=== PATIENT | female | born 1955 | race Caucasian/White ===

== ENCOUNTER 2019-07-24 08:34 | Emergency (ER) | payer SELFPAY ==
[2019-07-24 08:40] VITALS: BP 111/66; PULSE 133; RESP 28; TEMP 36.6; O2SAT 96; BMI 18.3
[2019-07-24 09:11] LABS: Absolute Lymphocyte Count 0.93 X10^3/uL (0.83-4.51); Absolute Neutrophil Count 18.2 X10^3/uL (2.0-7.7); Basophil# 0.05 X10^3/uL; Basophil% 0.2 % (0-1); Hematocrit 53.9 % (37-47); Hemoglobin 17.8 g/dL (12.0-15.0); Lymphocyte # 0.93 X10^3/ul (4.0); Lymphocyte % 4.6 % (19-41); Mean Corpuscular Hgb 29.1 pg (27.0-32.0); Mean Corpuscular Volume 88.1 fL (81-99); Mean Platelet Vol. 9.6 fl (6.2-12.0); Monocyte# 0.96 X10^3/uL; Monocyte% 4.7 % (0-10); NRBC Flagged by Analyzer 0 % (0-5); Neutrophil # 18.18 X10^3/uL (2.7-7.7); Platelet Count 451 K/mm3 (150-450); RBC Distribution Width CV 13.4 % (11.6-14.6); RBC Distribution Width SD 43.1 fl (35.1-43.9); Red Blood Count 6.12 M/mm3 (4.2-5.4); White Blood Count 20.2 K/mm3 (4.4-11.0)
--- NOTE | 2019-07-24 09:18 | ED.VIS.GEN ---
History of Present Illness Chief Complaint: Nausea/Vomiting/Diarrhea Informant: Patient Onset: Weeks Maximum Severity: Mild Narrative: Complains of copious persistent watery diarrhea for almost a week, she is stooling every few minutes water, she began having some vomiting, she is had no blood per vomit or stool she is had no fever, she indicates a few days ago when out of town in [place] she believes she ate ate a salad bar type food restaurant and after that almost immediately became ill with diarrhea, she has no history of GI ailments infection is no past history she is on no medications, indicates she follows a very healthy lifestyle, she lives in the [facility] but is currently staying a local hotel to avoid contact with her ex-, she is able to take sips of water presents for evaluation Past Medical History - Allergies and Home Meds Allergies/Adverse Reactions: Allergies formaldehyde Allergy (Verified 07/24/19 08:39) Shortness of breath procaine [From Novocain] Allergy (Verified 07/24/19 08:39) Angioedema pseudoephedrine [From Sudafed] Allergy (Verified 07/24/19 08:39) Other chocolate flavor Adverse Reaction (Verified 07/24/19 08:39) Diarrhea yaa Adverse Reaction (Verified 07/24/19 08:39) Unknown COLBOLT Allergy (Uncoded 07/24/19 08:39) Unknown ANTIBIOTICS Adverse Reaction (Uncoded 07/24/19 08:39) Nausea Primary Care Physician: Care Physician,No Primary [Primary Care Provider] - Past Medical History: None Review of Systems General: Denies: Chills, Fever, Sweats Eyes: Denies: Visual changes - bilaterally, Diplopia ENT: Denies: Rhinorrhea, Sore throat Cardiovascular: Denies: Chest pain, Palpitations Respiratory: Denies: Dyspnea, Cough, Dyspnea on exertion Gastrointestinal: Reports: Vomiting, Diarrhea. Denies: Abdominal pain, Nausea, Melena, Hematochezia Genitourinary: Denies: Dysuria, Hematuria, Frequency Musculoskeletal: Denies: Back pain, Extremity Pain Skin: Denies: Rash, Wounds Neurological: Denies: Headache, Weakness, Numbness Physical Exam Vital Signs/Narrative: Vital Signs Temp Pulse Resp BP Pulse Ox 07/24/19 08:40 97.8 F 133 H 28 H 111/66 96 General: Well nourished, Well developed, No Acute Distress, - - She is tachycardic and her mucous membranes are slightly dry but otherwise she is awake and alert her abdomen is [place] soft nontender she is moving all 4 extremities see the rest of the exam Head: Normocephalic, Atraumatic Eyes: Perrl, EOMI ENT: Moist mucous membranes, No rhinorrhea Neck: Supple, Nontender Cardiovascular: Regular rate, Regular rhythm, No murmurs Respiratory: No distress, CTA bilaterally, Chest nontender Abdomen: Soft, Nontender, Nondistended, Normal bowel sounds Back: Nontender, Normal Inspection Extremities: Nontender, No edema Skin: Normal color, No rash Neurological: Alert, Oriented x3, Cranial nerves II-XII grossly intact, Normal Strength, Normal Sensation Psychological: Normal affect, Normal Mood Diagnostic/Tx/Re-eval - Medical Decision Making Given all the above IV fluid screening labs stool samples for analysis His white count is elevated as is her lactic acid 2.1, her UA shows signs of UTI urine culture sent, the rest of her studies were generally unremarkable we did recommend CT of the abdomen pelvis given all the above she refused that she is had no diarrhea here she is taking liquids she wants to try light foods we discussed admission with her for all of the above she adamantly refused that since she was feeling better she is taking fluids she has no desire to be in the hospital as that will result in the big hospital bill, given all of the above she will be started on IV Rocephin and oral Cipro she will follow-up with her outpatient providers in [place] or she is given referral to local providers in the [facility] and she will return for change in symptoms we did discuss the concept of UTI sepsis dehydration etc. she voiced clear understanding but wanted to be discharged home she was feeling better we even recommend additional IV fluids but she declined that She had no stool output while here Home stable declined admission Final impression vomiting and diarrhea resolved, UTI, elevated lactic acid level patient declined admission ED Disposition - Plan for ED Patient: Diagnosis: UTI (urinary tract infection) Instructions: VOMITING AND DIARRHEA, Nonspecific (Adult), Understanding Urinary Tract Infections (UTIs) Prescriptions: Ciprofloxacin [Cipro] 500 mg PO BID #14 tab Prescription Printed Referrals: Care Physician,No Primary [Primary Care Provider] - Amita Reyes [NON-STAFF] - Govind Calvillo MD [STAFF PHYSICIAN] -
--- NOTE | 2019-07-24 09:22 | EKG12_ITS ---
Test Reason : N/V Blood Pressure : / mmHG Vent. Rate : 101 BPM Atrial Rate : 101 BPM P-R Int : 112 ms QRS Dur : 070 ms QT Int : 338 ms P-R-T Axes : 061 071 064 degrees QTc Int : 438 ms Sinus tachycardia Nonspecific ST abnormality Abnormal ECG Confirmed by MRAC WEBSTER, THIEN ([id number]), publication editor KENA GUARDADO ([id number]) on 07/26/2019 11:58:18 AM Referred By: RENEE Confirmed By:THIEN TRAN MD
--- NOTE | 2019-07-24 09:25 | NURSING ---
NO OLD EKGS
[2019-07-24] MEDS: 0.9% Normal Saline 1,000 ML 1000 ML IV (09:31)
[2019-07-24 09:39] LABS: ALB/GLOB Ratio 0.9 RATIO (0.9-2.4); AST(SGOT) 37 U/L (15-37); Alanine Aminotransfer ALT/SGPT 43 U/L (13-56); Albumin, Serum 5.2 g/dL (3.2-5.0); Alkaline Phosphatase 124 U/L (45-117); Anion Gap 13 (5-15); BUN 77 mg/dL (7-18); BUN/Creat Ratio 31.2 RATIO (10-20); Calcium,Total 10.5 mg/dL (8.5-10.1); Chloride 108 mmol/L (98-107); Creatinine, Serum 2.47 mg/dL (0.55-1.02); EST Glomerular Filtration Rate 21 mL/min (>60); Est Glom Filt Rate - Afr Amer 25 mL/min (>60); Estimated Creatinine Clearance 18.12 ml/min; Globulin 5.7 g/dL (2.2-4.2); Glucose 165 mg/dL (74-106); Lipase 415 U/L (73-393); Potassium 3.8 mmol/L (3.5-5.1); Protein, Total 10.9 g/dL (6.4-8.2); Sodium Level 145 mmol/L (136-145)
[2019-07-24 10:30] VITALS: BP 131/77; PULSE 97; RESP 20; O2SAT 97
[2019-07-24] MEDS: 0.9% Normal Saline 1,000 ML 999 ML IV (10:30)
[2019-07-24 11:42] LABS: Lactic Acid 2.1 mmol/L (0.4-1.9)
[2019-07-24 11:45] LABS: Color, Urine Yellow (Yellow); Glucose, Dipstick Normal (Normal); Ketone-Dipstick 50 mg/dl (Negative); Leukocyte Esterase-Dipstick 500 /ul (Negative); Nitrite-Dipstick Negative (Negative); Occult Blood-Urine 150 /ul (Negative); Protein-Dipstick 100 mg/dl (Negative); Urine Bilirubin Dipstick Negative (Negative); Urine Clarity Sl. Cloudy (Clear); Urine Urobilinogen Normal (Normal)
[2019-07-24 11:54] LABS: Bacteria 1+ /hpf (None Seen); Hyaline Cast 10-25 SEEN /lpf (0-5); Mucous, Urine RARE /hpf (<or=2+); Red Blood Cells-Urine 0-5 SEEN /hpf (0-5); Squamous Epithelial Cells - UA 0-5 SEEN /hpf (5-10); White Blood Cells 5-10 SEEN /hpf (0-5)
[2019-07-24] MEDS: Ciprofloxacin 250 MG Tablet 500 MG PO (13:32)
[2019-07-24] MEDS: Ceftriaxone 1 GM/50 ML BAG IV (13:33)
[2019-07-24 13:57] VITALS: BP 129/68; PULSE 99; RESP 16; O2SAT 98
[2019-07-24 14:57] LABS: Reflex Lactate? Y
== END 2019-07-24 15:12 | disposition home or self-care (01) ==
PROVIDERS: Emergency Provider Emergency Medicine
DX: N39.0 Urinary tract infection, site not specified (principal); R74.0 Nonspecific elevation of levels of transaminase and lactic acid dehydrogenase [LDH]
CPT/HCPCS: 80053; 81001; 83605; 83690; 85025; 87086; 87088; 93005; 96361; 96365; 96366; 99284; J7030; J7050; A4216

== ENCOUNTER 2019-07-25 13:27 | Inpatient (IN) | payer OTHER, SELFPAY ==
[2019-07-24 08:40] VITALS: BMI 18.3
[2019-07-25] VITALS (8 sets, daily range): BP systolic 112–154; BP diastolic 66–88; PULSE 86–122; RESP 14–23; TEMP 36.6–37.3; O2SAT 97–100; BMI 18.3; BMI 21.2
--- NOTE | 2019-07-25 13:55 | EKG12_ITS ---
Test Reason : DEHYDRATION Blood Pressure : / mmHG Vent. Rate : 080 BPM Atrial Rate : 080 BPM P-R Int : 116 ms QRS Dur : 066 ms QT Int : 378 ms P-R-T Axes : 078 037 032 degrees QTc Int : 435 ms Normal sinus rhythm Nonspecific ST abnormality Abnormal ECG Confirmed by JULES WEBSTER, IGNACIA ([id number]), copy editor KENA GUARDADO ([id number]) on 07/31/2019 11:51:48 AM Referred By: Tai Mock Confirmed By:EDEN VICENTE MD
--- NOTE | 2019-07-25 13:57 | ED.VIS.GEN ---
History of Present Illness Chief Complaint: Nausea/Vomiting Informant: Patient Onset: Today Context: Gradual Onset Timing: Intermittent Narrative: Patient is a 63-year-old female who denies any past medical history presenting with nausea and vomiting. Patient was seen yesterday for vomiting and diarrhea. At that time she was found to have significant leukocytosis, elevated lactate and UTI. Patient states she went to be admitted and was given IV fluids as well as prescription of Cipro. Patient took her evening dose of her Cipro last night. Around midnight last night she started throwing up. She states she was throwing up every 15 minutes. She denies any chest abdominal pain. She states she has had diarrhea in about a week. Try to drink Pedialyte but throws it up as well. She denies any blood in her vomit or stool. She states that she has had formed stools lately. About a week ago she ate a salad bar and thought that is what initially caused her diarrhea. While patient states her vomiting started last night she was having it in her complaint yesterday as well. Patient denies any associated chest pain or difficulty breathing. She states she did not want to be admitted yesterday because she does not have insurance and did not think she could afford to be admitted. She was also feeling better at that time. Past Medical History - Allergies and Home Meds Allergies/Adverse Reactions: Allergies aspirin Allergy (Verified 07/25/19 15:53) facial swelling as a child formaldehyde Allergy (Verified 07/24/19 08:39) Shortness of breath procaine [From Novocain] Allergy (Verified 07/24/19 08:39) Angioedema chocolate flavor Adverse Reaction (Verified 07/24/19 08:39) Diarrhea cinnamon Adverse Reaction (Verified 07/25/19 15:53) Upset Stomach cobalt Adverse Reaction (Verified 07/25/19 15:53) Nausea/Vom/Diarrhea yaa Adverse Reaction (Verified 07/25/19 15:53) Upset Stomach perfume Adverse Reaction (Verified 07/25/19 15:56) difficulty breathing pseudoephedrine [From Sudafed] Adverse Reaction (Verified 07/25/19 15:53) elevated heart rate ANTIBIOTICS Adverse Reaction (Uncoded 07/24/19 08:39) Nausea steroids Adverse Reaction (Uncoded 07/25/19 15:53) nausea/ears ringing Primary Care Physician: Care Physician,No Primary [Primary Care Provider] - Past Medical History: None Surgical History: noncontributory Smoking Status: Never smoker Review of Systems General: Denies: Chills, Fever, Sweats Eyes: Denies: Visual changes - bilaterally, Diplopia ENT: Denies: Rhinorrhea, Sore throat Cardiovascular: Denies: Chest pain, Palpitations Respiratory: Denies: Dyspnea, Cough, Dyspnea on exertion Gastrointestinal: Reports: Nausea, Vomiting, Diarrhea - Resolved. Denies: Abdominal pain, Melena, Hematochezia Genitourinary: Denies: Dysuria, Hematuria, Frequency Musculoskeletal: Denies: Back pain, Extremity Pain Skin: Denies: Rash, Wounds Neurological: Denies: Headache, Weakness, Numbness Physical Exam Vital Signs/Narrative: Vital Signs Temp Pulse Resp BP Pulse Ox 07/25/19 13:28 98 F 122 H 18 133/88 H 98 Inital Vital Signs reviewed: Yes General: Well nourished, Well developed, No Acute Distress Head: Normocephalic, Atraumatic Eyes: Perrl, EOMI ENT: No rhinorrhea, Dry mucous membranes Neck: Supple, Nontender, No JVD Cardiovascular: Regular rhythm, No murmurs, Tachycardia Respiratory: No distress, CTA bilaterally, Chest nontender Abdomen: Soft, Nontender, Nondistended, Normal bowel sounds Back: Nontender, Normal Inspection. Negative for: CVA tenderness Extremities: Nontender, No edema Skin: Normal color, No rash Neurological: Alert, Oriented x3, Cranial nerves II-XII grossly intact, Normal Strength, Normal Sensation Psychological: Normal affect, Normal Mood Diagnostic/Tx/Re-eval Laboratory Data 07/25/19 07/25/19 07/25/19 13:46 13:46 14:09 WBC 14.0 H RBC 5.19 Hgb 15.3 H Hct 47.9 H MCV 92.3 MCH 29.5 MCHC 31.9 L RDW Std Deviation 46.4 H RDW Coeff of Maribell 13.6 Plt Count 363 MPV 9.7 Immature Gran % (Auto) 0.900 Neut % (Auto) 77.9 H Lymph % (Auto) 13.7 L [place]aton % (Auto) 6.4 Eos % (Auto) 0.4 Baso % (Auto) 0.7 Absolute Neuts (auto) 10.9 H Absolute Lymphs (auto) 1.92 Nucleated RBC % 0 Sodium 155 H Potassium 3.8 Chloride 119 H Carbon Dioxide 26.0 Anion Gap 10 BUN 42 H Creatinine 1.37 H Estim Creat Clear Calc 32.68 Est GFR (MDRD) Af Amer 50 L Est GFR (MDRD) Non-Af 41 L BUN/Creatinine Ratio 30.7 H Glucose 104 Lactic Acid 1.9 Calcium 9.3 Total Bilirubin 0.80 AST 56 H ALT 54 Alkaline Phosphatase 97 Total Creatine Kinase 723 H Total Protein 8.7 H Albumin 4.2 Globulin 4.5 H Albumin/Globulin Ratio 0.9 Urine Color Urine Clarity Urine pH Ur Specific [place] Urine Protein Urine Glucose (UA) Urine Ketones Urine Occult Blood Urine Nitrite Urine Bilirubin Urine Urobilinogen Ur Leukocyte Esterase Urine RBC Urine WBC Ur Squamous Epith Cells Urine Bacteria Hyaline Casts Urine Mucus 07/25/19 15:10 WBC RBC Hgb Hct MCV MCH MCHC RDW Std Deviation RDW Coeff of Maribell Plt Count MPV Immature Gran % (Auto) Neut % (Auto) Lymph % (Auto) [place] % (Auto) Eos % (Auto) Baso % (Auto) Absolute Neuts (auto) Absolute Lymphs (auto) Nucleated RBC % Sodium Potassium Chloride Carbon Dioxide Anion Gap BUN Creatinine Estim Creat Clear Calc Est GFR (MDRD) Af Amer Est GFR (MDRD) Non-Af BUN/Creatinine Ratio Glucose Lactic Acid Calcium Total Bilirubin AST ALT Alkaline Phosphatase Total Creatine Kinase Total Protein Albumin Globulin Albumin/Globulin Ratio Urine Color Yellow Urine Clarity Sl. Cloudy Urine pH 6.0 Ur Specific [place] 1.020 Urine Protein 30 H Urine Glucose (UA) Normal Urine Ketones 150 H Urine Occult Blood 150 H Urine Nitrite Negative Urine Bilirubin Negative Urine Urobilinogen Normal Ur Leukocyte Esterase 25 H Urine RBC 5-10 SEEN Urine WBC 0-5 SEEN Ur Squamous Epith Cells 5-10 SEEN Urine Bacteria 0 SEEN Hyaline Casts 0-5 SEEN Urine Mucus 0 SEEN - Rhythm Strip Rhythm Strip: Sinus Rhythm Rate: 80 Ectopy: None - EKG Initial EKG Interpretation: Sinus Rhythm, - - Normal sinus rhythm at a rate of 80 Normal intervals Normal axis T wave flattening in lead III - Medical Decision Making Patient is evaluated for continued nausea and vomiting. She is been trying to take Pedialyte but does not help. She was started on ciprofloxacin yesterday for urinary tract infection. Yesterday patient had a significant leukocytosis, lactic acidosis of 2.0 and an elevated creatinine. She is given IV fluids. She was offered admission at that time but declined. Since she has been home she is continued to vomit. Her creatinine, leukocytosis and lactic acidosis are slightly improved however now patient sodium was 155. It was 145 yesterday. Likely this is also seen with her dehydration. She is given fluids in the emergency room and started on maintenance fluids. I do think she requires admission for further monitoring of her hyponatremia and elevated creatinine. Patient is agreeable with that at this time. She is stable in the emergency room and has a normal neurologic exam. Urine culture is pending from yesterday. I will transition her over to IV Rocephin she did not take her antibiotic today because of her GI symptoms. Her abdomen is soft and nontender I do not think imaging of the abdomen is indicated at this time. She has blood cultures that were drawn today as well that are pending. ED Disposition - Plan for ED Patient: Disposition: Acute Care Hospital [facility] Diagnosis: Hypernatremia, Leukocytosis, Urinary tract infection, Acute kidney injury Referrals: Care Physician,No Primary [Primary Care Provider] -
[2019-07-25] MEDS: 0.9% Normal Saline 1,000 ML 999 ML IV ×2 (14:10→15:20)
--- NOTE | 2019-07-25 14:10 | NURSING ---
NO OLD EKGS
[2019-07-25 14:21] LABS: Absolute Lymphocyte Count 1.92 X10^3/uL (0.83-4.51); Absolute Neutrophil Count 10.9 X10^3/uL (2.0-7.7); Basophil% 0.7 % (0-1); Eosinophil# 0.06 X10^3/uL; Eosinophils% 0.4 % (0-5); Hematocrit 47.9 % (37-47); Hemoglobin 15.3 g/dL (12.0-15.0); Lymphocyte # 1.92 X10^3/ul (4.0); Lymphocyte % 13.7 % (19-41); Mean Corp Hgb Conc 31.9 g/dL (32-36); Mean Corpuscular Hgb 29.5 pg (27.0-32.0); Mean Corpuscular Volume 92.3 fL (81-99); Mean Platelet Vol. 9.7 fl (6.2-12.0); Monocyte% 6.4 % (0-10); NRBC Flagged by Analyzer 0 % (0-5); Neutrophil # 10.92 X10^3/uL (2.7-7.7); Neutrophil % 77.9 % (47-70); Platelet Count 363 K/mm3 (150-450); RBC Distribution Width CV 13.6 % (11.6-14.6); RBC Distribution Width SD 46.4 fl (35.1-43.9); Red Blood Count 5.19 M/mm3 (4.2-5.4)
[2019-07-25] MEDS: Ondansetron 4 MG/2 ML Vial IV (14:36)
[2019-07-25 14:41] LABS: ALB/GLOB Ratio 0.9 RATIO (0.9-2.4); AST(SGOT) 56 U/L (15-37); Alanine Aminotransfer ALT/SGPT 54 U/L (13-56); Albumin, Serum 4.2 g/dL (3.2-5.0); Alkaline Phosphatase 97 U/L (45-117); Anion Gap 10 (5-15); BUN 42 mg/dL (7-18); BUN/Creat Ratio 30.7 RATIO (10-20); CPK Total, Creatine Kinase 723 U/L (26-192); Calcium,Total 9.3 mg/dL (8.5-10.1); Chloride 119 mmol/L (98-107); Creatinine, Serum 1.37 mg/dL (0.55-1.02); EST Glomerular Filtration Rate 41 mL/min (>60); Est Glom Filt Rate - Afr Amer 50 mL/min (>60); Estimated Creatinine Clearance 32.68 ml/min; Globulin 4.5 g/dL (2.2-4.2); Glucose 104 mg/dL (74-106); Potassium 3.8 mmol/L (3.5-5.1); Protein, Total 8.7 g/dL (6.4-8.2); Sodium Level 155 mmol/L (136-145)
[2019-07-25 14:48] LABS: Lactic Acid 1.9 mmol/L (0.4-1.9)
--- NOTE | 2019-07-25 14:49 | ED.RN ---
consulted on antibiotics being given prior to blood cultures. was requested they still be drawn. loretta gamino, [phone]
[2019-07-25 15:19] LABS: Bacteria 0 SEEN /hpf (None Seen); Mucous, Urine 0 SEEN /hpf (<or=2+)
[2019-07-25 15:21] LABS: Color, Urine Yellow (Yellow); Glucose, Dipstick Normal (Normal); Leukocyte Esterase-Dipstick 25 /ul (Negative); Nitrite-Dipstick Negative (Negative); Occult Blood-Urine 150 /ul (Negative); Protein-Dipstick 30 mg/dl (Negative); Urine Bilirubin Dipstick Negative (Negative); Urine Clarity Sl. Cloudy (Clear); Urine Urobilinogen Normal (Normal)
[2019-07-25 15:24] LABS: Ketone-Dipstick 150 mg/dl (Negative)
[2019-07-25 15:27] LABS: White Blood Cells 0-5 SEEN /hpf (0-5)
[2019-07-25 15:28] LABS: Hyaline Cast 0-5 SEEN /lpf (0-5); Red Blood Cells-Urine 5-10 SEEN /hpf (0-5); Squamous Epithelial Cells - UA 5-10 SEEN /hpf (5-10)
--- NOTE | 2019-07-25 16:07 | NURSING ---
PCU YUDITH HYPERNATREMIA
[2019-07-25] MEDS: Ceftriaxone 1 GM/50 ML BAG IV (16:14)
[2019-07-25] MEDS: 0.9% Normal Saline 1,000 ML 150 ML IV ×2 (16:15→22:06)
--- NOTE | 2019-07-25 16:24 | HP.PCM_ITS ---
<Hieu Pimentel - Last Filed: 07/25/19 16:24> Problem List (1) Hypernatremia Status: Acute (2) Acute kidney injury Status: Acute (3) Gastroenteritis Status: Acute History of Present Illness Date of Admission: 07/25/19 Chief Complaint: nausea The patient is a 63 year old F with no significant pmhx who presents to the ER with c/o intractable nausea. The patient presented to the ER for this yesterday and was sent home with cipro for possible UTI. The patient has been sick for approximately 10 days. She states this began after going to a spoiled salad bar in [place], [place]. About 12 hours after, her and everyone that she went with developed nausea vomiting and diarrhea. This went on for about 10 days. She was not able to keep anything down. 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 Today she brings back up anything she tries to keep down. She has not had diarrhea today. No fever/chills. No abd pain. She does not drink. She takes no medications regularly. [] Past Medical History Allergies aspirin Allergy (Verified 07/25/19 15:53) facial swelling as a child formaldehyde Allergy (Verified 07/24/19 08:39) Shortness of breath procaine [From Novocain] Allergy (Verified 07/24/19 08:39) Angioedema chocolate flavor Adverse Reaction (Verified 07/24/19 08:39) Diarrhea cinnamon Adverse Reaction (Verified 07/25/19 15:53) Upset Stomach cobalt Adverse Reaction (Verified 07/25/19 15:53) Nausea/Vom/Diarrhea yaa Adverse Reaction (Verified 07/25/19 15:53) Upset Stomach perfume Adverse Reaction (Verified 07/25/19 15:56) difficulty breathing pseudoephedrine [From Sudafed] Adverse Reaction (Verified 07/25/19 15:53) elevated heart rate ANTIBIOTICS Adverse Reaction (Uncoded 07/24/19 08:39) Nausea steroids Adverse Reaction (Uncoded 07/25/19 15:53) nausea/ears ringing Home Medications: Ambulatory Orders Medication Instructions Recorded Ciprofloxacin [Cipro] 500 mg PO BID 07/25/19 Surgical History: noncontributory Psychiatric History: No pertinent psych hx [employer]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 Denies: Chills, Fever, Weight Change HEENT: Denies: Head Aches, Sinus Congestion, Sinus Drainage Cardiovascular: Denies: Chest Pain, Heaviness, Light Headedness, Palpitations Respiratory: Denies: Cough, Shortness of Breath, Shortness of breath at rest, Sputum production Gastrointestinal: Reports: Diarrhea, Nausea, Vomiting. Denies: Abdominal Pain Genitourinary: Denies: Dysuria Musculoskeletal: Denies: Joint Pain, Joint Tenderness Skin: Denies: Rash, Wounds Neurological: Denies: Numbness, Tingling, Focal weakness Psychiatric: Denies: Anxiety, Depression, Homicidal Ideations, Suicidal Ideations Hematologic/ Lymphatic: Denies: Easy Bruising, Easy Bleeding VTE Information - Inpt Only VTE Present on Admission: No VTE Mechan Device Prophylaxis: None VTE Pharm Prophylaxis ordered?: Yes Patient Problems: Active and Suspected Problems Hypernatremia (Acute) Leukocytosis (Acute) Urinary tract infection (Acute) Acute kidney injury (Acute) Gastroenteritis (Acute) - Physical Exam Vitals/I&O's: Vital Signs Temp Pulse Resp BP Pulse Ox 98.9 F 106 H 23 H 154/88 H 98 07/25/19 16:00 07/25/19 16:15 07/25/19 16:15 07/25/19 16:15 07/25/19 16:15 Oxygen Delivery Method Room Air Weight: 110 lb Body Mass Index (BMI) 18.3 Intake and Output for Last 24 Hours 07/23/19 07/24/19 07/25/19 23:59 23:59 23:59 Intake Total 1898.1 / 189.1 Balance 1898.1898.1 General: Alert, Oriented x3, Cooperative HEENT: Atraumatic, PERRLA, EOMI, Normocephalic Neck: Supple, No JVD, Negative Carotid Bruits Lungs: Clear to auscultation, Normal air movement Cardiovascular: Regular rate, No murmurs Abdomen: Bowel Sounds Present, Soft, Non Tender Extremities: No edema, Capillary Refill Less than 3 Seconds Skin: No rashes, No breakdown Musculoskeletal: No Tenderness to Palpation of Joints or Extremities Neurological: Cranial nerves II-XII grossly intact Psych/Mental Status: Appropriate, Anxious, Alert and oriented to time, place, person, mood and affect Laboratory Results 07/25/19 13:46: Sodium 155 H, Potassium 3.8, Chloride 119 H, Carbon Dioxide 26.0, Anion Gap 10, BUN 42 H, Creatinine 1.37 H, Estim Creat Clear Calc 32.68, Est GFR (MDRD) Af Amer 50 L, Est GFR (MDRD) Non-Af 41 L, BUN/Creatinine Ratio 30.7 H, Glucose 104, Calcium 9.3, Total Bilirubin 0.80, AST 56 H, ALT 54, Alkaline Phosphatase 97, Total Creatine Kinase 723 H, Total Protein 8.7 H, Albumin 4.2, Globulin 4.5 H, Albumin/Globulin Ratio 0.9 07/25/19 13:46: Lactic Acid 1.9 07/25/19 13:46: Lipase Pending 07/25/19 14:09: WBC 14.0 H, RBC 5.19, Hgb 15.3 H, Hct 47.9 H, MCV 92.3, MCH 29.5, MCHC 31.9 L, RDW Std Deviation 46.4 H, RDW Coeff of Maribell 13.6, Plt Count 363, MPV 9.7, Immature Gran % (Auto) 0.900, Neut % (Auto) 77.9 H, Lymph % (Auto) 13.7 L, [place] % (Auto) 6.4, Eos % (Auto) 0.4, Baso % (Auto) 0.7, Absolute Neuts (auto) 10.9 H, Absolute Lymphs (auto) 1.92, Nucleated RBC % 0 07/25/19 15:10: Urine Color Yellow, Urine Clarity Sl. Cloudy, Urine pH 6.0, Ur Specific [place] 1.020, Urine Protein 30 H, Urine Glucose (UA) Normal, Urine Ketones 150 H, Urine Occult Blood 150 H, Urine Nitrite Negative, Urine Bilirubin Negative, Urine Urobilinogen Normal, Ur Leukocyte Esterase 25 H, Urine RBC 5-10 SEEN, Urine WBC 0-5 SEEN, Ur Squamous Epith Cells 5-10 SEEN, Urine Bacteria 0 SEEN, Hyaline Casts 0-5 SEEN, Urine Mucus 0 SEEN Current Medications Sodium Chloride () 1,000 mls @ 150 mls/hr IV .Q6H40M [facility] Last Admin: 07/25/19 16:15 Dose: 150 mls/hr Documented by: Ceftriaxone Sodium (Rocephin) 1 gm in 50 mls @ 100 mls/hr IV X1 ONE Stop: 07/25/19 16:30 Last Admin: 07/25/19 16:14 Dose: 100 mls/hr Documented by: Assessment/Plan All Active Problems Hypernatremia (Acute) Leukocytosis (Acute) Urinary tract infection (Acute) Acute kidney injury (Acute) Gastroenteritis (Acute) 1. Hypernatremia 2/2 dehydration - N/V/D over the past 10 days with little PO intake. Tachycardic, but improved with IV fluids in ER. Continue NS. Switch to 0.45% NS if not improved. Re check serum sodium tonight. Clear liquid diet and advance as tolerated. 2. JAGDISH - 2/2 dehydration - IV fluids. Not on nephrotoxic agents at home. CK elevated, AST elevated. 3. UTI ruled out - no urinary symptoms at all over the past ten days. DC cipro. 4. Acute gastroenteritis suspect viral - check enteric panel. everyone she was with at the restaurant was sick with similar complaints. Supportive care. Elevated WBCs, no fever. LA negative. Lipase negative. DVT ppx: heparin DC planning: pt is independent at home and otherwise healthy This patient was seen by Hieu Pimentel PA-C under the supervision of Dr. Mock. <Tai Mock - Last Filed: 07/25/19 17:15> History of Present Illness The patient is a 63 year old F with no significant past medical history came to ER with intractable nausea and vomiting. As per patient, she had food poisoning about 10 days ago after eating salad and had nausea and vomiting and watery diarrhea but diarrhea stopped 2 days ago. Her GI symptoms nausea, vomiting and diarrhea started about 12 hours after eating salad. Yesterday she came to ER and was started on Cipro for positive pyuria, WBC 5-10 cells with LE 500 leukocytosis 20,000. She denies lower related symptoms including burning micturition, increased frequency or urgency. Her vomiting and nausea became more frequent and severe after Cipro. I think, leukocytosis and high H&H 17.8/53.9 is mainly secondary to hemoconcentration and inflammatory reaction but not due to UTI. She also got 1 dose of ceftriaxone in the ER. Past Medical History Allergies aspirin Allergy (Verified 07/25/19 15:53) facial swelling as a child formaldehyde Allergy (Verified 07/24/19 08:39) Shortness of breath procaine [From Novocain] Allergy (Verified 07/24/19 08:39) Angioedema chocolate flavor Adverse Reaction (Verified 07/24/19 08:39) Diarrhea cinnamon Adverse Reaction (Verified 07/25/19 15:53) Upset Stomach cobalt Adverse Reaction (Verified 07/25/19 15:53) Nausea/Vom/Diarrhea yaa Adverse Reaction (Verified 07/25/19 15:53) Upset Stomach perfume Adverse Reaction (Verified 07/25/19 15:56) difficulty breathing pseudoephedrine [From Sudafed] Adverse Reaction (Verified 07/25/19 15:53) elevated heart rate ANTIBIOTICS Adverse Reaction (Uncoded 07/24/19 08:39) Nausea steroids Adverse Reaction (Uncoded 07/25/19 15:53) nausea/ears ringing Review of Systems Gastrointestinal: Reports: Nausea, Vomiting Psychiatric: Reports: Anxiety VTE Information - Inpt Only VTE Present on Admission: No VTE Mechan Device Prophylaxis: None VTE Pharm Prophylaxis ordered?: Yes - Physical Exam Vitals/I&O's: Vital Signs Temp Pulse Resp BP Pulse Ox 98.9 F 106 H 23 H 154/88 H 98 07/25/19 16:00 07/25/19 16:15 07/25/19 16:15 07/25/19 16:15 07/25/19 16:15 Oxygen Delivery Method Room Air Weight: 110 lb Body Mass Index (BMI) 18.3 Intake and Output for Last 24 Hours 07/23/19 07/24/19 07/25/19 23:59 23:59 23:59 Intake Total 2049.0 / 2049.0 Balance 2049. / General: Alert, Oriented x3, Cooperative HEENT: Atraumatic, PERRLA, EOMI, Normocephalic Oral: No Gingival or Mucosal Lesions/ Ulcerations, Dry Mucosa Neck: Supple, No JVD, Negative Carotid Bruits Lungs: Clear to auscultation, Normal air movement, No rhonchi, No wheeze, No rales Cardiovascular: Regular rate, Regular Rhythm, Normal S1, Normal S2, No murmurs Abdomen: Bowel Sounds Present, Soft, Non Tender, Non-Distended Extremities: No edema, Capillary Refill Less than 3 Seconds Skin: No rashes, No breakdown Musculoskeletal: No Tenderness to Palpation of Joints or Extremities, Arthritic Changes Neurological: Cranial nerves II-XII grossly intact, Deep Tendon Reflexes 2+/4 and Symmetrical, Neuro grossly intact Psych/Mental Status: Normal Affect, Appropriate Laboratory Results 07/25/19 13:46: Sodium 155 H, Potassium 3.8, Chloride 119 H, Carbon Dioxide 26.0, Anion Gap 10, BUN 42 H, Creatinine 1.37 H, Estim Creat Clear Calc 32.68, Est GFR (MDRD) Af Amer 50 L, Est GFR (MDRD) Non-Af 41 L, BUN/Creatinine Ratio 30 .7 H, Glucose 104, Calcium 9.3, Total Bilirubin 0.80, AST 56 H, ALT 54, Alkaline Phosphatase 97, Total Creatine Kinase 723 H, Total Protein 8.7 H, Albumin 4.2, Globulin 4.5 H, Albumin/Globulin Ratio 0.9 07/25/19 13:46: Lactic Acid 1.9 07/25/19 13:46: Lipase 397 H 07/25/19 14:09: WBC 14.0 H, RBC 5.19, Hgb 15.3 H, Hct 47.9 H, MCV 92.3, MCH 29.5, MCHC 31.9 L, RDW Std Deviation 46.4 H, RDW Coeff of Maribell 13.6, Plt Count 363, MPV 9.7, Immature Gran % (Auto) 0.900, Neut % (Auto) 77.9 H, Lymph % (Auto) 13.7 L, [place] % (Auto) 6.4, Eos % (Auto) 0.4, Baso % (Auto) 0.7, Absolute Neuts (auto) 10.9 H, Absolute Lymphs (auto) 1.92, Nucleated RBC % 0 07/25/19 15:10: Urine Color Yellow, Urine Clarity Sl. Cloudy, Urine pH 6.0, Ur Specific [place] 1.020, Urine Protein 30 H, Urine Glucose (UA) Normal, Urine Ketones 150 H, Urine Occult Blood 150 H, Urine Nitrite Negative, Urine Bilirubin Negative, Urine Urobilinogen Normal, Ur Leukocyte Esterase 25 H, Urine RBC 5-10 SEEN, Urine WBC 0-5 SEEN, Ur Squamous Epith Cells 5-10 SEEN, Urine Bacteria 0 SEEN, Hyaline Casts 0-5 SEEN, Urine Mucus 0 SEEN Current Medications Sodium Chloride () 1,000 mls @ 150 mls/hr IV .Q6H40M [facility] Last Admin: 07/25/19 16:15 Dose: 150 mls/hr Documented by: Sodium Chloride () 10 - 40 ml IV UD PRN PRN Reason: SALINE FLUSH Assessment/Plan This patient was seen in conjunction with Hieu JACKSON. I have independently interviewed and examined the patient and reviewed pertinent history, examination findings, laboratory and plan of management. I have reviewed the note and agree with the documented findings with the few additional points. In brief, patient is admitted for nausea, vomiting and severe dehydration probably secondary to food poisoning. Diarrhea has stopped. Nausea and vomiting got worse after Cipro. Patient also was found hyponatremia, sodium 155 which was 145 yesterday. BUN/creatinine has improved, from 77/2 0.47-40 2/1.37 suggestive of acute kidney injury, prerenal in etiology. Lactic acid 1.9. Leukocytosis and hemoconcentration has improved. H&H 15.3/47.9 diabetes secondary to hemoconcentration. The patient had blood cultures x2 and urine culture sent on 07/25. We will follow the cultures. Patient does not need antibiotics as she does not have any focal symptoms of infection. Enteric bacteriology panel ordered. Acute kidney injury, prerenal etiology I have discussed my assessment with Hieu JACKSON and orders have been reviewed. Code Visit OBSV E&M: 06173 Initial observation care L3
[2019-07-25 16:28] LABS: Lipase 397 U/L (73-393)
--- NOTE | 2019-07-25 16:29 | ED.RN ---
pt received 1500 ml bolus per md order not a 2000ml bolus reflected on the mar.
[2019-07-25] MEDS: NYSTATIN 500,000 UNIT/5 ML UDC 500000 UNIT PO (22:05)
[2019-07-25] MEDS: Ensure Clear 120 ML Liquid PO (22:05)
[2019-07-25 22:09] LABS: Sodium Level 155 mmol/L (136-145)
[2019-07-26 02:13] VITALS: BP 117/63; PULSE 89; RESP 16; TEMP 36.8; O2SAT 96
[2019-07-26] MEDS: 0.9% Normal Saline 1,000 ML 150 ML IV (04:18)
[2019-07-26] MEDS: NYSTATIN 500,000 UNIT/5 ML UDC 500000 UNIT PO ×2 (05:31→14:40)
[2019-07-26 05:55] LABS: Absolute Lymphocyte Count 1.74 X10^3/uL (0.83-4.51); Absolute Neutrophil Count 6.7 X10^3/uL (2.0-7.7); Basophil# 0.06 X10^3/uL; Basophil% 0.6 % (0-1); Eosinophil# 0.19 X10^3/uL; Hematocrit 36.1 % (37-47); Hemoglobin 11.3 g/dL (12.0-15.0); Lymphocyte # 1.74 X10^3/ul (4.0); Lymphocyte % 18.1 % (19-41); Mean Corp Hgb Conc 31.3 g/dL (32-36); Mean Corpuscular Volume 92.6 fL (81-99); Mean Platelet Vol. 9.8 fl (6.2-12.0); Monocyte# 0.85 X10^3/uL; Monocyte% 8.8 % (0-10); NRBC Flagged by Analyzer 0 % (0-5); Neutrophil # 6.71 X10^3/uL (2.7-7.7); Neutrophil % 69.9 % (47-70); Platelet Count 242 K/mm3 (150-450); RBC Distribution Width SD 47.2 fl (35.1-43.9); White Blood Count 9.6 K/mm3 (4.4-11.0)
[2019-07-26 06:49] LABS: AST(SGOT) 46 U/L (15-37); Alanine Aminotransfer ALT/SGPT 44 U/L (13-56); Albumin, Serum 3.2 g/dL (3.2-5.0); Alkaline Phosphatase 69 U/L (45-117); Anion Gap 8 (5-15); BUN 25 mg/dL (7-18); BUN/Creat Ratio 27.1 RATIO (10-20); CPK Total, Creatine Kinase 467 U/L (26-192); Chloride 125 mmol/L (98-107); Creatinine, Serum 0.92 mg/dL (0.55-1.02); EST Glomerular Filtration Rate 65 mL/min (>60); Est Glom Filt Rate - Afr Amer 79 mL/min (>60); Estimated Creatinine Clearance 55.59 ml/min; Globulin 3.1 g/dL (2.2-4.2); Glucose 85 mg/dL (74-106); Potassium 3.7 mmol/L (3.5-5.1); Protein, Total 6.3 g/dL (6.4-8.2); Sodium Level 154 mmol/L (136-145)
--- NOTE | 2019-07-26 07:51 | PN_ITS ---
Patient Problems: Active and Suspected Problems Hypernatremia (Acute) Leukocytosis (Acute) Urinary tract infection (Acute) Acute kidney injury (Acute) Gastroenteritis (Acute) Reason for Visit: Follow-up hypernatremia Subjective: Patient is a 63-year-old lady recently treated for acute cystitis as outpatient who presented to the emergency department with nausea vomiting. Patient was found to have hyponatremia with sodium levels of 156 admitted to regular nursing floor for further management Objective: GENERAL: cooperative HEENT: Atraumatic; EYES; Anicteric, Normal Conjunctiva NECK; supple, normal thyroid, RESPIRATORY: Diminished to auscultation CARDIOVASCULAR: Regular S1 S2, GI: soft, normoactive bowel sounds, : No Renal angle tenderness; EXTREMITIES: No edema, no clubbing, MUSCULOSKELETAL: no muscle waisting NEURO: Awake; no lateralizing signs. SKIN: No Rash PSYCH; Flat affect Vitals/I&O's: Vital Signs Temp Pulse Resp BP Pulse Ox 98.2 F 89 16 117/63 96 07/26/19 02:13 07/26/19 02:13 07/26/19 02:13 07/26/19 02:13 07/26/19 02:13 Oxygen Delivery Method Room Air Weight: 58.786 kg Body Mass Index (BMI) 21.2 Intake and Output for Last 24 Hours 07/24/19 07/25/19 07/26/19 23:59 23:59 23:59 Intake Total 2927.5 / 2927.5 1030 / 1030 Output Total 725 / 725 Balance 2927.5 / 2927.5 305 / 305 Laboratory Results 07/25/19 13:46: Sodium 155 H, Potassium 3.8, Chloride 119 H, Carbon Dioxide 26.0, Anion Gap 10, BUN 42 H, Creatinine 1.37 H, Estim Creat Clear Calc 32.68, Est GFR (MDRD) Af Amer 50 L, Est GFR (MDRD) Non-Af 41 L, BUN/Creatinine Ratio 30.7 H, Glucose 104, Calcium 9.3, Total Bilirubin 0.80, AST 56 H, ALT 54, Alkaline Phosphatase 97, Total Creatine Kinase 723 H, Total Protein 8.7 H, Albumin 4.2, Globulin 4.5 H, Albumin/Globulin Ratio 0.9 07/25/19 13:46: Lactic Acid 1.9 07/25/19 13:46: Lipase 397 H 07/25/19 14:09: WBC 14.0 H, RBC 5.19, Hgb 15.3 H, Hct 47.9 H, MCV 92.3, MCH 29.5, MCHC 31.9 L, RDW Std Deviation 46.4 H, RDW Coeff of Maribell 13.6, Plt Count 363, MPV 9.7, Immature Gran % (Auto) 0.900, Neut % (Auto) 77.9 H, Lymph % (Auto) 13.7 L, [place] % (Auto) 6.4, Eos % (Auto) 0.4, Baso % (Auto) 0.7, Absolute Neuts (auto) 10.9 H, Absolute Lymphs (auto) 1.92, Nucleated RBC % 0 07/25/19 15:10: Urine Color Yellow, Urine Clarity Sl. Cloudy, Urine pH 6.0, Ur Specific [place] 1.020, Urine Protein 30 H, Urine Glucose (UA) Normal, Urine Ketones 150 H, Urine Occult Blood 150 H, Urine Nitrite Negative, Urine Bilirubin Negative, Urine Urobilinogen Normal, Ur Leukocyte Esterase 25 H, Urine RBC 5-10 SEEN, Urine WBC 0-5 SEEN, Ur Squamous Epith Cells 5-10 SEEN, Urine Bacteria 0 SEEN, Hyaline Casts 0-5 SEEN, Urine Mucus 0 SEEN 07/25/19 21:52: Sodium 155 H 07/26/19 05:30: WBC 9.6, RBC 3.90 L, Hgb 11.3 L, Hct 36.1 L, MCV 92.6, MCH 29.0, MCHC 31.3 L, RDW Std Deviation 47.2 H, RDW Coeff of Maribell 14.0, Plt Count 242, MPV 9.8, Immature Gran % (Auto) 0.600, Neut % (Auto) 69.9, Lymph % (Auto) 18.1 L, [place] % (Auto) 8.8, Eos % (Auto) 2.0, Baso % (Auto) 0.6, Absolute Neuts (auto) 6.7, Absolute Lymphs (auto) 1.74, Nucleated RBC % 0 07/26/19 05:30: Sodium 154 H, Potassium 3.7, Chloride 125 H, Carbon Dioxide 21.0, Anion Gap 8, BUN 25 H, Creatinine 0.92, Estim Creat Clear Calc 55.59, Est GFR (MDRD) Af Amer 79, Est GFR (MDRD) Non-Af 65, BUN/Creatinine Ratio 27.1 H, Glucose 85, Calcium 8.0 L, Total Bilirubin 0.60, AST 46 H, ALT 44, Alkaline Phosphatase 69, Total Creatine Kinase 467 H, Total Protein 6.3 L, Albumin 3.2, Globulin 3.1, Albumin/Globulin Ratio 1.0 Current Medications Acetaminophen (Tylenol) 650 mg PO Q6H PRN PRN PRN Reason: Pain 1-10 or Fever Heparin Sodium (Porcine) (Heparin Na) 5,000 unit SC Q12 [facility] Last Admin: 07/25/19 22:07 Dose: Not Given Documented by: Sodium Chloride () 1,000 mls @ 150 mls/hr IV .Q6H40M [facility] Last Admin: 07/26/19 04:18 Dose: 150 mls/hr Documented by: Nutritional Formula (Lactose Free) (Ensure Clear) 120 ml PO 4X/DAY [facility] Last Admin: 07/25/19 22:05 Dose: 120 ml Documented by: Nystatin (Nystatin) 500,000 unit PO TID [facility] Last Admin: 07/26/19 05:31 Dose: 500,000 unit Documented by: Ondansetron HCl (Zofran) 4 mg IV Q6H PRN PRN PRN Reason: NAUSEA Promethazine HCl (Phenergan) 6.25 mg IV Q6H PRN PRN PRN Reason: NAUSEA/VOMITING Medical Necessity - Tobacco Use Smoking Status: Never smoker Tobacco Use: Non-smoker Assessment/Plan All Active Problems Hypernatremia (Acute) Leukocytosis (Acute) Urinary tract infection (Acute) Acute kidney injury (Acute) Gastroenteritis (Acute) Patient is a 63-year-old lady recently treated for acute cystitis as outpatient who presented to the emergency department with nausea vomiting. Patient was found to have hyponatremia with sodium levels of 156 admitted to regular nursing floor for further management 1. Acute hypernatremia ?Suspected to be secondary to dehydration patient was started on saline however there was no significant change in patient sodium levels. Normal saline discontinued started on 0.45 saline with every 4 monitoring of electrolytes 2. Insufficiency Secondary to dehydration managed with IV fluids with subsequent monitoring of electrolyte 3. Acute cystitis ~recently completed treatment as outpatient 4. Acute gastroenteritis suspected to be viral in etiology ~Managed symptomatically 5. Elevated CPK levels ?Patient being managed with fluids with subsequent monitoring 6. DVT prophylaxis ?SC heparin Code Visit Inpatient E&M: 49034 Subs Hosp L2
[2019-07-26] MEDS: Ensure Clear 120 ML Liquid PO ×2 (08:36→14:40)
[2019-07-26] MEDS: 0.45% Normal Saline 1,000 ML 125 ML IV ×2 (08:36→14:42)
[2019-07-26 08:45] VITALS: BP 104/66; PULSE 74; RESP 16; TEMP 36.7; O2SAT 98
--- NOTE | 2019-07-26 10:00 | CASEMGMT ---
RN CM Assessment Presentation: Intractable nausea secondary to food poisoning. Na 155 Intro role of CM and purpose of RN CM assessment to patient in room. Pt is awake, alert and able to partcipate in assessment. Demographics, PCP and Pharmacy verified. 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 Pt very vague as to which physician she has seen in [place] and when she will get her documents replaced. PCP: none. pt did not wish to have PCP list. States she has name of 2 doctors she can see, and she has local urgent care she goes to.Declined assistance Specialists: none Preferred Pharmacy: [facility] Insurance: Self pay Prescription Benefit: no LNOK: friend listed. Mother is next of kin, however pt states she has alzheimers. Living Arrangements: lives with her mother presently. Transportation: drives, but states no license at this time. DME: none HHC: none Patient DC goals: home DC PLAN: anticipate home. Pt states she will f/u with one of the physicians given to her in ER. Adi MCBRIDEN RN ACM
--- NOTE | 2019-07-26 10:01 | CASEMGMT ---
Social Work Note Pt is listed as self-pay. SW reviewed PFS, pt paid deposit for self-pay deposit program. SW met with pt and introduced self and role at [facility]. Pt is alert and orientated x3. Pt confirms that she currently doesn't have insurance and that she paid the deposit this morning. Pt states that she had to quit her job to take care of her mother who has dementia and is turning 65 in October. SW educated pt on Medicaid and that she could qualify for it if she completes application. Pt was receptive to taking application, states she is not sure if she will complete the application or not. SW provided pt with additional financial resources including [employer], [employer] [place], [facility]mita Reyes, and prescription assistance resources. Pt thanked this worker, denied additional needs or concerns at this time. Marci Head RAILROAD COOK, GLASS INSTALLER
--- NOTE | 2019-07-26 10:50 | CASEMGMT ---
Social Work Note RN CM spoke with this pt regarding concerns that pt doesn't have any ID and is taking care of her mother who has Alzheimer's Dementia. SW met with pt again to discuss concerns. 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 SW offered to provide pt with resources to get documents back but pt denied stating she knows how to get the documents but hasn't had the time to do so. Pt states that it is hard to leave her mom alone. SW asked pt who is watching her mother now. Pt states her [employer] friend Itzel who is listed on contact demographics sheet who has been a long friend of her mother is currently staying with her while pt is in hospital. Pt states that she has hired aides to come into the home weekly to clean her mother's home as well. SW asked pt about her ex- because per the ED documents she is living in a hotel in [place] at this time to get away from her ex-. Pt confirms that she was living in a hotel room until the end of April when she decided to move into her mother's home to cafe for her. Pt states that her ex- is annoying and will randomly show up at her house in [place]. Pt denied any safety concerns, states her ex- is not a threat to her. SW encouraged pt that if she ever feels threaten by her ex- or anyone to all the Police. Pt states she knows to do so. SW also asked pt about apparently going to [place] a few weeks ago (per ED documentation). Pt confirms that she was in [place] a few weeks ago as an old school friend of her's retired and went there to see her. Pt again confirms that Itzel, pt's friend, was able to watch pt's mother when she was in [place]. Pt states that she ate at a salad bar in [place] and then became sick. Pt states that she and her friends all got sick from eating the salad bar. Pt states that she plans on meeting with her family attorney recruiter once she leaves the hospital to discuss either selling her home in [place] or keeping it and also about financial and possibility getting pt's mom into an Assisted Living or ECF. SW back in to speak with pt and asked for her mother's address as that is the current place the pt is at and the address that pt will be returning to at discharge. Pt states that her mother only has a PO Box ([address] SW asked the address that her mom's house was before she got PO Box. Pt states that the address was [address], [place]. Pt states that her mother's name is Svetlana Bautista. SW placed a call to [place] with APS and left message regarding referral. Marci Head KIER TENDER, GLASS BELT SANDER
[2019-07-26 11:04] LABS: Anion Gap 9 (5-15); BUN 20 mg/dL (7-18); BUN/Creat Ratio 18.5 RATIO (10-20); Calcium,Total 8.1 mg/dL (8.5-10.1); Chloride 117 mmol/L (98-107); Creatinine, Serum 1.08 mg/dL (0.55-1.02); EST Glomerular Filtration Rate 54 mL/min (>60); Est Glom Filt Rate - Afr Amer 66 mL/min (>60); Estimated Creatinine Clearance 47.35 ml/min; Glucose 114 mg/dL (74-106); Potassium 3.8 mmol/L (3.5-5.1); Sodium Level 149 mmol/L (136-145)
[2019-07-26 14:45] VITALS: BP 107/74; PULSE 82; RESP 16; TEMP 36.6; O2SAT 99
[2019-07-26 15:00] LABS: Anion Gap 9 (5-15); BUN 18 mg/dL (7-18); BUN/Creat Ratio 19.7 RATIO (10-20); Chloride 116 mmol/L (98-107); Creatinine, Serum 0.92 mg/dL (0.55-1.02); EST Glomerular Filtration Rate 66 mL/min (>60); Est Glom Filt Rate - Afr Amer 79 mL/min (>60); Estimated Creatinine Clearance 55.59 ml/min; Glucose 94 mg/dL (74-106); Potassium 3.4 mmol/L (3.5-5.1); Sodium Level 149 mmol/L (136-145)
--- NOTE | 2019-07-27 10:55 | PCM.DC.SUM ---
Discharge Date and Diagnosis Date of Admission: 07/25/19 Date of Discharge: 07/27/19 - Primary Discharge Diagnosis Hypernatremia Hospital Course and Treatment Summary of Care Provided: Patient is a 63-year-old lady recently treated for acute cystitis as outpatient who presented to the emergency department with nausea vomiting. Patient was found to have hyponatremia with sodium levels of 156 admitted to regular nursing floor for further management 1. Acute hypernatremia ?Suspected to be secondary to dehydration patient was started on saline however there was no significant change in patient sodium levels. Normal saline discontinued started on 0.45 saline with every 4 monitoring of electrolytes PATIENT ELECTED TO SIGN OUT AGAINST MEDICAL EVIDENCE 2. Acute Renal Insufficiency Secondary to dehydration managed with IV fluids with subsequent monitoring of electrolyte 3. Acute cystitis ~recently completed treatment as outpatient 4. Acute gastroenteritis suspected to be viral in etiology ~Managed symptomatically 5. Elevated CPK levels ?Patient being managed with fluids with subsequent monitoring 6. DVT prophylaxis ?SC heparin - Physical Exam Vitals/I&O's: Vital Signs Temp Pulse Resp BP Pulse Ox 97.9 F 82 16 107/74 99 07/26/19 14:45 07/26/19 14:45 07/26/19 14:45 07/26/19 14:45 07/26/19 14:45 Oxygen Delivery Method Room Air Weight: 58.786 kg Body Mass Index (BMI) 21.2 Intake and Output for Last 24 Hours 07/25/19 07/26/19 07/27/19 23:59 23:59 23:59 Intake Total 2927.5 / 2927.5 2943.75 / 2943.75 Output Total 1025 / 1025 Balance 2927.5 / 2927.5 1918.75 / 1918.75 General: Alert HEENT: Atraumatic Neurological: Neuro grossly intact Psych/Mental Status: Normal Affect Laboratory Results 07/26/19 10:00: Sodium 149 H, Potassium 3.8, Chloride 117 H, Carbon Dioxide 23.0, Anion Gap 9, BUN 20 H, Creatinine 1.08 H, Estim Creat Clear Calc 47.35, Est GFR (MDRD) Af Amer 66, Est GFR (MDRD) Non-Af 54 L, BUN/Creatinine Ratio 18.5, Glucose 114 H, Calcium 8.1 L 07/26/19 14:15: Sodium 149 H, Potassium 3.4 L, Chloride 116 H, Carbon Dioxide 24.0, Anion Gap 9, BUN 18, Creatinine 0.92, Estim Creat Clear Calc 55.59, Est GFR (MDRD) Af Amer 79, Est GFR (MDRD) Non-Af 66, BUN/Creatinine Ratio 19.7, Glucose 94, Calcium 8.0 L Home Medications: Medications to take at Discharge Ciprofloxacin [Cipro] 500 mg PO BID 07/25/19 Primary Care Physician: Care Physician,No Primary [Primary Care Provider] - Disposition: Against Medical Advice Minutes spent on discharge:: 35 Patient Condition:: Stable Medical Necessity - Tobacco Use Smoking Status: Never smoker Tobacco Use: Non-smoker Meaningful Use Info Meaningful Use Diagnoses (Choose all that apply): None applicable Code Visit Inpatient E&M: 65160 Disch Hosp
--- NOTE | 2019-07-31 08:56 | CASEMGMT ---
Social Work Note SW spoke with Ankush at [facility]. Ankush states pt's mother is actually living in [facility] and she made APS report to [facility] APS. Marci Head MARKETING GRAPHICS SPECIALIST, COMPLEX HUMAN RESOURCES MANAGER
== END 2019-07-26 18:48 | disposition left against medical advice (07) | DRG 641 ==
LOC: ED 16:01 → MS3 18:02
PROVIDERS: Physician Assistant; Admitting Provider Internal Medicine; Emergency Provider Emergency Medicine; Referring Provider Internal Medicine; Visit Provider Internal Medicine
DX: E87.0 Hyperosmolality and hypernatremia (principal); N17.9 Acute kidney failure, unspecified; E86.0 Dehydration; R74.8 Abnormal levels of other serum enzymes; A08.4 Viral intestinal infection, unspecified
CPT/HCPCS: 36415; 80048; 80053; 81001; 82550; 83605; 83690; 84295; 85025; 87040; 93005; 97802; 99285; J7030; J7040; J2405

== ENCOUNTER 2019-08-11 08:30 | Emergency (ER) | payer OTHER, SELFPAY ==
[2019-07-25 17:35] VITALS: BMI 21.2
[2019-08-11 08:31] VITALS: BP 126/87; PULSE 128; RESP 16; TEMP 36.6; O2SAT 99; BMI 19.1
[2019-08-11 08:34] VITALS: BP 125/86; PULSE 117; RESP 20; TEMP 36.6; O2SAT 98
--- NOTE | 2019-08-11 08:41 | ED.DCSUM_ITS ---
History of Present Illness Chief Complaint: Cough Informant: Patient Onset: Days Current Severity: Mild Maximum Severity: Mild Narrative: Patient presents with cough and concern for thrush and bronchitis. Patient was admitted to the hospital in mid July for hypernatremia. She signed herself out AGAINST MEDICAL ADVICE. Patient states since that time she is had rare cough but is bringing up white sputum that she thinks is thrush. Yesterday she developed a more persistent cough and is bringing up green-colored sputum. She denies fever. She does report she took the entire course of Cipro that she had been given for UTI. She has no urinary symptoms. She denies any abdominal pain or vomiting. Past Medical History - Allergies and Home Meds Allergies/Adverse Reactions: Allergies aspirin Allergy (Verified 08/11/19 08:34) facial swelling as a child formaldehyde Allergy (Verified 08/11/19 08:34) Shortness of breath procaine [From Novocain] Allergy (Verified 08/11/19 08:34) Angioedema chocolate flavor Adverse Reaction (Verified 08/11/19 08:34) Diarrhea cinnamon Adverse Reaction (Verified 08/11/19 08:34) Upset Stomach cobalt Adverse Reaction (Verified 08/11/19 08:34) Nausea/Vom/Diarrhea yaa Adverse Reaction (Verified 08/11/19 08:34) Upset Stomach perfume Adverse Reaction (Verified 08/11/19 08:34) difficulty breathing pseudoephedrine [From Sudafed] Adverse Reaction (Verified 08/11/19 08:34) elevated heart rate ANTIBIOTICS Adverse Reaction (Uncoded 08/11/19 08:34) Nausea steroids Adverse Reaction (Uncoded 08/11/19 08:34) nausea/ears ringing Primary Care Physician: Care Physician,No Primary [Primary Care Provider] - Prior records reviewed: Yes Surgical History: noncontributory Smoking Status: Never smoker - Family History Maternal Family History: Reports: No pertinent history - no CAD, DM, CA Paternal Family History: Reports: No pertinent history - no CAD, DM, CA Review of Systems General: Denies: Chills, Fever Eyes: Denies: Visual changes - bilaterally ENT: Denies: Bilateral ear pain, Sore throat Cardiovascular: Denies: Chest pain Respiratory: Reports: Cough, Sputum. Denies: Dyspnea Gastrointestinal: Denies: Abdominal pain, Nausea, Vomiting, Diarrhea Genitourinary: Denies: Dysuria Musculoskeletal: Denies: Extremity Pain Skin: Denies: Rash Neurological: Denies: Headache Allergy: Denies: Uticaria Physical Exam Vital Signs/Narrative: Vital Signs Temp Pulse Resp BP Pulse Ox 08/11/19 08:31 98 F 128 H 16 126/87 H 99 Inital Vital Signs reviewed: Yes General: Well nourished, Well developed Head: Normocephalic ENT: Dry mucous membranes, - - Mild thrush noted to tongue. Neck: Negative for: Supple Cardiovascular: Tachycardia Respiratory: No distress, CTA bilaterally Abdomen: Soft, Nontender, Hypoactive bowel sounds Extremities: Nontender Skin: Normal color, No rash Neurological: Alert, Oriented x3 Psychological: Normal affect Diagnostic/Tx/Re-eval Chest X-Ray - ED: 2 View, - - Patient has chronic hyperinflation. No acute infiltrate. Impressions Chest X-Ray 08/11/19 09:22 IMPRESSION: New focal patchy airspace opacities or effusions COPD/emphysema Electronically Signed: Govind Thomas DO at 9:50 EST Tel , Service support , 08/11/19 09:22 Chest PA and Lateral [RAD] Stat Laboratory Results 08/11/19 08/11/19 09:10 09:10 WBC 14.8 H RBC 5.64 H Hgb 16.2 H Hct 50.5 H MCV 89.5 MCH 28.7 MCHC 32.1 RDW Std Deviation 43.7 RDW Coeff of Maribell 13.5 Plt Count 418 MPV 9.4 Immature Gran % (Auto) 1.200 H Neut % (Auto) 79.7 H Lymph % (Auto) 10.9 L [place] % (Auto) 7.2 Eos % (Auto) 0.3 Baso % (Auto) 0.7 Absolute Neuts (auto) 11.8 H Absolute Lymphs (auto) 1.61 Nucleated RBC % 0 Sodium 138 Potassium 3.8 Chloride 93 L Carbon Dioxide 31.0 Anion Gap 14 BUN 16 Creatinine 1.19 H Estim Creat Clear Calc 39.33 Est GFR (MDRD) Af Amer 59 L Est GFR (MDRD) Non-Af 48 L BUN/Creatinine Ratio 13.4 Glucose 162 H Calcium 9.7 - Medical Decision Making His labs reveal mild dehydration. Her sodium level is improved. She is given a liter of IV fluids here. On repeat evaluation I advised her that I would write her for some nystatin swish and swallow. She now tells me that she is not keeping anything down and has nowhere to go. She states her mother has A lzheimer's and told her this morning she does not know who she is and told her not to come back. I will have social work speak with the patient. Patient met with social work. She states that she has money to stay at a local hotel for the next several days. She is alert and oriented and denies any suicidal homicidal thoughts. Patient be given a prescription for nystatin. APS is already been contacted about the patient and her mother. ED Disposition - Plan for ED Patient: Disposition: Home or Assisted Living Diagnosis: Thrush, Bronchitis Instructions: BRONCHITIS, No Antibiotic (Adult), Oral Thrush Prescriptions: Nystatin 500,000U/5ML [Mycostatin] 2 ml PO 4X/DAY #100 ml Referrals: Ankush Seaman [[facility]] - 1-2 Weeks
[2019-08-11] MEDS: 0.9% Normal Saline 1,000 ML 1000 ML IV (09:13)
[2019-08-11 09:21] LABS: Absolute Lymphocyte Count 1.61 X10^3/uL (0.83-4.51); Absolute Neutrophil Count 11.8 X10^3/uL (2.0-7.7); Basophil# 0.11 X10^3/uL; Basophil% 0.7 % (0-1); Eosinophil# 0.05 X10^3/uL; Eosinophils% 0.3 % (0-5); Hematocrit 50.5 % (37-47); Hemoglobin 16.2 g/dL (12.0-15.0); Lymphocyte # 1.61 X10^3/ul (4.0); Lymphocyte % 10.9 % (19-41); Mean Corp Hgb Conc 32.1 g/dL (32-36); Mean Corpuscular Hgb 28.7 pg (27.0-32.0); Mean Corpuscular Volume 89.5 fL (81-99); Mean Platelet Vol. 9.4 fl (6.2-12.0); Monocyte# 1.07 X10^3/uL; Monocyte% 7.2 % (0-10); NRBC Flagged by Analyzer 0 % (0-5); Neutrophil # 11.75 X10^3/uL (2.7-7.7); Neutrophil % 79.7 % (47-70); Platelet Count 418 K/mm3 (150-450); RBC Distribution Width CV 13.5 % (11.6-14.6); RBC Distribution Width SD 43.7 fl (35.1-43.9); Red Blood Count 5.64 M/mm3 (4.2-5.4); White Blood Count 14.8 K/mm3 (4.4-11.0)
--- NOTE | 2019-08-11 09:22 | RAD_ITS ---
STUDY: X-RAY CHEST REASON FOR EXAM: Female, 63 years old. COUGH AND WEAK. TECHNIQUE: PA and lateral views of the chest. COMPARISON: None. FINDINGS: Cardiac silhouette unremarkable. Pulmonary vascularity unremarkable. Aorta unremarkable. No focal patchy airspace opacities. No pleural effusions. COPD/emphysema. Upper abdomen unremarkable. Osseous structures intact with minimal degenerative features. No pneumothorax. RAD/Chest PA and Lateral IMPRESSION: New focal patchy airspace opacities or effusions COPD/emphysema Electronically Signed: Govind Thomas DO at 9:50 EST Tel , Service support ,
[2019-08-11 09:34] VITALS: BP 132/70; PULSE 97; RESP 16; TEMP 36.7; O2SAT 97
[2019-08-11 09:42] LABS: Anion Gap 14 (5-15); BUN 16 mg/dL (7-18); BUN/Creat Ratio 13.4 RATIO (10-20); Calcium,Total 9.7 mg/dL (8.5-10.1); Chloride 93 mmol/L (98-107); Creatinine, Serum 1.19 mg/dL (0.55-1.02); EST Glomerular Filtration Rate 48 mL/min (>60); Est Glom Filt Rate - Afr Amer 59 mL/min (>60); Estimated Creatinine Clearance 39.33 ml/min; Glucose 162 mg/dL (74-106); Potassium 3.8 mmol/L (3.5-5.1); Sodium Level 138 mmol/L (136-145)
[2019-08-11 10:00] VITALS: BP 118/70; PULSE 105; RESP 16; TEMP 36.6; O2SAT 98
--- NOTE | 2019-08-11 10:50 | CM.ED ---
SOCIAL WORK INFORMANT: DR. LIU REASON FOR REFERRAL: RESOURCES/D/C PLANNING REVIEWED NOTES FROM LAST ADMISSION ON 07/26/19. MET WITH PATIENT IN ROOM. INTRODUCED ROLE AND REASON FOR REFERRAL. PATIENT ALERT AND ORIENTED. DISCUSSED SELF-PAY STATUS AND PATIENT'S LAST ADMISSION. PATIENT MAINOR STILL HAS ALL RESOURCES PROVIDED FROM THAT VISIT BY TAX EXPERT. PATIENT HAD A TAXI BRING HER TO THE HOSPITAL SHE HAS NOT BEEN FEELING WELL. PATIENT REPORTS IS UNABLE TO KEEP LIQUIDS DOWN D/T THRUSH. PATIENT DENIES ANY HISTORY OF MENTAL HEALTH OR SUBSTANCE ABUSE. PATIENT WAS STAYING WITH MOTHER WHO HAS DEMENTIA AND MOTHER TOLD HER NOT TO COME BACK. (FROM NOTES ON 07/26/19 REFERRAL WAS MADE TO [facility] D/T CONCERNS.) PATIENT DENIES ANY CONCERNS AT THIS TIME FOR HER MOTHER HER NEIGHBOR, LINDA CHECKS IN ON HER DAILY. PATIENT REQUESTING THIS WORKER ASSIST HER IN CONTACTING HER BANK TO CHECK BALANCE SHE PLANS TO GO TO THE [facility] TO STAY FOR A FEW NIGHTS UNTIL I GET MY STRENGTH BACK. CALL FACILITATED. PATIENT HAS THE RESOURCES TO PAY FOR TAXI AND A FEW NIGHTS AT THE [facility]. PATIENT IS ON WAIT LIST WITH JOHANNA IN [facility]. PATIENT DENIES ANY FURTHER NEEDS FROM THIS WORKER. DISCUSSED WITH DR. LIU. PLAN FOR D/C HOME. PATIENT DENIES ANY NEEDS. Urban PAUL, MEDICAL SUPERVISOR, LIVING ADVISOR.
[2019-08-11 11:17] VITALS: BP 132/70; PULSE 103; RESP 16; O2SAT 97
== END 2019-08-11 11:17 | disposition home or self-care (01) ==
PROVIDERS: Emergency Provider Emergency Medicine
DX: B37.9 Candidiasis, unspecified (principal); J40 Bronchitis, not specified as acute or chronic
CPT/HCPCS: 71046; 80048; 85025; 96360; 99284; J7030; A4216

== ENCOUNTER 2019-10-04 07:25 | Inpatient (IN) | payer OTHER, SELFPAY ==
[2019-10-04] VITALS (10 sets, daily range): BP systolic 93–136; BP diastolic 65–98; PULSE 69–101; RESP 16–23; TEMP 36.2–36.7; O2SAT 94–100; BMI 18.3; BMI 18.9; BMI 19.0
--- NOTE | 2019-10-04 07:44 | RAD_ITS ---
EXAM DESCRIPTION: Portable chest CLINICAL HISTORY: 63 years Female, WEAKNESS WEAKNESS COMPARISON: None FINDINGS: The thorax is intact. The heart and mediastinum appear to be within normal limits. The lungs appear to be well areated without evidence of pneumonic consolidation or pleural effusion. RAD/Chest 1 View (Portable) IMPRESSION: Normal portable chest Electronically Signed: Dusty Odonnell, at 8:04 EST Tel , Service support ,
--- NOTE | 2019-10-04 07:46 | EKG12_ITS ---
Test Reason : WEAKNESS Blood Pressure : / mmHG Vent. Rate : 107 BPM Atrial Rate : 107 BPM P-R Int : 112 ms QRS Dur : 068 ms QT Int : 350 ms P-R-T Axes : 083 075 069 degrees QTc Int : 467 ms Sinus tachycardia Right atrial enlargement Pulmonary disease pattern Nonspecific ST abnormality Abnormal ECG Confirmed by JULES WEBSTER, IGNACIA ([id number]), deputy editor in chief KENA GUARDADO ([id number]) on 10/09/2019 8:41:30 AM Referred By: ROSSI Confirmed By:EDEN VICENTE MD
[2019-10-04] MEDS: 0.9% Normal Saline 1,000 ML 1000 ML IV (07:59)
[2019-10-04] MEDS: Ondansetron 4 MG/2 ML Vial IV (08:00)
--- NOTE | 2019-10-04 08:03 | ED.DCSUM_ITS ---
History of Present Illness Chief Complaint: Weakness Informant: Patient Onset: Weeks Context: Gradual Onset Timing: Continuous Narrative: Patient is a 63-year-old female with history of hypernatremia secondary to dehydration about 2 months ago presenting with generalized weakness. Patient states she has had a decreased appetite, dry heaves and nausea for the past 2 weeks. She is not had associated diarrhea. Does not have abdominal pain. States she has only been able to eat for the past 2 weeks. Patient states she has been able to eat some chicken noodle soup but then about an hour later her stomach starts to turn sour. She has been drinking propel, green tea and apple juice. Patient notes she did have diarrhea at the beginning of this illness but that resolved. She states prior to that she did have the flu but that got better. Patient denies any other complaint such as chest pain, shortness of breath or difficulty breathing. She denies any urinary symptoms. Past Medical History - Allergies and Home Meds Allergies/Adverse Reactions: Allergies aspirin Allergy (Verified 10/04/19 07:25) facial swelling as a child formaldehyde Allergy (Verified 10/04/19 07:25) Shortness of breath procaine [From Novocain] Allergy (Verified 10/04/19 07:25) Angioedema chocolate flavor Adverse Reaction (Verified 10/04/19 07:25) Diarrhea cinnamon Adverse Reaction (Verified 10/04/19 07:25) Upset Stomach cobalt Adverse Reaction (Verified 10/04/19 07:25) Nausea/Vom/Diarrhea yaa Adverse Reaction (Verified 10/04/19 07:25) Upset Stomach perfume Adverse Reaction (Verified 10/04/19 07:25) difficulty breathing pseudoephedrine [From Sudafed] Adverse Reaction (Verified 10/04/19 07:25) elevated heart rate ANTIBIOTICS Adverse Reaction (Uncoded 10/04/19 07:25) Nausea steroids Adverse Reaction (Uncoded 10/04/19 07:25) nausea/ears ringing Primary Care Physician: Care Physician,No Primary [Primary Care Provider] - Past Medical History: None Surgical History: noncontributory Smoking Status: Never smoker Alcohol: None Drugs: None - Family History Maternal Family History: Reports: No pertinent history - no CAD, DM, CA Paternal Family History: Reports: No pertinent history - no CAD, DM, CA Review of Systems General: Reports: Malaise. Denies: Chills, Fever, Sweats Eyes: Denies: Visual changes - bilaterally, Diplopia ENT: Denies: Rhinorrhea, Sore throat Cardiovascular: Denies: Chest pain, Palpitations Respiratory: Denies: Dyspnea, Cough, Dyspnea on exertion Gastrointestinal: Reports: Nausea, Vomiting. Denies: Abdominal pain, Diarrhea, Melena, Hematochezia Genitourinary: Denies: Dysuria, Hematuria, Frequency Musculoskeletal: Denies: Back pain, Extremity Pain Skin: Denies: Rash, Wounds Neurological: Denies: Headache, Weakness, Numbness Physical Exam Vital Signs/Narrative: Vital Signs Temp Pulse Resp BP Pulse Ox 10/04/19 07:32 100 10/04/19 07:26 97.2 F L 69 18 100/67 Inital Vital Signs reviewed: Yes General: Well nourished, Well developed, No Acute Distress Head: Normocephalic, Atraumatic Eyes: Perrl, EOMI ENT: No rhinorrhea, Dry mucous membranes Neck: Supple, Nontender Cardiovascular: Regular rhythm, No murmurs, Tachycardia Respiratory: No distress, CTA bilaterally, Chest nontender Abdomen: Soft, Nontender, Nondistended, Normal bowel sounds Back: Nontender, Normal Inspection Extremities: Nontender, No edema Skin: Normal color, No rash Neurological: Alert, Oriented x3, Cranial nerves II-XII grossly intact, Normal Strength, Normal Sensation Psychological: Normal affect, Normal Mood Diagnostic/Tx/Re-eval Chest X-Ray - ED: 2 View, Read by ED Physician, Read by Radiologist, No Acute Disease Clinical Impression(s) from Imaging Studies Chest X-Ray 10/04/19 07:44 IMPRESSION: Normal portable chest Electronically Signed: Dusty Odonnell, at 8:04 EST Tel , Service support , Laboratory Data 10/04/19 10/04/19 10/04/19 09:15 09:15 09:15 WBC 14.6 H RBC 5.54 H Hgb 16.1 H Hct 51.7 H MCV 93.3 MCH 29.1 MCHC 31.1 L RDW Std Deviation 52.9 H RDW Coeff of Maribell 15.1 H Plt Count 278 MPV 11.1 Immature Gran % (Auto) 1.100 H Neut % (Auto) 80.9 H Lymph % (Auto) 9.8 L [place] % (Auto) 7.6 Eos % (Auto) 0.0 Baso % (Auto) 0.6 Absolute Neuts (auto) 11.8 H Absolute Lymphs (auto) 1.42 Nucleated RBC % 0 Sodium 154 H Potassium 3.8 Chloride 117 H Carbon Dioxide 27.0 Anion Gap 10 BUN 92 H Creatinine 1.97 H Estim Creat Clear Calc 22.72 Est GFR (MDRD) Af Amer 33 L Est GFR (MDRD) Non-Af 27 L BUN/Creatinine Ratio 46.7 H Glucose 130 H Lactic Acid 2.9 H* Calcium 8.8 Total Bilirubin 0.70 AST 18 ALT 40 Alkaline Phosphatase 88 Troponin I < 0.015 Total Protein 8.1 Albumin 3.6 Globulin 4.5 H Albumin/Globulin Ratio 0.8 L Lipase 372 Urine Color Urine Clarity Urine pH Ur Specific [place] Urine Protein Urine Glucose (UA) Urine Ketones Urine Occult Blood Urine Nitrite Urine Bilirubin Urine Urobilinogen Ur Leukocyte Esterase Urine RBC Urine WBC Ur Squamous Epith Cells Urine Bacteria Hyaline Casts Fine Granular Casts Urine Mucus 10/04/19 09:50 WBC RBC Hgb Hct MCV MCH MCHC RDW Std Deviation RDW Coeff of Maribell Plt Count MPV Immature Gran % (Auto) Neut % (Auto) Lymph % (Auto) [place] % (Auto) Eos % (Auto) Baso % (Auto) Absolute Neuts (auto) Absolute Lymphs (auto) Nucleated RBC % Sodium Potassium Chloride Carbon Dioxide Anion Gap BUN Creatinine Estim Creat Clear Calc Est GFR (MDRD) Af Amer Est GFR (MDRD) Non-Af BUN/Creatinine Ratio Glucose Lactic Acid Calcium Total Bilirubin AST ALT Alkaline Phosphatase Troponin I Total Protein Albumin Globulin Albumin/Globulin Ratio Lipase Urine Color Yellow Urine Clarity Sl. Cloudy Urine pH 5.0 Ur Specific [place] 1.025 Urine Protein 30 H Urine Glucose (UA) Normal Urine Ketones 15 H Urine Occult Blood 25 H Urine Nitrite Negative Urine Bilirubin Negative Urine Urobilinogen 1 H Ur Leukocyte Esterase 100 H Urine RBC 0 SEEN Urine WBC 0-5 SEEN Ur Squamous Epith Cells 0-5 SEEN Urine Bacteria 2+ Hyaline Casts 10-25 SEEN Fine Granular Casts 0-5 SEEN Urine Mucus 1+ - Rhythm Strip Rhythm Strip: Sinus Tach Rate: 107 Ectopy: None - EKG Initial EKG Interpretation: Sinus Tachycardia, - - Is tachycardia at a rate of 107 Normal intervals Normal axis Nonspecific ST abnormalities Compared to EKG KG on 07/25/2019 patient is now tachycardic - Medical Decision Making Patient is evaluated for what she thought was gastroenteritis. She is now only been able to eat for the last 2 weeks. Patient has a significantly elevated creatinine, almost double her baseline. In addition she is hyponatremic again. Her lactate is elevated. Does not have an obvious source of infection. I suspect this is all from dehydration. Patient is given a liter of fluids in the emergency room with normal saline as well as Zofran. She started on maintenance fluid at 100 cc an hour. Patient will be admitted for further electrolyte monitoring. Patient's abdomen is soft and nontender. I have a low suspicion for small bowel obstruction at this time. I did discuss with admitting hospitalist, who will order CT of the abdomen pelvis but this can be performed on the floor. He will consult surgery on the floor as well for further recommendations. Patient is agreeable this plan. She is stable for [facility] at time of disposition. ED Disposition - Plan for ED Patient: Disposition: Acute Care Hospital [facility] Diagnosis: Acute kidney injury, Leukocytosis, Hypernatremia Referrals: Care Physician,No Primary [Primary Care Provider] -
[2019-10-04 09:23] LABS: Absolute Lymphocyte Count 1.42 X10^3/uL (0.83-4.51); Absolute Neutrophil Count 11.8 X10^3/uL (2.0-7.7); Basophil# 0.09 X10^3/uL; Basophil% 0.6 % (0-1); Hematocrit 51.7 % (37-47); Hemoglobin 16.1 g/dL (12.0-15.0); Lymphocyte # 1.42 X10^3/ul (4.0); Lymphocyte % 9.8 % (19-41); Mean Corp Hgb Conc 31.1 g/dL (32-36); Mean Corpuscular Hgb 29.1 pg (27.0-32.0); Mean Corpuscular Volume 93.3 fL (81-99); Mean Platelet Vol. 11.1 fl (6.2-12.0); Monocyte# 1.11 X10^3/uL; Monocyte% 7.6 % (0-10); NRBC Flagged by Analyzer 0 % (0-5); Neutrophil # 11.78 X10^3/uL (2.7-7.7); Neutrophil % 80.9 % (47-70); Platelet Count 278 K/mm3 (150-450); RBC Distribution Width CV 15.1 % (11.6-14.6); RBC Distribution Width SD 52.9 fl (35.1-43.9); Red Blood Count 5.54 M/mm3 (4.2-5.4); White Blood Count 14.6 K/mm3 (4.4-11.0)
[2019-10-04 09:40] LABS: ALB/GLOB Ratio 0.8 RATIO (0.9-2.4); AST(SGOT) 18 U/L (15-37); Alanine Aminotransfer ALT/SGPT 40 U/L (13-56); Albumin, Serum 3.6 g/dL (3.2-5.0); Alkaline Phosphatase 88 U/L (45-117); Anion Gap 10 (5-15); BUN 92 mg/dL (7-18); BUN/Creat Ratio 46.7 RATIO (10-20); Calcium,Total 8.8 mg/dL (8.5-10.1); Chloride 117 mmol/L (98-107); Creatinine, Serum 1.97 mg/dL (0.55-1.02); EST Glomerular Filtration Rate 27 mL/min (>60); Est Glom Filt Rate - Afr Amer 33 mL/min (>60); Estimated Creatinine Clearance 22.72 ml/min; Globulin 4.5 g/dL (2.2-4.2); Glucose 130 mg/dL (74-106); Lipase 372 U/L (73-393); Potassium 3.8 mmol/L (3.5-5.1); Protein, Total 8.1 g/dL (6.4-8.2); Sodium Level 154 mmol/L (136-145)
[2019-10-04 09:58] LABS: Red Blood Cells-Urine 0 SEEN /hpf (0-5)
[2019-10-04 09:59] LABS: Color, Urine Yellow (Yellow); Glucose, Dipstick Normal (Normal); Ketone-Dipstick 15 mg/dl (Negative); Leukocyte Esterase-Dipstick 100 /ul (Negative); Nitrite-Dipstick Negative (Negative); Occult Blood-Urine 25 /ul (Negative); Protein-Dipstick 30 mg/dl (Negative); Specific Gravity, Urine 1.025 (1.002-1.030); Urine Bilirubin Dipstick Negative (Negative); Urine Clarity Sl. Cloudy (Clear); Urine Urobilinogen 1 mg/dl (Normal)
[2019-10-04 10:07] LABS: Bacteria 2+ /hpf (None Seen); Fine Granular Cast- Urine 0-5 SEEN /lpf (0-5); Hyaline Cast 10-25 SEEN /lpf (0-5); Mucous, Urine 1+ /hpf (<or=2+); Squamous Epithelial Cells - UA 0-5 SEEN /hpf (5-10); White Blood Cells 0-5 SEEN /hpf (0-5)
[2019-10-04 10:19] LABS: Lactic Acid 2.9 mmol/L (0.4-1.9)
--- NOTE | 2019-10-04 10:42 | HP.PCM_ITS ---
History of Present Illness Date of Admission: 10/04/19 Chief Complaint: Nausea and vomiting about 1 week ago. Patient is very dehydrated The patient is a 63 year old F with history of recent admission in July 2019 for acute hyponatremia came to ER with, nausea, vomiting and not able to keep anything down. Patient further said she had vomited once about 1 week ago. She cannot eat or drink because of bad quality of water intake in [place]. Patient denies abdominal pain. Denies lower tract symptoms including burning micturition, increased frequency or urgency. Last time, she signed AMA after 2 days of admission. As per the ER physician, she had intractable nausea and vomiting for 2 weeks whi ch she states wrong. She does not have vomiting after 1 hour of meal or oral intake as stated by ER physician. ER basic labs shows leukocytosis 14 point 6K, H&H 16.1/51, platelet count 278. Electrolytes shows hyponatremia 154, hyperchloremia, BUN/creatinine 92/1.97. Lactic acid 2.9 but she does not have symptoms are clinical features of infection or sepsis; mostly from severe dehydration. LFT shows albumin 3.6, globulin 4.5, A/G ratio 0.8. Lipase normal. Past Medical History Allergies aspirin Allergy (Verified 10/04/19 07:25) facial swelling as a child formaldehyde Allergy (Verified 10/04/19 07:25) Shortness of breath procaine [From Novocain] Allergy (Verified 10/04/19 07:25) Angioedema chocolate flavor Adverse Reaction (Verified 10/04/19 07:25) Diarrhea cinnamon Adverse Reaction (Verified 10/04/19 07:25) Upset Stomach cobalt Adverse Reaction (Verified 10/04/19 07:25) Nausea/Vom/Diarrhea yaa Adverse Reaction (Verified 10/04/19 07:25) Upset Stomach perfume Adverse Reaction (Verified 10/04/19 07:25) difficulty breathing pseudoephedrine [From Sudafed] Adverse Reaction (Verified 10/04/19 07:25) elevated heart rate ANTIBIOTICS Adverse Reaction (Uncoded 10/04/19 07:25) Nausea steroids Adverse Reaction (Uncoded 10/04/19 07:25) nausea/ears ringing Home Medications: Ambulatory Orders Medication Instructions Recorded NK 10/04/19 Surgical History: noncontributory 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 Denies: Abdominal Pain, Hematemesis, Hematochezia, Melena Genitourinary: Denies: Dysuria, Frequency, Hematuria, Incontinence, Nocturia, Retention, Urgency Musculoskeletal: Denies: Joint Pain, Joint Tenderness Skin: Denies: Rash, Wounds Neurological: Denies: Numbness, Tingling, Focal weakness Psychiatric: Denies: Anxiety, Depression, Homicidal Ideations, Suicidal Ideations Hematologic/ Lymphatic: Denies: Easy Bruising, Easy Bleeding VTE Information - Inpt Only VTE Present on Admission: No VTE Mechan Device Prophylaxis: None VTE Pharm Prophylaxis ordered?: Yes Reason prophylaxis not ordered:: Refusal of Tx by Patient - Patient refused for Lovenox, or mechanical device SCD/FREDDY hose Patient Problems: Active and Suspected Problems Leukocytosis (Acute) Acute kidney injury (Acute) Hypernatremia (Acute) - Physical Exam Vitals/I&O's: Vital Signs Temp Pulse Resp BP Pulse Ox 97.2 F L 87 23 H 136/98 H 97 10/04/19 07:26 10/04/19 09:45 10/04/19 09:45 10/04/19 09:45 10/04/19 09:45 Weight: 110 lb Body Mass Index (BMI) 18.3 Intake and Output for Last 24 Hours 10/02/19 10/03/19 10/04/19 23:59 23:59 23:59 Intake Total 1000 / 1000 Balance 1000 / 1000 General: Alert, Oriented x3, Cooperative HEENT: Atraumatic, PERRLA, EOMI, Normocephalic Oral: No Gingival or Mucosal Lesions/ Ulcerations, Dry Mucosa, - - Missing teeth Neck: Supple, No JVD, Negative Carotid Bruits Lungs: Clear to auscultation, Normal air movement, No rhonchi, No wheeze, No rales Cardiovascular: Regular rate, Regular Rhythm, Normal S1, Normal S2, No murmurs Abdomen: Bowel Sounds Present, Soft, Non Tender, Non-Distended Extremities: No edema, Capillary Refill Less than 3 Seconds Skin: No rashes, No breakdown Musculoskeletal: No Tenderness to Palpation of Joints or Extremities, Arthritic Changes Neurological: Cranial nerves II-XII grossly intact, Deep Tendon Reflexes 2+/4 and Symmetrical, Neuro grossly intact, Motor Exam 5/5 strength throughout Psych/Mental Status: Normal Affect, Appropriate Laboratory Results 10/04/19 09:15: WBC 14.6 H, RBC 5.54 H, Hgb 16.1 H, Hct 51.7 H, MCV 93.3, MCH 29.1, MCHC 31.1 L, RDW Std Deviation 52.9 H, RDW Coeff of Maribell 15.1 H, Plt Count 278, MPV 11.1, Immature Gran % (Auto) 1.100 H, Neut % (Auto) 80.9 H, Lymph % (Auto) 9.8 L, [place] % (Auto) 7.6, Eos % (Auto) 0.0, Baso % (Auto) 0.6, Absolute Neuts (auto) 11.8 H, Absolute Lymphs (auto) 1.42, Nucleated RBC % 0 10/04/19 09:15: Sodium 154 H, Potassium 3.8, Chloride 117 H, Carbon Dioxide 27.0, Anion Gap 10, BUN 92 H, Creatinine 1.97 H, Estim Creat Clear Calc 22.72, Est GFR (MDRD) Af Amer 33 L, Est GFR (MDRD) Non-Af 27 L, BUN/Creatinine Ratio 46.7 H, Glucose 130 H, Calcium 8.8, Total Bilirubin 0.70, AST 18, ALT 40, Alkaline Phosphatase 88, Troponin I < 0.015, Total Protein 8.1, Albumin 3.6, Globulin 4.5 H, Albumin/Globulin Ratio 0.8 L, Lipase 372 10/04/19 09:15: Lactic Acid 2.9 H* 10/04/19 09:50: Urine Color Yellow, Urine Clarity Sl. Cloudy, Urine pH 5.0, Ur Specific [place] 1.025, Urine Protein 30 H, Urine Glucose (UA) Normal, Urine Ketones 15 H, Urine Occult Blood 25 H, Urine Nitrite Negative, Urine Bilirubin Negative, Urine Urobilinogen 1 H, Ur Leukocyte Esterase 100 H, Urine RBC 0 SEEN, Urine WBC 0-5 SEEN, Ur Squamous Epith Cells 0-5 SEEN, Urine Bacteria 2+, Hyaline Casts 10-25 SEEN, Fine Granular Casts 0-5 SEEN, Urine Mucus 1+ Current Medications Sodium Chloride () 1,000 mls @ 100 mls/hr IV .Q10H [facility] Assessment/Plan All Active Problems Hypernatremia (Resolved) Leukocytosis (Acute) Urinary tract infection (Resolved) Acute kidney injury (Acute) Gastroenteritis (Acute) Hypernatremia (Acute) The patient is a 63 year old F with history of recent admission in July 2019 for acute hyponatremia came to ER with, nausea, vomiting and not able to keep anything down. ER basic labs shows leukocytosis 14 point 6K, H&H 16.1/51, platelet count 278. Electrolytes shows hyponatremia 154, hyperchloremia, BUN/creatinine 92/1.97. Lactic acid 2.9 but she does not have symptoms are clinical features of infection or sepsis; mostly from severe dehydration. LFT shows albumin 3.6, globulin 4.5, A/G ratio 0.8. Lipase normal. 1. Acute hypernatremia secondary to severe dehydration most probably from poor oral intake: Patient is being admitted on [facility] floor. She had 2 L of normal saline bolus in ER. Continue baseline normal saline IV fluid normal saline at 100 mils per hour. Repeat BMP in the evening and morning 2. Acute kidney injury mainly prerenal from dehydration and lactic acid is secondary to poor perfusion/dehydration: IV fluid normal saline. Monitor intake and output. Follow-up BMP 3. Vomiting and nausea probably from psychogenic/bad water quality: Patient does not want abdominal x-ray or CT scan because of the cost as she does not have insurance. Manage conservatively. Patient seen by surgeon Dr. Ariel Montana and does not seem surgical cause or GI obstruction for nausea or vomiting. Chest x-ray does not show gas in her diaphragm but colonic gas. 4. Bacteria in UA probably asymptomatic bacteriuria: Patient does not have lower urinary tract symptoms therefore no UTI. DVT prophylaxis: Moderate risk, Lovenox 40 mils subcu daily was ordered but patient refused for pharmacological or mechanical prophylaxis. Laboratory Results 10/04/19 09:15: WBC 14.6 H, RBC 5.54 H, Hgb 16.1 H, Hct 51.7 H, MCV 93.3, MCH 29.1, MCHC 31.1 L, RDW Std Deviation 52.9 H, RDW Coeff of Maribell 15.1 H, Plt Count 278, MPV 11.1, Immature Gran % (Auto) 1.100 H, Neut % (Auto) 80.9 H, Lymph % (Auto) 9.8 L, [place] % (Auto) 7.6, Eos % (Auto) 0.0, Baso % (Auto) 0.6, Absolute Neuts (auto) 11.8 H, Absolute Lymphs (auto) 1.42, Nucleated RBC % 0 10/04/19 09:15: Sodium 154 H, Potassium 3.8, Chloride 117 H, Carbon Dioxide 27.0, Anion Gap 10, BUN 92 H, Creatinine 1.97 H, Estim Creat Clear Calc 22.72, Est GFR (MDRD) Af Amer 33 L, Est GFR (MDRD) Non-Af 27 L, BUN/Creatinine Ratio 46.7 H, Glucose 130 H, Calcium 8.8, Total Bilirubin 0.70, AST 18, ALT 40, Alkaline Phosphatase 88, Troponin I < 0.015, Total Protein 8.1, Albumin 3.6, Globulin 4.5 H, Albumin/Globulin Ratio 0.8 L, Lipase 372 10/04/19 09:15: Lactic Acid 2.9 H* 10/04/19 09:15: Magnesium Pending 10/04/19 09:50: Urine Color Yellow, Urine Clarity Sl. Cloudy, Urine pH 5.0, Ur Specific [place] 1.025, Urine Protein 30 H, Urine Glucose (UA) Normal, Urine Ketones 15 H, Urine Occult Blood 25 H, Urine Nitrite Negative, Urine Bilirubin Negative, Urine Urobilinogen 1 H, Ur Leukocyte Esterase 100 H, Urine RBC 0 SEEN, Urine WBC 0-5 SEEN, Ur Squamous Epith Cells 0-5 SEEN, Urine Bacteria 2+, Hyaline Casts 10-25 SEEN, Fine Granular Casts 0-5 SEEN, Urine Mucus 1+ 10/04/19 13:49: Lactic Acid Cancelled Clinical Impression(s) from Imaging Studies Chest X-Ray 10/04/19 07:44 IMPRESSION: Normal portable chest Code Visit Inpatient E&M: 01846 Init Hosp L3
--- NOTE | 2019-10-04 10:42 | NURSING ---
DR ZURITA FOR DR RICHEY
--- NOTE | 2019-10-04 12:06 | NURSING ---
MED SURG YUDITH DEHYDRATION, JAGDISH, HYPERNATREMIA
[2019-10-04] MEDS: 0.9% Normal Saline 1,000 ML 999 ML IV (12:12)
[2019-10-04 13:19] LABS: Reflex Lactate? Y
[2019-10-04] MEDS: 0.9% Normal Saline 1,000 ML 100 ML IV ×2 (13:26→22:55)
--- NOTE | 2019-10-04 14:15 | CON.PCM_ITS ---
Problem List (1) Nausea Status: Acute (2) Vomiting bile Status: Acute Reason for Consult Date of Consultation: 10/04/19 Reason for Consultation: Nausea and vomiting History of Present Illness: The patient is a 63 year old F who presented with generalized weakness, dehydration and lack of appetite. Patient notes her symptoms have progressively become worse over the last 2 weeks. She notes being a vegetarian and not consuming much protein. She notes she had chicken broth which she notes has a lot of MSG within it and she noted after than she had some nausea. Patient also notes having intermittent dry heaves. She notes by consuming water the nausea goes away. She notes the last time she had dry heaves was 3 days ago. She notes the nausea occurs once a day. Patient lives in a hotel. She notes the hotel is run down and houses homeless and drug addicts. She notes she became homeless after her divorce a few years ago. She notes up until 4 months ago [address] Patient notes the hotel she is living at now has mold, black ice and notes a copper taste in the water. Patient notes she is able to occasionally stay at the [facility] where her symptoms improve and she feels over all better. Due to her financial situation she is not able to stay there always. She denies change in bowel habits. She has normal solid bowel movements. She denies melena, bright red blood per rectum. She denies abdominal pain. She denies reflux and heartburn symptoms. Patient notes in June she had a trip to [place] with some girlfriends. they ate at a salad bar and had food poisoning following the outing. She noted being dehydrated in July and was hospitalized here. She was also noted to have a UTI. She left [facility] due to not being able to afford all of the tests that were wanting to be run. She notes she went to the library in August where she noted people were sick and she developed the flu. She had completely recovered and then developed her current symptoms. She notes she had a an upper and colonoscopy at [facility] approximately 3 years ago. She notes she had hemorrhoids otherwise no polyps. Her upper scope was normal per patient. Past Medical History Allergies aspirin Allergy (Verified 10/04/19 07:25) facial swelling as a child formaldehyde Allergy (Verified 10/04/19 07:25) Shortness of breath procaine [From Novocain] Allergy (Verified 10/04/19 07:25) Angioedema chocolate flavor Adverse Reaction (Verified 10/04/19 07:25) Diarrhea cinnamon Adverse Reaction (Verified 10/04/19 07:25) Upset Stomach cobalt Adverse Reaction (Verified 10/04/19 07:25) Nausea/Vom/Diarrhea yaa Adverse Reaction (Verified 10/04/19 07:25) Upset Stomach perfume Adverse Reaction (Verified 10/04/19 07:25) difficulty breathing pseudoephedrine [From Sudafed] Adverse Reaction (Verified 10/04/19 07:25) elevated heart rate ANTIBIOTICS Adverse Reaction (Uncoded 10/04/19 07:25) Nausea steroids Adverse Reaction (Uncoded 10/04/19 07:25) nausea/ears ringing Home Medications: Ambulatory Orders Medication Instructions Recorded NK 10/04/19 Surgical History: noncontributory 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 Denies: Fever, Weight Change HEENT: Denies: Head Aches, Sinus Congestion, Sinus Drainage Cardiovascular: Denies: Chest Pain, Palpitations Respiratory: Denies: Cough, Shortness of breath at rest, Sputum production Gastrointestinal: Reports: Nausea, Vomiting - Dry heaves Genitourinary: Denies: Dysuria Musculoskeletal: Denies: Joint Pain, Joint Tenderness Skin: Denies: Rash, Wounds Neurological: Denies: Numbness, Tingling, Focal weakness Psychiatric: Denies: Anxiety, Depression, Homicidal Ideations, Suicidal Ideations Hematologic/ Lymphatic: Denies: Easy Bruising, Easy Bleeding Patient Problems: Active and Suspected Problems Leukocytosis (Acute) Acute kidney injury (Acute) Hypernatremia (Acute) Nausea (Acute) Vomiting bile (Acute) - Physical Exam Vitals/I&O's: Vital Signs Temp Pulse Resp BP Pulse Ox 98.0 F 99 18 127/84 H 98 10/04/19 13:47 10/04/19 13:53 10/04/19 13:47 10/04/19 13:47 10/04/19 13:47 Oxygen Delivery Method Room Air Weight: 110 lb Body Mass Index (BMI) 18.3 Intake and Output for Last 24 Hours 10/02/19 10/03/19 10/04/19 23:59 23:59 23:59 Intake Total 1000 / 1000 Balance 1000 / 1000 General: Alert, Oriented x3, Cooperative, - - Malnourished HEENT: Atraumatic, PERRLA, EOMI, Normocephalic Neck: Supple, No JVD, Negative Carotid Bruits Lungs: Clear to auscultation, Normal air movement Cardiovascular: Regular rate, No murmurs Abdomen: Bowel Sounds Present, Soft, Non Tender, Non-Distended Extremities: No edema, Capillary Refill Less than 3 Seconds Skin: No rashes, No breakdown Musculoskeletal: No Tenderness to Palpation of Joints or Extremities Neurological: Neuro grossly intact Psych/Mental Status: Normal Affect, Appropriate Laboratory Results 10/04/19 09:15: WBC 14.6 H, RBC 5.54 H, Hgb 16.1 H, Hct 51.7 H, MCV 93.3, MCH 29.1, MCHC 31.1 L, RDW Std Deviation 52.9 H, RDW Coeff of Maribell 15.1 H, Plt Count 278, MPV 11.1, Immature Gran % (Auto) 1.100 H, Neut % (Auto) 80.9 H, Lymph % (Auto) 9.8 L, [place] % (Auto) 7.6, Eos % (Auto) 0.0, Baso % (Auto) 0.6, Absolute Neuts (auto) 11.8 H, Absolute Lymphs (auto) 1.42, Nucleated RBC % 0 10/04/19 09:15: Sodium 154 H, Potassium 3.8, Chloride 117 H, Carbon Dioxide 27.0, Anion Gap 10, BUN 92 H, Creatinine 1.97 H, Estim Creat Clear Calc 22.72, Est GFR (MDRD) Af Amer 33 L, Est GFR (MDRD) Non-Af 27 L, BUN/Creatinine Ratio 46.7 H, Glucose 130 H, Calcium 8.8, Total Bilirubin 0.70, AST 18, ALT 40, Alkaline Phosphatase 88, Troponin I < 0.015, Total Protein 8.1, Albumin 3.6, Globulin 4.5 H, Albumin/Globulin Ratio 0.8 L, Lipase 372 10/04/19 09:15: Lactic Acid 2.9 H* 10/04/19 09:15: Magnesium Pending 10/04/19 09:50: Urine Color Yellow, Urine Clarity Sl. Cloudy, Urine pH 5.0, Ur Specific [place] 1.025, Urine Protein 30 H, Urine Glucose (UA) Normal, Urine Ketones 15 H, Urine Occult Blood 25 H, Urine Nitrite Negative, Urine Bilirubin Negative, Urine Urobilinogen 1 H, Ur Leukocyte Esterase 100 H, Urine RBC 0 SEEN, Urine WBC 0-5 SEEN, Ur Squamous Epith Cells 0-5 SEEN, Urine Bacteria 2+, Hyaline Casts 10-25 SEEN, Fine Granular Casts 0-5 SEEN, Urine Mucus 1+ 10/04/19 13:49: Lactic Acid Cancelled Current Medications Albuterol Sulfate (Ventolin Aerosols) 2.5 mg INHALATION Q2H PRN PRN PRN Reason: Shortness of Breath/Wheezing Dextrose (D50w Syringe) 0 gm IV X1 PRN; Protocol PRN Reason: Hypoglycemia Enoxaparin Sodium (Lovenox) 40 mg SC DAILY [place] Glucagon () 1 mg IM .X1 PRN PRN Reason: Hypoglycemia Guaifenesin (Robitussin) 20 ml PO Q4H PRN PRN PRN Reason: COUGH Sodium Chloride () 1,000 mls @ 100 mls/hr IV .Q10H [place] Last Admin: 10/04/19 13:26 Dose: 100 mls/hr Documented by: Pantoprazole Sodium 40 mg/ (Sodium Chloride) 110 mls @ 330 mls/hr IV X1 ONE Stop: 10/04/19 14:29 Metoclopramide HCl (Reglan) 5 mg PO TIDAC [facility] Morphine Sulfate () 2 mg IV Q3H PRN PRN PRN Reason: Pain Score 4-10/10 Ondansetron HCl (Zofran) 4 mg IV Q8H PRN PRN PRN Reason: NAUSEA/VOMITING Pantoprazole Sodium (Protonix) 40 mg PO DAILY [facility] Sodium Chloride () 10 - 40 ml IV UD PRN PRN Reason: SALINE FLUSH Assessment/Plan All Active Problems Hypernatremia (Resolved) Leukocytosis (Acute) Urinary tract infection (Resolved) Acute kidney injury (Acute) Gastroenteritis (Acute) Hypernatremia (Acute) Nausea (Acute) Vomiting bile (Acute) I have been consulted in conjunction with Dr. Montana. Impression: 2 week history of nausea and intermittent dry heaves, weakness and . Likely etiology gastritis versus financial/living situation. Less likely gastric outlet obstructions or bowel obstruction. Plan: Discussed patient with Dr. Montana. At this time, patient is refusing CT scan of ab/pel with oral contrast due to financial reasons. Patient is also declining an upper scope and KUB due to cost. Recommend placing patient on a PPI to assist with gastritis. No surgical intervention is being planned at this time. Patient has had the opportunity to ask and have questions answered. Patient verbally understand sand agrees with the plan. Thank you for allowing us to participate in this patient's care. Code Visit Office Visits / Consults: [id number] IP Consult L3
[2019-10-04 15:11] LABS: CPK Total, Creatine Kinase 40 U/L (26-192)
[2019-10-04 15:17] LABS: Lactic Acid 2.5 mmol/L (0.4-1.9)
[2019-10-04 15:23] LABS: Magnesium 3.8 mg/dL (1.6-2.6)
--- NOTE | 2019-10-04 15:51 | CHAPLAIN ---
Type of Pastoral Visit _x__ Initial Visit ___ Follow-up Visit ___ On-call Visit ___ General Patient Visit ___ Spiritual Assessment ___ Family Conference ___ Bereavement ___ Rapid Response ___ Code Blue ___ Other (describe below) Pastoral Care Referral From _x__ Patient ___ Family ___ Nurse ___ Physician ___ Contractor Buyer ___ Revising Clerk ___ Other (describe below) Sacrament/Intervention _x__ Active listening ___ Anointing ___ Confucianism ___ Bereavement ___ Communion ___ Lety exploration ___ _x__ Life review _x__ Prayer ___ Reconciliation ___ Sacrament of Sick _x__ Supportive presence ___ Wedding ___ Other (describe below) Pastoral Comments
[2019-10-04] MEDS: Metoclopramide 5 MG TABLET PO (16:12)
--- NOTE | 2019-10-04 17:18 | CASEMGMT ---
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 Patient was admitted today. Chart reviewed. Noted that patient is self pay status, and that patient was also seen by social work in during last inpatient stay at [facility], with social situation appearing to be similar as from last admission. Plan: Social work will follow up as time allows on 10.05.2019 to assess for resources needs and emotional support as indicated. -DEVORA Olivares, ARTILLERY OFFICER
[2019-10-04 23:06] LABS: Bedside Glucose 95 mg/dL (70-110)
[2019-10-05] VITALS (7 sets, daily range): BP systolic 101–134; BP diastolic 53–77; PULSE 70–98; RESP 16–18; TEMP 36.6–37.1; O2SAT 96–100
[2019-10-05] MEDS: Metoclopramide 5 MG TABLET PO ×3 (05:46→15:50)
[2019-10-05 05:49] LABS: Absolute Lymphocyte Count 2.29 X10^3/uL (0.83-4.51); Absolute Neutrophil Count 8.8 X10^3/uL (2.0-7.7); Basophil# 0.09 X10^3/uL; Basophil% 0.7 % (0-1); Eosinophil# 0.05 X10^3/uL; Eosinophils% 0.4 % (0-5); Hematocrit 40.9 % (37-47); Hemoglobin 12.6 g/dL (12.0-15.0); Lymphocyte # 2.29 X10^3/ul (4.0); Lymphocyte % 17.8 % (19-41); Mean Corp Hgb Conc 30.8 g/dL (32-36); Mean Corpuscular Hgb 29.6 pg (27.0-32.0); Mean Platelet Vol. 10.8 fl (6.2-12.0); Monocyte# 1.11 X10^3/uL; Monocyte% 8.6 % (0-10); NRBC Flagged by Analyzer 0 % (0-5); Neutrophil # 8.77 X10^3/uL (2.7-7.7); Neutrophil % 68.1 % (47-70); Platelet Count 202 K/mm3 (150-450); RBC Distribution Width CV 15.9 % (11.6-14.6); RBC Distribution Width SD 56.4 fl (35.1-43.9); Red Blood Count 4.26 M/mm3 (4.2-5.4); White Blood Count 12.9 K/mm3 (4.4-11.0)
[2019-10-05 06:11] LABS: Bedside Glucose 85 mg/dL (70-110)
[2019-10-05 06:26] LABS: AST(SGOT) 19 U/L (15-37); Alanine Aminotransfer ALT/SGPT 30 U/L (13-56); Alkaline Phosphatase 66 U/L (45-117); Anion Gap 8 (5-15); BUN 57 mg/dL (7-18); BUN/Creat Ratio 41.9 RATIO (10-20); Bilirubin, Direct 0.24 mg/dL (0.00-0.30); Calcium,Total 8.1 mg/dL (8.5-10.1); Chloride 128 mmol/L (98-107); Creatinine, Serum 1.36 mg/dL (0.55-1.02); EST Glomerular Filtration Rate 42 mL/min (>60); Est Glom Filt Rate - Afr Amer 50 mL/min (>60); Estimated Creatinine Clearance 32.86 ml/min; Globulin 3.5 g/dL (2.2-4.2); Glucose 86 mg/dL (74-106); Potassium 3.9 mmol/L (3.5-5.1); Protein, Total 6.5 g/dL (6.4-8.2); Sodium Level 159 mmol/L (136-145)
[2019-10-05] MEDS: Pantoprazole Sodium 40 MG Tablet PO (09:34)
--- NOTE | 2019-10-05 10:43 | CASEMGMT ---
APRIL met with patient, introduced self and role at [facility]. Patient explained to SW she plans on going to [facility] at discharge. She has to go to [employer] to get her belongings first. She will call a cab and she has the finances to pay for a cab. She said she has all the resources that were given to her previously. She knows what she needs to do, it is just a matter of her getting better and doing it. She said she gets Alimony from her ex-. She said she turns 64 in a couple of weeks. She is working with Mike on housing she just needs to get them some of the information they need. She was a little tearful during conversation. SW spoke with her about counseling once she gets Medicare. She said she will add it to her list, but her first priority would be housing. She then asked SW to give her, her belongings so she can call the bank to make sure she has the appropriate funds in the bank to stay at [facility]. She thanked APRIL for checking in with her. Plan: d/c to [facility]. Patient will pay for a cab to get her there. Sejal CHRISTY MSW
[2019-10-05 12:21] LABS: Bedside Glucose 103 mg/dL (70-110)
--- NOTE | 2019-10-05 13:00 | PN_ITS ---
Patient Problems: Active and Suspected Problems Leukocytosis (Acute) Acute kidney injury (Acute) Hypernatremia (Acute) Nausea (Acute) Vomiting bile (Acute) Reason for Visit: Hypernatremia, hyperchloremia and severe dehydration secondary to poor oral intake. Vitals/I&O's: Vital Signs Temp Pulse Resp BP Pulse Ox 98.2 F 91 18 117/61 98 10/05/19 08:08 10/05/19 10:00 10/05/19 08:08 10/05/19 08:08 10/05/19 08:08 Oxygen Delivery Method Room Air Weight: 109 lb 12.8 oz Body Mass Index (BMI) 18.9 Intake and Output for Last 24 Hours 10/03/19 10/04/19 10/05/19 23:59 23:59 23:59 Intake Total 3208.33 / 3208.33 963.33 / 963.33 Output Total 600 / 600 600 / 600 Balance 2608.33 / 2608.33 363.33 / 363.33 General: Alert, Oriented x3, Cooperative HEENT: Atraumatic, PERRLA, EOMI, Normocephalic Neck: Supple, No JVD, Negative Carotid Bruits Lungs: Clear to auscultation, Normal air movement, No rhonchi, No wheeze, No rales Cardiovascular: Regular rate, Regular Rhythm, Normal S1, Normal S2, No murmurs Abdomen: Bowel Sounds Present, Soft, Non Tender, Non-Distended Extremities: No edema, Capillary Refill Less than 3 Seconds Skin: No rashes, No breakdown Musculoskeletal: No Tenderness to Palpation of Joints or Extremities, Arthritic Changes Neurological: Cranial nerves II-XII grossly intact Psych/Mental Status: Normal Affect, Appropriate Laboratory Results 10/04/19 09:15: Magnesium 3.8 H 10/04/19 13:49: Lactic Acid Cancelled 10/04/19 14:00: Total Creatine Kinase 40 10/04/19 14:25: Lactic Acid 2.5 H* 10/04/19 22:59: POC Glucose 95 10/05/19 05:40: WBC 12.9 H, RBC 4.26, Hgb 12.6, Hct 40.9, MCV 96.0, MCH 29.6, MCHC 30.8 L, RDW Std Deviation 56.4 H, RDW Coeff of Maribell 15.9 H, Plt Count 202, MPV 10.8, Immature Gran % (Auto) 4.400 H, Neut % (Auto) 68.1, Lymph % (Auto) 17.8 L, [place] % (Auto) 8.6, Eos % (Auto) 0.4, Baso % (Auto) 0.7, Absolute Neuts (auto) 8.8 H, Absolute Lymphs (auto) 2.29, Nucleated RBC % 0 10/05/19 05:40: Sodium 159 H, Potassium 3.9, Chloride 128 H*, Carbon Dioxide 23.0, Anion Gap 8, BUN 57 H, Creatinine 1.36 H, Estim Creat Clear Calc 32.86, Est GFR (MDRD) Af Amer 50 L, Est GFR (MDRD) Non-Af 42 L, BUN/Creatinine Ratio 41.9 H, Glucose 86, Calcium 8.1 L, Total Bilirubin 0.70, Direct Bilirubin 0.24, AST 19, ALT 30, Alkaline Phosphatase 66, Total Protein 6.5, Albumin 3.0 L, Globulin 3.5 10/05/19 05:59: POC Glucose 85 10/05/19 12:16: POC Glucose 103 Current Medications Albuterol Sulfate (Ventolin Aerosols) 2.5 mg INHALATION Q2H PRN PRN PRN Reason: Shortness of Breath/Wheezing Enoxaparin Sodium (Lovenox) 30 mg SC DAILY@0600 [facility] Last Admin: 10/05/19 05:46 Dose: Not Given Documented by: Glucagon () 1 mg IM .X1 PRN PRN Reason: Hypoglycemia Guaifenesin (Robitussin) 20 ml PO Q4H PRN PRN PRN Reason: COUGH Dextrose (Dextrose 10%-Water) 250 mls @ 999 mls/hr IV .Q16M PRN; Protocol PRN Reason: HYPOGLYCEMIA Dextrose () 1,000 mls @ 100 mls/hr IV .Q10H [facility] Last Admin: 10/05/19 06:51 Dose: 75 mls/hr Documented by: Metoclopramide HCl (Reglan) 5 mg PO TIDAC [facility] Last Admin: 10/05/19 12:13 Dose: 5 mg Documented by: Morphine Sulfate () 2 mg IV Q3H PRN PRN PRN Reason: Pain Score 4-10/10 Ondansetron HCl (Zofran) 4 mg IV Q8H PRN PRN PRN Reason: NAUSEA/VOMITING Pantoprazole Sodium (Protonix) 40 mg PO DAILY [place] Last Admin: 10/05/19 09:34 Dose: 40 mg Documented by: Sodium Chloride () 10 - 40 ml IV UD PRN PRN Reason: SALINE FLUSH STROKE Vital Signs/Narrative: Vital Signs Pulse 10/05/19 10:00 91 Medical Necessity - Tobacco Use Smoking Status: Never smoker Assessment/Plan All Active Problems Hypernatremia (Resolved) Leukocytosis (Acute) Urinary tract infection (Resolved) Acute kidney injury (Acute) Gastroenteritis (Acute) Hypernatremia (Acute) Nausea (Acute) Vomiting bile (Acute) The patient is a 63 year old F with history of recent admission in July 2019 for acute hyponatremia came to ER with, nausea, vomiting and not able to keep anything down. ER basic labs shows leukocytosis 14 point 6K, H&H 16.1/51, platelet count 278. Electrolytes shows hyponatremia 154, hyperchloremia, BUN/creatinine 92/1.97. Lactic acid 2.9 but she does not have symptoms are clinical features of infection or sepsis; mostly from severe dehydration. LFT shows albumin 3.6, globulin 4.5, A/G ratio 0.8. Lipase normal. 1. Acute hypernatremia secondary to severe dehydration most probably from poor oral intake: Patient is being admitted on MedSurg floor. She had 2 L of normal saline bolus in ER. Continue baseline normal saline IV fluid normal saline at 100 mils per hour. 10/05 2019: Patient was well hydrated. Sodium went up to 159. Normal saline was discontinued last night and started on D5W. Repeat sodium in afternoon shows 152. Cutdown D5W at 75 mL/h. Patient advised to drink free water and regular diet. [employer] consult for calorie calculation. 2. Acute kidney injury mainly prerenal from dehydration and lactic acid is secondary to poor perfusion/dehydration: IV fluid normal saline. Monitor intake and output. 10/05: Kidney function improved, BUN/creatinine 57/1.36. Patient is difficult IV stick for labs and requested not frequent draws therefore next lab for tomorrow a.m. 3. Vomiting and nausea probably from psychogenic/bad water quality: Patient does not want abdominal x-ray or CT scan because of the cost as she does not have insurance. Manage conservatively. Patient seen by surgeon Dr. Ariel Montana and does not seem surgical cause or GI obstruction for nausea or vomiting. Chest x-ray does not show gas in her diaphragm but colonic gas. 4. Bacteria in UA probably asymptomatic bacteriuria: Patient does not have lower urinary tract symptoms therefore no UTI. DVT prophylaxis: Moderate risk, Lovenox 40 mils subcu daily was ordered but patient refused for pharmacological or mechanical prophylaxis. Laboratory Results 10/04/19 22:59: POC Glucose 95 10/05/19 05:40: WBC 12.9 H, RBC 4.26, Hgb 12.6, Hct 40.9, MCV 96.0, MCH 29.6, MCHC 30.8 L, RDW Std Deviation 56.4 H, RDW Coeff of Maribell 15.9 H, Plt Count 202, MPV 10.8, Immature Gran % (Auto) 4.400 H, Neut % (Auto) 68.1, Lymph % (Auto) 17.8 L, [place] % (Auto) 8.6, Eos % (Auto) 0.4, Baso % (Auto) 0.7, Absolute Neuts (auto) 8.8 H, Absolute Lymphs (auto) 2.29, Nucleated RBC % 0 10/05/19 05:40: Sodium 159 H, Potassium 3.9, Chloride 128 H*, Carbon Dioxide 23.0, Anion Gap 8, BUN 57 H, Creatinine 1.36 H, Estim Creat Clear Calc 32.86, Est GFR (MDRD) Af Amer 50 L, Est GFR (MDRD) Non-Af 42 L, BUN/Creatinine Ratio 41.9 H, Glucose 86, Calcium 8.1 L, Total Bilirubin 0.70, Direct Bilirubin 0.24, AST 19, ALT 30, Alkaline Phosphatase 66, Total Protein 6.5, Albumin 3.0 L, Globulin 3.5 10/05/19 05:59: POC Glucose 85 10/05/19 12:16: POC Glucose 103 10/05/19 14:35: Sodium 152 H Clinical Impression(s) from Imaging Studies Chest X-Ray 10/04/19 07:44 IMPRESSION: Normal portable chest Code Visit Inpatient E&M: 81225 Subs Hosp L2
--- NOTE | 2019-10-05 14:47 | CHAPLAIN ---
Type of Pastoral Visit ___ Initial Visit _x__ Follow-up Visit ___ On-call Visit ___ General Patient Visit ___ Spiritual Assessment ___ Family Conference ___ Bereavement ___ Rapid Response ___ Code Blue ___ Other (describe below) Pastoral Care Referral From _x__ Patient ___ Family ___ Nurse ___ Physician ___ [place] ___ Claims Counsel ___ Other (describe below) Sacrament/Intervention _x__ Active listening ___ Anointing ___ Quaker ___ Bereavement ___ Communion ___ Lety exploration ___ ___ Life review _x__ Prayer ___ Reconciliation ___ Sacrament of Sick _x__ Supportive presence ___ Wedding ___ Other (describe below) Pastoral Comments
[2019-10-05 15:03] LABS: Sodium Level 152 mmol/L (136-145)
[2019-10-06 02:37] VITALS: BP 99/57; PULSE 88; RESP 16; TEMP 37.1; O2SAT 98
[2019-10-06 02:43] VITALS: BP 106/63
[2019-10-06] MEDS: Metoclopramide 5 MG TABLET PO (05:48)
[2019-10-06 06:25] LABS: Anion Gap 4 (5-15); BUN 28 mg/dL (7-18); BUN/Creat Ratio 24.3 RATIO (10-20); Calcium,Total 8.4 mg/dL (8.5-10.1); Chloride 116 mmol/L (98-107); Creatinine, Serum 1.15 mg/dL (0.55-1.02); EST Glomerular Filtration Rate 50 mL/min (>60); Est Glom Filt Rate - Afr Amer 61 mL/min (>60); Estimated Creatinine Clearance 39.92 ml/min; Glucose 113 mg/dL (74-106); Potassium 3.4 mmol/L (3.5-5.1); Sodium Level 149 mmol/L (136-145)
--- NOTE | 2019-10-06 07:41 | NURSING ---
LINDA, PERSON TO NOTIFY, WAS NOTIFIED THAT PT ROOM HAS CHANGED
[2019-10-06 08:13] VITALS: BP 106/67; PULSE 79; RESP 16; TEMP 36.8; O2SAT 96
--- NOTE | 2019-10-06 08:32 | DCINST_ITS ---
- Discharge Diagnoses Current Active Problems: Current Active and Chronic Problems Leukocytosis (Acute) Acute kidney injury (Acute) Hypernatremia (Acute) Nausea (Acute) Vomiting bile (Acute) You will use the following diet at home:: Regular Your food should be the consistency of: Regular Discharge Activity: May Not Drive Weight Bearing Status: Weight bearing as tolerated Call your doctor if you observe: Fever of 101 or Higher, Coldness, Increased Pain, Numbness or Tingling, Inability to have a bowel movement, Using more than one pad per hour, Shortness of breath, Dizziness, Fainting spells, Swelling in the ankles, Chest pain, Prolonged hiccoughing, Increased palpitations (irregular heartbeat) Additional Instructions: If patient cannot afford Protonix, can take [id number] Pepcid 20 mg twice daily. Allergies/Adverse Reactions: Allergies aspirin Allergy (Verified 10/04/19 07:25) facial swelling as a child formaldehyde Allergy (Verified 10/04/19 07:25) Shortness of breath procaine [From Novocain] Allergy (Verified 10/04/19 07:25) Angioedema chocolate flavor Adverse Reaction (Verified 10/04/19 07:25) Diarrhea cinnamon Adverse Reaction (Verified 10/04/19 07:25) Upset Stomach cobalt Adverse Reaction (Verified 10/04/19 07:25) Nausea/Vom/Diarrhea yaa Adverse Reaction (Verified 10/04/19 07:25) Upset Stomach perfume Adverse Reaction (Verified 10/04/19 07:25) difficulty breathing pseudoephedrine [From Sudafed] Adverse Reaction (Verified 10/04/19 07:25) elevated heart rate ANTIBIOTICS Adverse Reaction (Uncoded 10/04/19 07:25) Nausea steroids Adverse Reaction (Uncoded 10/04/19 07:25) nausea/ears ringing Medications to take at Discharge Pantoprazole Sodium [Protonix] 40 mg PO DAILY #30 tab 10/06/19 The following prescriptions were given: Pantoprazole Sodium [Protonix] 40 mg PO DAILY #30 tab Transmission Status: Received by [facility] Primary Care Physician: Care Physician,No Primary [Primary Care Provider] - Please follow up with your Primary Care Physician in: in 2 weeks Test Results: Test results from this visit will be discussed in further detail at your follow- up appointment, if applicable.
--- NOTE | 2019-10-06 08:33 | DS.PCM_ITS ---
Discharge Date and Diagnosis Date of Admission: 10/04/19 Date of Discharge: 10/06/19 - Primary Discharge Diagnosis Active and Suspected Problems Leukocytosis (Acute) Acute kidney injury (Acute) Hypernatremia (Acute) Nausea (Acute) Vomiting bile (Acute) Hospital Course and Treatment Summary of Care Provided: The patient is a 63 year old F with history of recent admission in July 2019 for acute hyponatremia came to ER with, nausea, vomiting and not able to keep anything down. ER basic labs shows leukocytosis 14 point 6K, H&H 16.1/51, platelet count 278. Electrolytes shows hyponatremia 154, hyperchloremia, BUN/creatinine 92/1.97. Lactic acid 2.9 but she does not have symptoms are clinical features of infection or sepsis; mostly from severe dehydration. LFT shows albumin 3.6, globulin 4.5, A/G ratio 0.8. Lipase normal. 1. Acute hypernatremia secondary to severe dehydration most probably from poor oral intake: Patient is being admitted on MedSur floor. She had 2 L of normal saline bolus in ER. Continue baseline normal saline IV fluid normal saline at 100 mils per hour. Patient was managed with D5W and free water. Patient was well hydrated. Sodium went up to 159. Normal saline was discontinued last night and started on D5W. Repeat sodium in afternoon shows 152. Cutdown D5W at 75 mL/h. Patient advised to drink free water and regular diet. [employer] consult for calorie calculation. Rapid correction of sodium was avoided. D5W was discontinued yesterday in afternoon. Last sodium 149. Patient does not want further lab and wants to go home. Advised free water drinking about 2 L daily. 2. Acute kidney injury mainly prerenal from dehydration and lactic acid is secondary to poor perfusion/dehydration: IV fluid normal saline. Monitor intake and output. 10/05: Kidney function improved, BUN/creatinine 57/1.36. Last blood/creatinine 28/1.15. JAGDISH resolved. 3. Vomiting and nausea probably from psychogenic/bad water quality: Patient does not want abdominal x-ray or CT scan because of the cost as she does not have insurance. Manage conservatively. Patient seen by surgeon Dr. Ariel Montana and does not seem surgical cause or GI obstruction for nausea or vomiting. Chest x-ray does not show gas in her diaphragm but colonic gas. 4. Bacteria in UA probably asymptomatic bacteriuria: Patient does not have lower urinary tract symptoms therefore no UTI. DVT prophylaxis: Moderate risk, Lovenox 40 mils subcu daily was ordered but patient refused for pharmacological or mechanical prophylaxis. Discharge medication reconciliation done. Discharge follow-up instructions completed. Discharge process discussed with the patient and all questions were answered to patient's satisfaction. Prescription for Protonix sent to retail pharmacy. Total time spent, exact 35 minutes on discharge meds reconciliation, examination, coordination of care with nurses and ancillary staff, review of imaging and blood test and discussion with the patient on follow-up instructions [] Subjective: Patient sodium is much better. K3.4. Sodium 149. Patient denies any neurological symptoms including dizziness, altered mental status or confusion. Wants to go home. - Physical Exam Vitals/I&O's: Vital Signs Temp Pulse Resp BP Pulse Ox 98.8 F 88 16 106/63 98 10/06/19 02:37 10/06/19 02:37 10/06/19 02:37 10/06/19 02:43 10/06/19 02:37 Oxygen Delivery Method Room Air Weight: 112 lb 12.8 oz Body Mass Index (BMI) 18.9 Intake and Output for Last 24 Hours 10/04/19 10/05/19 10/06/19 23:59 23:59 23:59 Intake Total 3208.33 / 3208.33 2662.08 / 2662.08 500 / 500 Output Total 600 / 600 950 / 950 Balance 2608.33 / 2608.33 1712.08 / 1712.08 500 / 500 General: Alert, Oriented x3, Cooperative HEENT: Atraumatic, PERRLA, EOMI, Normocephalic Neck: Supple, No JVD, Negative Carotid Bruits Lungs: Clear to auscultation, Normal air movement, No rhonchi, No wheeze, No rales Cardiovascular: Regular rate, Regular Rhythm, Normal S1, Normal S2, No murmurs Abdomen: Bowel Sounds Present, Soft, Non Tender, Non-Distended Extremities: No edema, Capillary Refill Less than 3 Seconds Skin: No rashes, No breakdown Musculoskeletal: No Tenderness to Palpation of Joints or Extremities Neurological: Cranial nerves II-XII grossly intact, Deep Tendon Reflexes 2+/4 and Symmetrical, Neuro grossly intact Psych/Mental Status: Normal Affect, Appropriate Laboratory Results 10/05/19 12:16: POC Glucose 103 10/05/19 14:35: Sodium 152 H 10/06/19 06:00: Sodium 149 H, Potassium 3.4 L, Chloride 116 H, Carbon Dioxide 29.0, Anion Gap 4 L, BUN 28 H, Creatinine 1.15 H, Estim Creat Clear Calc 39.92, Est GFR (MDRD) Af Amer 61, Est GFR (MDRD) Non-Af 50 L, BUN/Creatinine Ratio 24.3 H, Glucose 113 H, Calcium 8.4 L Current Medications Albuterol Sulfate (Ventolin Aerosols) 2.5 mg INHALATION Q2H PRN PRN PRN Reason: Shortness of Breath/Wheezing Enoxaparin Sodium (Lovenox) 30 mg SC DAILY@0600 [facility] Last Admin: 10/06/19 05:48 Dose: Not Given Documented by: Glucagon () 1 mg IM .X1 PRN PRN Reason: Hypoglycemia Guaifenesin (Robitussin) 20 ml PO Q4H PRN PRN PRN Reason: COUGH Dextrose (Dextrose 10%-Water) 250 mls @ 999 mls/hr IV .Q16M PRN; Protocol PRN Reason: HYPOGLYCEMIA Metoclopramide HCl (Reglan) 5 mg PO TIDAC [facility] Last Admin: 10/06/19 05:48 Dose: 5 mg Documented by: Morphine Sulfate () 2 mg IV Q3H PRN PRN PRN Reason: Pain Score 4-10/10 Ondansetron HCl (Zofran) 4 mg IV Q8H PRN PRN PRN Reason: NAUSEA/VOMITING Pantoprazole Sodium (Protonix) 40 mg PO DAILY [facility] Last Admin: 10/05/19 09:34 Dose: 40 mg Documented by: Potassium Chloride (K-Dur) 40 meq PO X1 ONE Stop: 10/06/19 08:32 Sodium Chloride () 10 - 40 ml IV UD PRN PRN Reason: SALINE FLUSH Discharge Activity: May Not Drive Weight Bearing Status: Weight bearing as tolerated Call your doctor if you observe: Fever of 101 or Higher, Coldness, Increased Pain, Numbness or Tingling, Inability to have a bowel movement, Using more than one pad per hour, Shortness of breath, Dizziness, Fainting spells, Swelling in the ankles, Chest pain, Prolonged hiccoughing, Increased palpitations (irregular heartbeat) Home Medications: Medications to take at Discharge Pantoprazole Sodium [Protonix] 40 mg PO DAILY #30 tab 10/06/19 Following Prescrptions Were Given to Patient: Pantoprazole Sodium [Protonix] 40 mg PO DAILY #30 tab Transmission Status: Received by [facility] Primary Care Physician: Care Physician,No Primary [Primary Care Provider] - Please follow up with your Primary Care Physician in: in 2 weeks Medical Necessity - Tobacco Use Smoking Status: Never smoker Meaningful Use Info Meaningful Use Diagnoses (Choose all that apply): None applicable Code Visit Inpatient E&M: 17984 Disch Hosp
[2019-10-06] MEDS: Pantoprazole Sodium 40 MG Tablet PO (08:57)
[2019-10-06 09:05] VITALS: PULSE 88
[2019-10-06 09:41] VITALS: BP 102/67; PULSE 93; RESP 16; TEMP 36.4; O2SAT 100
== END 2019-10-06 09:45 | disposition home or self-care (01) | DRG 815 ==
LOC: ED 12:08 → PCU 18:33 → MS2 10-05 07:50 → PCU 10-05 07:50 → MS2 10-05 22:52
PROVIDERS: Admitting Provider Internal Medicine; Emergency Provider Emergency Medicine; Visit Provider Internal Medicine
DX: D72.829 Elevated white blood cell count, unspecified (principal); N17.9 Acute kidney failure, unspecified; E87.0 Hyperosmolality and hypernatremia; E86.0 Dehydration; E87.8 Other disorders of electrolyte and fluid balance, not elsewhere classified; R11.2 Nausea with vomiting, unspecified; R63.8 Other symptoms and signs concerning food and fluid intake; Z59.0 Homelessness
CPT/HCPCS: 36415; 71045; 80048; 80053; 80076; 81001; 82550; 82962; 83605; 83690; 83735; 84295; 84484; 85025; 93005; 99285; J7030; A4216; J2405

== ENCOUNTER 2021-05-13 18:05 | Inpatient (IN) | payer MEDICARE, SELFPAY ==
[2021-05-13] VITALS (14 sets, daily range): BP systolic 108–164; BP diastolic 75–120; PULSE 78–114; RESP 14–34; TEMP 36.2–36.6; O2SAT 97–100; BMI 13.7
--- NOTE | 2021-05-13 18:33 | RAD_ITS ---
INDICATION: dyspnea EXAMINATION/TECHNIQUE: X-RAY - XR Chest 1 View COMPARISON: 10/04/2019. FINDINGS: Left basilar atelectasis. Lungs otherwise clear. There is widening of the upper mediastinum. No pleural effusion or pneumothorax. No acute osseous abnormalities. RAD/Chest 1 View (Portable) IMPRESSION: Widening of the upper mediastinum. Recommend chest CTA for further evaluation. Electronically Signed: Serafin Carty MD at 19:32 EDT Tel , Service support ,
--- NOTE | 2021-05-13 18:33 | EKG12_ITS ---
Test Reason : SOB Blood Pressure : / mmHG Vent. Rate : 110 BPM Atrial Rate : 110 BPM P-R Int : 146 ms QRS Dur : 080 ms QT Int : 354 ms P-R-T Axes : 081 039 -02 degrees QTc Int : 479 ms Sinus tachycardia Biatrial enlargement Nonspecific ST and T wave abnormality Abnormal ECG Confirmed by JULES WEBSTER, IGNACIA ([id number]), make up editor KENA GUARDADO ([id number]) on 05/19/2021 10:34:16 AM Referred By: DELMY Confirmed By:EDEN VICENTE MD
--- NOTE | 2021-05-13 18:35 | EDS_ITS ---
HPI History of Present Illness Chief Complaint: Shortness of Breath Detail of Chief Complaint: Shortness of breath that started 3 hours ago Informant: patient Narrative Narrative: Patient presents with shortness of breath that started 3 hours ago while eating fish. Patient states that she choked and thinks the food went into her windpipe. On EMS arrival her pulse ox was in the 60s. Patient denies any chest pain. Patient was placed on a nonrebreather and her oxygen level normalized. Patient denies trouble swallowing her own secretions. Patient states this is happened before and she did not need to be scoped. Patient has no significant medical history otherwise. [facility] Medical History unable to obtain Home Medications pantoprazole 40 mg PO DAILY #30 tab 10/06/19 [Rx Last Taken Unknown] Allergy/AdvReac Type Severity Reaction Status Date / Time aspirin Allergy facial Verified 10/04/19 07:25 swelling as a child formaldehyde Allergy Shortness Verified 10/04/19 07:25 of breath procaine [From Novocain] Allergy Angioedema Verified 10/04/19 07:25 chocolate flavor AdvReac Diarrhea Verified 10/04/19 07:25 cinnamon AdvReac Upset Verified 10/04/19 07:25 Stomach cobalt AdvReac Nausea/Vom/ Verified 10/04/19 07:25 Diarrhea yaa AdvReac Upset Verified 10/04/19 07:25 Stomach perfume AdvReac difficulty Verified 10/04/19 07:25 breathing pseudoephedrine AdvReac elevated Verified 10/04/19 07:25 [From Sudafed] heart rate ANTIBIOTICS AdvReac Nausea Uncoded 10/04/19 07:25 steroids AdvReac nausea/ears Uncoded 10/04/19 07:25 ringing Social History Smoking Status: Never smoker ROS ROS ED Constitutional Constitutional ED: Reports systems reviewed and no addt'l complaints, except as documented; Denies body ache(s), change in weight or chills Eyes Eyes: Denies acute decrease in peripheral vision, change in vision, double vision or loss of vision ENT ENT ED: Reports none; Denies ear pain, lip swelling, loss taste/smell, neck pain, otalgia or sore throat Cardiovascular Cardiovascular: Reports none; Denies abdominal pain, chest pain with activity, leg edema, lightheadedness, palpitations, rapid heart rate or syncope Respiratory/Chest Respiratory/Chest: Reports cough and dyspnea Gastrointestinal Gastrointestinal: Reports none; Denies abdominal pain, change in stool character, diarrhea, hematemesis, hematochezia, melena, rectal bleeding or vomiting Genitourinary Genitourinary ED: Reports none; Denies abdominal discomfort, anuria, dysuria, genital pain or polyuria Musculoskeletal Musculoskeletal: Reports none; Denies arthralgias, back pain, difficulty walking, extremity pain, muscle weakness or myalgias Integumentary Reports none; Denies abscess or rash Neurologic Neurologic: Reports none; Denies abnormal gait, confusion, focal weakness, frequent falls, headache(s), loss of vision, numbness, paresthesias, radicular pain, vertigo or weakness Psychiatric Psychiatric: Reports systems reviewed and no addt'l complaints, except as documented and none; Denies behavioral changes, confusion, difficulty concentrating, hallucinations, suicidal ideation, tactile hallucinations or visual hallucinations Endocrine Endocrinology: Denies none, cold intolerance, excessive sweating, fatigue or heat intolerance Hematologic/Lymphatic Hematologic/Lymphatic: Reports none; Denies anemia, easy bleeding or easy bruising Allergic/Immunologic Allergic/Immunologic ED: Denies as per HPI, none, lip swelling, mouth swelling, throat swelling, tongue swelling or hives EXAM Physical Exam Const Vital Signs: 05/13/21 18:06 05/13/21 18:12 05/13/21 18:41 Temperature 97.1 F L 97.1 F L Temperature Source Temporal Temporal Pulse Rate 114 H 114 H 108 H Respiratory Rate 34 H 34 H 16 Respiratory Effort Labored Accessory Muscle Use Nasal Flaring Retracting Splinting Head Bobbing Respiratory Depth Deep Respiratory Pattern Tachypnea Gasping Blood Pressure 164/120 H 164/120 H Blood Pressure Mean 134 134 Pulse Ox 97 97 Oxygen Delivery Method Venturi Mask Venturi Mask Oxygen Flow Rate (L/min) 6 6 Fraction of Inspired Oxygen (FIO2) 05/13/21 19:18 05/13/21 20:02 05/13/21 20:07 Temperature Temperature Source Pulse Rate 107 H 110 H Respiratory Rate 20 H 19 H Respiratory Effort Short of Breath Respiratory Depth Shallow Respiratory Pattern Tachypnea Blood Pressure 153/105 H 108/75 Blood Pressure Mean 121 86 Pulse Ox 99 100 Oxygen Delivery Method Non-Rebreather Ambu-Bag Oxygen Flow Rate (L/min) 15 Fraction of Inspired Oxygen (FIO2) 05/13/21 20:42 05/13/21 20:52 05/13/21 21:05 Temperature Temperature Source Pulse Rate 90 88 93 Respiratory Rate 14 16 15 Respiratory Effort Respiratory Depth Respiratory Pattern Blood Pressure 116/87 H 114/84 H 119/90 H Blood Pressure Mean 96 94 99 Pulse Ox 98 98 Oxygen Delivery Method Mechanical Ventilator Oxygen Flow Rate (L/min) Fraction of Inspired Oxygen (FIO2) 40 05/13/21 21:19 05/13/21 21:25 05/13/21 21:35 Temperature 97.8 F Temperature Source Temporal Pulse Rate 85 85 Respiratory Rate 14 14 Respiratory Effort Respiratory Depth Respiratory Pattern Normal Blood Pressure 117/90 H 118/91 H Blood Pressure Mean 99 100 Pulse Ox 100 100 100 Oxygen Delivery Method Mechanical Ventilator Mechanical Ventilator Oxygen Flow Rate (L/min) Fraction of Inspired Oxygen (FIO2) 40 40 40 05/13/21 21:50 05/13/21 22:10 05/13/21 22:49 Temperature Temperature Source Pulse Rate 81 78 80 Respiratory Rate 15 14 14 Respiratory Effort Respiratory Depth Respiratory Pattern Blood Pressure 120/92 H 118/94 H 112/89 H Blood Pressure Mean 101 102 96 Pulse Ox 100 100 100 Oxygen Delivery Method Mechanical Ventilator Mechanical Ventilator Mechanical Ventilator Oxygen Flow Rate (L/min) Fraction of Inspired Oxygen (FIO2) 40 40 40 05/14/21 00:00 Temperature Temperature Source Pulse Rate 79 Respiratory Rate 14 Respiratory Effort Respiratory Depth Respiratory Pattern Blood Pressure 118/97 H Blood Pressure Mean 104 Pulse Ox 100 Oxygen Delivery Method Mechanical Ventilator Oxygen Flow Rate (L/min) Fraction of Inspired Oxygen (FIO2) 30 Positive well nourished and well developed General Appearance ED: well developed and NAD HEENT Reports TM's clear and moist mucous membranes normocephalic and atraumatic; Negative for trauma or tenderness Tympanic Membrane ED: Yes TM's clear Eyes PERRL and EOMs intact bilaterally General Eye ED: Negative for pale conjunctiva or scleral icterus Neck no lymphadenopathy, supple and no JVD General: Negative for tenderness Chest Wall inspection of chest normal and palpation of chest normal Chest: Negative for tenderness Resp normal respiratory effort and clear to auscultation bilaterally Resp Narrative: Patient with diminished lung sounds bilaterally with some faint expiratory wheezes noted. She is tachypneic. No accessory muscle use or retractions. Effort and Inspection: Negative for respiratory distress or pain with movement Auscultation: wheezes and diminished lung sounds; Negative for rhonchi Cardio regular rate, regular rhythm, S1 normal heart sound, S2 normal heart sound and no murmurs Peripheral Pulses: pulses 2+ throughout GI normal to inspection, nondistended, normoactive bowel sounds, soft to palpation, non-tender, non-distended and no masses Back/Spine no CVA tenderness and no thoracic nor lumbar tenderness Extremity normal to inspection General Extremety ED: Negative for edema General Extremity: Negative for edema Neuro oriented x3, CN's II-XII intact bilaterally, no sensory deficits noted and gait normal Sensorium / Orientation: awake, alert, oriented to person, oriented to place and oriented to time Motor Exam: strength 5/5 throughout and strength abnormal Psych mental status grossly normal Skin no rashes or lesions noted and no wounds MDM MDM MDM Narrative Medical decision making narrative: Patient received DuoNeb aerosols on arrival. Chest x-ray showed a wide mediastinum. Patient continues to vomit and I suspect she may have a esophageal obstruction as well as possibly aspiration of food. I discussed case with data processing mechanic Dr. Cisneros who asked that we obtain a CTA of the patient's chest. Patient was unable to lay flat and therefore I was asked to intubate her and obtain a CTA. I also discussed case with gastroenterology. After patient was intubated and CTA of the chest was obtained it was noted that she had a severely dilated esophagus with obstruction. There is no evidence of perforation. There is no evidence of PE. I was asked by data processing mechanic and software lead to transfer patient to tertiary care center. We have made multiple attempts to all [facility] to arrange transfer however there is no bed availability. Patient was accepted at [facility] but they will not have a bed available this evening. Case was discussed with data processing mechanic again and patient will be admitted to our facility as there are no other beds available. We have also paged GI once again and waiting on a call back. Lab Data Attestation: I reviewed the patient's lab results. Labs: Laboratory Results - last 24 hr 05/13/21 05/13/21 05/13/21 18:45 18:45 18:45 WBC 12.0 H RBC 4.01 L Hgb 12.3 Hct 38.2 MCV 95.3 MCH 30.7 MCHC 32.2 RDW Std Deviation 51.7 H RDW Coeff of Maribell 14.7 H Plt Count 414 MPV 8.8 Immature Gran % (Auto) 3.400 H Neut % (Auto) 61.9 Lymph % (Auto) 28.4 [place] % (Auto) 4.7 Eos % (Auto) 0.8 Baso % (Auto) 0.8 Absolute Neuts (auto) 7.4 Absolute Lymphs (auto) 3.41 Nucleated RBC % 0 D-Dimer Quant (PE/DVT) 0.92 H* Sodium 143 Potassium 3.0 L Chloride 100 Carbon Dioxide 34.0 H Anion Gap 9 BUN 17 Creatinine 0.93 Estim Creat Clear Calc 35.23 Est GFR (MDRD) Af Amer 78 Est GFR (MDRD) Non-Af 64 BUN/Creatinine Ratio 18.4 Glucose 228 H Calcium 9.1 Radiography Chest X-Ray - ED: 1 View Diagnostic Testing: Radiology Impression Chest X-Ray 05/13/21 18:33 IMPRESSION: Widening of the upper mediastinum. Recommend chest CTA for further evaluation. Electronically Signed: Serafin Carty MD at 19:32 EDT Tel , Service support , Chest X-Ray 05/13/21 20:07 IMPRESSION: 1. Endotracheal tube as described. 2. No other interval change. Electronically Signed: Ar Cuevas DO at 20:48 EDT Tel [phone], Service support , Chest CTA 05/13/21 20:12 IMPRESSION: 1. No pulmonary embolus. 2. No aortic dissection or aneurysm. 3. Markedly dilated esophagus filled with debris and fluid. Alternatively, this could represent a gastric pull-up procedure in the proper clinical setting. No history of esophageal cancer surgery is provided 4. No acute pulmonary disease. Electronically Signed: Ar Cuevas DO at 21:27 EDT Tel [phone], Service support , 1 view chest x-ray obtained showed a wide mediastinum and hyperinflation EKG Initial EKG: Attestation: I personally reviewed and interpreted this EKG as follows: Comments: Sinus rhythm with a ventricular rate of 110 bpm with biatrial enlargement and nonspecific ST changes. Critical Care Time Critical care time (excluding procedures): 30-74 minutes, 75-104 minutes, Including time spent:, Discussing w/Patient &/or Family/Rn Procedure, Discussing w/Consultants, Arranging Admission or Transfer, Performing Direct Patient Care at Bedside and - Discharge Plan Dx/Rx/DC Orders Clinical Impression: Food impaction of esophagus, Respiratory failure Disposition Disposition: Acute Care Hospital [facility]
[2021-05-13] MEDS: Ipratropium/Albuterol Sulfate 3 ML AMPUL.NEB INHALATION (18:40)
[2021-05-13] MEDS: Albuterol 2.5 MG/3 ML VIAL.NEB. INHALATION (18:40)
[2021-05-13 18:56] LABS: Absolute Lymphocyte Count 3.41 X10^3/uL (0.83-4.51); Absolute Neutrophil Count 7.4 X10^3/uL (2.0-7.7); Basophil# 0.09 X10^3/uL; Basophil% 0.8 % (0-1); Eosinophil# 0.09 X10^3/uL; Eosinophils% 0.8 % (0-5); Hematocrit 38.2 % (37-47); Hemoglobin 12.3 g/dL (12.0-15.0); Lymphocyte # 3.41 X10^3/ul (0.83-4.51); Lymphocyte % 28.4 % (19-41); Mean Corp Hgb Conc 32.2 g/dL (32-36); Mean Corpuscular Hgb 30.7 pg (27.0-32.0); Mean Corpuscular Volume 95.3 fL (81-99); Mean Platelet Vol. 8.8 fl (6.2-12.0); Monocyte# 0.56 X10^3/uL; Monocyte% 4.7 % (0-10); NRBC Flagged by Analyzer 0 % (0-5); Neutrophil # 7.43 X10^3/uL (2.7-7.7); Neutrophil % 61.9 % (47-70); Platelet Count 414 K/mm3 (150-450); RBC Distribution Width CV 14.7 % (11.6-14.6); RBC Distribution Width SD 51.7 fl (35.1-43.9); Red Blood Count 4.01 M/mm3 (4.2-5.4)
[2021-05-13 19:08] LABS: D-Dimer Quantitative (DVT/PE) 0.92 FEU/ug/m (0.27-0.49)
[2021-05-13] MEDS: 0.9% Normal Saline 1,000 ML 150 ML IV (19:10)
[2021-05-13 19:15] LABS: Anion Gap 9 (5-15); BUN 17 mg/dL (7-18); BUN/Creat Ratio 18.4 RATIO (10-20); Calcium,Total 9.1 mg/dL (8.5-10.1); Chloride 100 mmol/L (98-107); Creatinine, Serum 0.93 mg/dL (0.55-1.02); EST Glomerular Filtration Rate 64 mL/min (>60); Est Glom Filt Rate - Afr Amer 78 mL/min (>60); Estimated Creatinine Clearance 35.23 ml/min; Glucose 228 mg/dL (74-106); Sodium Level 143 mmol/L (136-145)
[2021-05-13] MEDS: Etomidate 20 MG/10 ML Vial IV (20:03)
[2021-05-13] MEDS: Succinylcholine Chloride 200 MG/10 ML Vial 70 MG IV (20:03)
--- NOTE | 2021-05-13 20:07 | RAD_ITS ---
STUDY: X-RAY CHEST REASON FOR EXAM: Female, 65 years old. Line placement. TECHNIQUE: Single AP portable view of the chest. COMPARISON: 05/13/2021 ([id number]). FINDINGS: There is now an endotracheal tube with its tip approximately 7.5 cm above the crow. Lungs are hyperexpanded. There is no new mass or infiltrate. There is no demonstrated pleural abnormality. Normal size heart. 10 seen is prominence of the right superior mediastinum. Normal visualized pulmonary arteries. Normal visualized aortic arch and descending thoracic aorta. Normal visualized thoracic spine. Normal visualized ribs, clavicles, and shoulders. There is no demonstrated abnormality of the visualized soft tissue structures of the upper abdomen. RAD/Chest 1 View (Portable) IMPRESSION: 1. Endotracheal tube as described. 2. No other interval change. Electronically Signed: Ar Cuevas DO at 20:48 EDT Tel [phone], Service support ,
[2021-05-13] MEDS: Propofol 10MG/Ml 1,000 MG/100 ML Bottle 2.3 MG CONT INF (20:10)
--- NOTE | 2021-05-13 20:11 | NURSING ---
et tube advanced to 23 at the lips at this time
--- NOTE | 2021-05-13 20:12 | CT_ITS ---
STUDY: CTA CHEST REASON FOR EXAM: Female, 65 years old. Widened mediastinum. Patient choked on fish. RADIATION DOSAGE (If Supplied By Facility): CTDIvol = ( 6.87 ) mGy, DLP = ( 127.04 ) mGycm TECHNIQUE: The examination was performed with the intravenous administration of IV 75mL [id number]-[id number]. Post-processing of the angiographic images was performed, with multiplanar reformation and 3D reconstruction. Individualized dose optimization techniques were used for this CT. COMPARISON: Chest, 05/13/2021. FINDINGS: There is an endotracheal tube with its tip approximately 6 cm above the crow. Normal enhancement of the main pulmonary artery and right and left pulmonary arteries. Normal enhancement of the bilateral peripheral pulmonary arteries. There is no demonstrated pulmonary embolism. Normal thoracic aorta and visualized great vessels. There is no demonstrated aortic dissection. Normal heart and pericardium. There is marked dilatation of the esophagus prominent origin to the diaphragm this is filled with fluid and debris. Displacement of the heart and mediastinal structures anteriorly compresses the AP diameter of the thoracic trachea. Normal hilar regions. Otherwise normal visualized trachea and bronchi. The lungs are well expanded. The lungs are clear without infiltrate or mass Normal pleura. There is cachexia the soft tissues of the chest wall. No osseous abnormalities Normal osseous structures. The abdominal contents are poorly visualized due to lack of internal body fat. CT/CTA Chest W/WO Contrast IMPRESSION: 1. No pulmonary embolus. 2. No aortic dissection or aneurysm. 3. Markedly dilated esophagus filled with debris and fluid. Alternatively, this could represent a gastric pull-up procedure in the proper clinical setting. No history of esophageal cancer surgery is provided 4. No acute pulmonary disease. Electronically Signed: Ar Cuevas DO at 21:27 EDT Tel [phone], Service support ,
[2021-05-13] MEDS: Midazolam 2 MG/2 ML Syringe IV ×2 (21:14→22:47)
[2021-05-14] VITALS (38 sets, daily range): BP systolic 91–136; BP diastolic 67–97; PULSE 55–82; RESP 9–14; TEMP 36–36.8; O2SAT 94–100; BMI 14.6
--- NOTE | 2021-05-14 00:50 | ED.RN ---
WAS ASKED TO TRANSFER THIS PATIENT, SHE NEEDED A ICU cardiothoracic SURGEON. I CALLED [facility], [facility], [facility], [facility], [facility] THEY ALL HAD SAID NO DUE TO NO ICU BEDS. [facility] HAS ACCEPTED HER, THEY JUST DON'T HAVE A BED UNTIL TOMORROW FOR HER.
--- NOTE | 2021-05-14 01:15 | HP.PCM.HOS_ITS ---
[facility] - General General Date of Admission: 05/14/21 Date of Service: 05/14/21 Chief Complaint: Shortness of breath HPI Narrative DEBI SWAIN, is a 65 F who presented to the emergency department [facility] on 05/13/2021 with shortness of breath that started 3 hours prior to admission. She reported to the ED physician that she was eating fish and choked and believes food went into her trachea. Upon EMS arrival her oxygen saturation was 60%. On presentation she denied chest pain per documentation and was placed on a nonrebreather with normalization of her oxygen saturations. At the time of admission she denied any difficulty swallowing her own secretions and stated that this had happened before but she did not require an EGD at that time. Chest x-ray was performed and demonstrated widened mediastinum for which a CTA of the chest was performed and showed no pulmonary embolus, aortic dissection or aneurysm but a markedly dilated esophagus filled with debris and fluid that extends above the tracheal crow. Because the patient was not able to lie flat to have the CTA performed she was electively intubated for this procedure since her mediastinum was so incredibly widened on her chest x-ray it was felt prudent to obtain a good study to further evaluate what was the cause of the wide mediastinum. Other than her hypoxemia her vital signs were stable throughout her hospital course in the emergency department. Given the extensiveness of her esophageal dilation both GI and critical care medicine recommended transfer to tertiary center. Multiple facilities were called and the patient was accepted for transfer at [facility] in [place] pending bed availability. She was denied at multiple other hospitals given their current bed situations. Her CBC shows a mild leukocytosis of 12 but is otherwise unremarkable. Her BMP shows mild hypokalemia with a potassium of 3.0, her serum bicarb is 34, her serum creatinine is within normal limits and her blood glucose level was mildly elevated at 228. She is not a known diabetic at baseline. I personally was unable to get any history from her as she was intubated and sedated at the point of my examination. She will be admitted to ICU pending transfer to [facility]. I was unable to obtain personal social history, tobacco/alcohol/substance abuse history, surgical history, or general medical history personally from the patient given the fact she was intubated and sedated. [facility] Medical History unable to obtain Home Medications pantoprazole 40 mg PO DAILY #30 tab 10/06/19 [Rx Last Taken Unknown] Allergy/AdvReac Type Severity Reaction Status Date / Time aspirin Allergy facial Verified 10/04/19 07:25 swelling as a child formaldehyde Allergy Shortness Verified 10/04/19 07:25 of breath procaine [From Novocain] Allergy Angioedema Verified 10/04/19 07:25 chocolate flavor AdvReac Diarrhea Verified 10/04/19 07:25 cinnamon AdvReac Upset Verified 10/04/19 07:25 Stomach cobalt AdvReac Nausea/Vom/ Verified 10/04/19 07:25 Diarrhea yaa AdvReac Upset Verified 10/04/19 07:25 Stomach perfume AdvReac difficulty Verified 10/04/19 07:25 breathing pseudoephedrine AdvReac elevated Verified 10/04/19 07:25 [From Sudafed] heart rate ANTIBIOTICS AdvReac Nausea Uncoded 10/04/19 07:25 steroids AdvReac nausea/ears Uncoded 10/04/19 07:25 ringing Social History Smoking Status: Never smoker ROS Review of Systems ROS Unobtainable: due to endotracheal tube Vital Signs Vital Signs Vital Signs: 05/13/21 18:06 05/13/21 18:12 05/13/21 18:41 Temperature 97.1 F L 97.1 F L Temperature Source Temporal Temporal Pulse Rate 114 H 114 H 108 H Respiratory Rate 34 H 34 H 16 Respiratory Effort Labored Accessory Muscle Use Nasal Flaring Retracting Splinting Head Bobbing Respiratory Depth Deep Respiratory Pattern Tachypnea Gasping Blood Pressure 164/120 H 164/120 H Blood Pressure Mean 134 134 Pulse Ox 97 97 Oxygen Delivery Method Venturi Mask Venturi Mask Oxygen Flow Rate (L/min) 6 6 Fraction of Inspired Oxygen (FIO2) 05/13/21 19:18 05/13/21 20:02 05/13/21 20:07 Temperature Temperature Source Pulse Rate 107 H 110 H Respiratory Rate 20 H 19 H Respiratory Effort Short of Breath Respiratory Depth Shallow Respiratory Pattern Tachypnea Blood Pressure 153/105 H 108/75 Blood Pressure Mean 121 86 Pulse Ox 99 100 Oxygen Delivery Method Non-Rebreather Ambu-Bag Oxygen Flow Rate (L/min) 15 Fraction of Inspired Oxygen (FIO2) 05/13/21 20:42 05/13/21 20:52 05/13/21 21:05 Temperature Temperature Source Pulse Rate 90 88 93 Respiratory Rate 14 16 15 Respiratory Effort Respiratory Depth Respiratory Pattern Blood Pressure 116/87 H 114/84 H 119/90 H Blood Pressure Mean 96 94 99 Pulse Ox 98 98 Oxygen Delivery Method Mechanical Ventilator Oxygen Flow Rate (L/min) Fraction of Inspired Oxygen (FIO2) 40 05/13/21 21:19 05/13/21 21:25 05/13/21 21:35 Temperature 97.8 F Temperature Source Temporal Pulse Rate 85 85 Respiratory Rate 14 14 Respiratory Effort Respiratory Depth Respiratory Pattern Normal Blood Pressure 117/90 H 118/91 H Blood Pressure Mean 99 100 Pulse Ox 100 100 100 Oxygen Delivery Method Mechanical Ventilator Mechanical Ventilator Oxygen Flow Rate (L/min) Fraction of Inspired Oxygen (FIO2) 40 40 40 05/13/21 21:50 05/13/21 22:10 05/13/21 22:49 Temperature Temperature Source Pulse Rate 81 78 80 Respiratory Rate 15 14 14 Respiratory Effort Respiratory Depth Respiratory Pattern Blood Pressure 120/92 H 118/94 H 112/89 H Blood Pressure Mean 101 102 96 Pulse Ox 100 100 100 Oxygen Delivery Method Mechanical Ventilator Mechanical Ventilator Mechanical Ventilator Oxygen Flow Rate (L/min) Fraction of Inspired Oxygen (FIO2) 40 40 40 05/14/21 00:00 05/14/21 00:53 05/14/21 00:58 Temperature 98.2 F Temperature Source Temporal Pulse Rate 79 79 79 Respiratory Rate 14 14 14 Respiratory Effort Respiratory Depth Respiratory Pattern Normal Blood Pressure 118/97 H 116/96 H Blood Pressure Mean 104 102 Pulse Ox 100 100 100 Oxygen Delivery Method Mechanical Ventilator Mechanical Ventilator Oxygen Flow Rate (L/min) Fraction of Inspired Oxygen (FIO2) 30 525 25 Weight Weight: 37.5 kg Body Mass Index (BMI) 13.7 Physical Exam Const Constitutional Narrative: Cachectic, upper middle-aged white female who appears older than stated age lying in bed with a 7.[address] and 24 at the lips, currently sedated HEENT normocephalic, head/scalp atraumatic and moist oral mucous membranes Eyes PERRL and conjunctivae normal Eyes Narrative: No scleral icterus Neck no lymphadenopathy, supple, no JVD and no carotid bruits Neck Narrative: Dilated neck veins, trachea midline Resp normal respiratory effort, no retractions and no use of accessory muscles Resp Narrative: Rhonchi right base with inspiratory wheezes Auscultation: rhonchi and wheezes Cardio regular rate, regular rhythm, S1 normal heart sound, S2 normal heart sound, no murmurs, no rub, no gallops, no clicks and no JVD GI normal to inspection, nondistended, normoactive bowel sounds, soft to palpation, non-tender and non-distended Extremity no clubbing, cyanosis or edema Extremity Narrative: Markedly decreased lean muscle mass Peripheral Pulses: Yes pulses 2+ throughout Skin no rashes or lesions noted, no wounds, skin turgor normal, no jaundice, no petechiae and no mottling Neuro Neuro Narrative: Reflexes 2+ upper and lower extremities, no clonus, Babinski normal Psych Psych Narrative: Unable to assess Results Lab / Micro Data Attestation: I reviewed the patient's lab results. Result Diagrams: 05/13/21 18:45 05/13/21 18:45 Labs: Laboratory Results - last 24 hr 05/13/21 18:45: WBC 12.0 H, RBC 4.01 L, Hgb 12.3, Hct 38.2, MCV 95.3, MCH 30.7, MCHC 32.2, RDW Std Deviation 51.7 H, RDW Coeff of Maribell 14.7 H, Plt Count 414, MPV 8.8, Immature Gran % (Auto) 3.400 H, Neut % (Auto) 61.9, Lymph % (Auto) 28.4, Phillips % (Auto) 4.7, Eos % (Auto) 0.8, Baso % (Auto) 0.8, Absolute Neuts (auto) 7.4, Absolute Lymphs (auto) 3.41, Nucleated RBC % 0 05/13/21 18:45: D-Dimer Quant (PE/DVT) 0.92 H* 05/13/21 18:45: Sodium 143, Potassium 3.0 L, Chloride 100, Carbon Dioxide 34.0 H , Anion Gap 9, BUN 17, Creatinine 0.93, Estim Creat Clear Calc 35.23, Est GFR (MDRD) Af Amer 78, Est GFR (MDRD) Non-Af 64, BUN/Creatinine Ratio 18.4, Glucose 228 H, Calcium 9.1 Micro: Microbiology 05/13/21 18:50 Nasal Secretion SARS-CoV-2 Antigen (Rapid) - Final Radiology Impression Chest X-Ray 05/13/21 18:33 IMPRESSION: Widening of the upper mediastinum. Recommend chest CTA for further evaluation. Electronically Signed: Serafin Carty MD at 19:32 EDT Tel , Service support , Chest X-Ray 05/13/21 20:07 IMPRESSION: 1. Endotracheal tube as described. 2. No other interval change. Electronically Signed: Ar Cuevas DO at 20:48 EDT Tel [phone], Service support , Chest CTA 05/13/21 20:12 IMPRESSION: 1. No pulmonary embolus. 2. No aortic dissection or aneurysm. 3. Markedly dilated esophagus filled with debris and fluid. Alternatively, this could represent a gastric pull-up procedure in the proper clinical setting. No history of esophageal cancer surgery is provided 4. No acute pulmonary disease. Electronically Signed: Ar Cuevas DO at 21:27 EDT Tel [phone], Service support , Assessment & Plan Assessment/Plan (1) Food impaction of esophagus: (2) Acute respiratory failure with hypoxia: (3) Hypokalemia: (4) Severe malnutrition: PLAN: Acute hypoxic respiratory failure secondary to esophageal food impaction/possible aspiration -Patient intubated for airway protection -We will need to remain intubated until esophageal issues have been resolved -Check sputum culture -Start Unasyn -Pulmonary toilet -Consult critical care medicine/pulmonary Esophageal food impaction -Etiology unknown -It appears on exam with CT that this may be more of a chronic problem than acute given the amount of food in the esophagus and stomach -Given the extensiveness it was felt prudent that the patient be transferred to a place where CT surgery is available -We will consult GI -Awaiting transfer to [facility] when bed available Hypokalemia -40 mEq IV potassium replacement -Recheck in a.m. -Check a.m. magnesium level GERD -Patient is on Protonix 40 mg at home -Will continue with IV Protonix 40 mg daily Hyperglycemia -Suspect this may be stress reactive elevation -If blood sugar remains elevated on a.m. BMP would consider starting sliding scale insulin -No documented history of diabetes Severe malnutrition/underweight -BMI is 13.8 on admission, patient has temporal wasting and decreased lean muscle mass -We will consult dietitian -Etiology of weight loss unclear as I was unable to discuss this with the patient DVT prophylaxis -Heparin 5000 units twice daily -SCDs CODE STATUS -Full code Charges/Coding Visit Charges Inpatient E&M: 57528 Init Hosp L3
--- NOTE | 2021-05-14 01:37 | ED.RN ---
report called to RAIF Tobias
--- NOTE | 2021-05-14 01:57 | ED.RN ---
ATTEMPTED TRANSFER TO [facility], [facility], [facility] AND [facility] ALL THEIR HOSPITALS ARE FULL AND NOT ABLE TO ACCEPT PATIENT AT THIS TIME
[2021-05-14] MEDS: 0.9% Normal Saline 1,000 ML 75 ML IV ×2 (03:21→16:13)
[2021-05-14 03:35] LABS: Base Excess 3 mmol/L (-2 to +2); Bicarbonate 26.1 mmol/L (22-26); Blood Gas Specimen Type ART; FI02 21; Mode AC; O2 Delivery Device Adult Vent; PEEP 5; PO2 170 mmHG (75-100); RR 14; SITE L Radial; SO2 100 % (95-99); Total Carbon Dioxide 27 mmol/L; Vt 400; pCO2 31.9 mmHg (35-45); pH 7.52 (7.35-7.45)
[2021-05-14] MEDS: Propofol 10MG/Ml 1,000 MG/100 ML Bottle 11.3 MG CONT INF (03:39)
[2021-05-14 04:02] LABS: Absolute Lymphocyte Count 1.57 X10^3/uL (0.83-4.51); Basophil# 0.06 X10^3/uL; Basophil% 0.4 % (0-1); Hemoglobin 11.9 g/dL (12.0-15.0); Lymphocyte # 1.57 X10^3/ul (0.83-4.51); Lymphocyte % 9.5 % (19-41); Mean Corp Hgb Conc 32.2 g/dL (32-36); Mean Corpuscular Hgb 30.5 pg (27.0-32.0); Mean Corpuscular Volume 94.9 fL (81-99); Mean Platelet Vol. 8.4 fl (6.2-12.0); Monocyte% 4.3 % (0-10); NRBC Flagged by Analyzer 0 % (0-5); Neutrophil # 13.98 X10^3/uL (2.7-7.7); Neutrophil % 84.9 % (47-70); Platelet Count 346 K/mm3 (150-450); RBC Distribution Width CV 14.7 % (11.6-14.6); RBC Distribution Width SD 51.7 fl (35.1-43.9); White Blood Count 16.5 K/mm3 (4.4-11.0)
[2021-05-14 04:53] LABS: ALB/GLOB Ratio 0.9 RATIO (0.9-2.4); AST(SGOT) 94 U/L (15-37); Alanine Aminotransfer ALT/SGPT 77 U/L (13-56); Albumin, Serum 3.1 g/dL (3.2-5.0); Alkaline Phosphatase 78 U/L (45-117); Anion Gap 12 (5-15); BUN 14 mg/dL (7-18); BUN/Creat Ratio 16.9 RATIO (10-20); Chloride 104 mmol/L (98-107); Creatinine, Serum 0.83 mg/dL (0.55-1.02); EST Glomerular Filtration Rate 73 mL/min (>60); Est Glom Filt Rate - Afr Amer 89 mL/min (>60); Estimated Creatinine Clearance 40.73 ml/min; Globulin 3.6 g/dL (2.2-4.2); Glucose 161 mg/dL (74-106); Magnesium 1.9 mg/dL (1.6-2.6); Phosphorus 2.4 mg/dL (2.5-4.9); Potassium 2.6 mmol/L (3.5-5.1); Protein, Total 6.7 g/dL (6.4-8.2); Sodium Level 144 mmol/L (136-145); Thyroid Stim Hormone (TSH) 1.56 uIU/mL (0.358-3.74)
[2021-05-14] MEDS: Potassium Chloride 10mEq/100mL 10 MEQ/100 ML IV.SOLN. 100 MEQ IV BOLUS ×8 (04:56→12:45)
--- NOTE | 2021-05-14 06:05 | RAD_ITS ---
EXAM: XR Chest, 1 View CLINICAL INDICATION: 65 years old, Female; ET placement TECHNIQUE: Frontal view of the chest. This report was created using youwho report generation technology. COMPARISON: chest x-ray obtained yesterday. FINDINGS: Lungs and pleural spaces: Blunting of the left costophrenic angle may be due to a small amount of fluid or pleural thickening. No pneumothorax. Heart: Unremarkable. Cardiac silhouette not enlarged. Mediastinum: Distended and fluid-filled esophagus versus esophagectomy with gastric pull-through procedure. Bones/joints: Unremarkable. Soft tissues: Unremarkable. Tubes, lines and devices: The endotracheal tube (ETT) is in satisfactory position with tip 7.9 cm above the crow. RAD/Chest 1 View (Portable) IMPRESSION: Distended and fluid-filled esophagus versus esophagectomy with gastric pull-through procedure. Correlation with history would be helpful. ASSESSMENT: ABNORMAL report - There are abnormal findings in this report which may be related or unrelated to the reason for the exam. Electronically Signed: Dusty Cheek MD at 6:46 EDT Tel , Service support ,
--- NOTE | 2021-05-14 06:36 | CON.PCM.CC_ITS ---
Assessment & Plan Assessment/Plan (1) Acute respiratory failure with hypoxia: (2) Esophageal dilatation: PLAN: RECOMMENDATIONS: 1. Continue patient on assist control mode mechanical ventilation and wean FiO2 for saturations greater than 90%. 2. Obtain repeat chest x-ray this morning. 3. Aggressive electrolyte repletion. 4. Continue antimicrobials as ordered. 5. Continue appropriate GI prophylaxis. 6. Awaiting transfer to tertiary care facility. IMPRESSIONS: 1. Acute hypoxemic respiratory failure The patient was initially intubated in the emergency department after she presented with dyspnea and hypoxemia. Subsequent work-up, including CTA chest, revealed significant esophageal dilation, which was leading to compression of adjacent mediastinal and airway structures. The patient was felt to be too high risk to undergo any form of upper endoscopic procedure by GI. It was recommended that she be transferred to a tertiary care facility. For now, the patient will be continued on assist control mode mechanical ventilation. She will also be continued on Unasyn to cover for potential aspiration. Plan to continue appropriate GI prophylaxis. 2. Significant esophageal dilation The patient appears to have a large intrathoracic hernia with significant esophageal dilation and retain gastric material. The patient was felt to be high risk to undergo any form of endoscopic procedure to reduce the hernia. Therefore, it was recommended that she be transferred to a tertiary care facility with thoracic surgery availability. We are awaiting bed availability for transfer. 3. Hypokalemia Aggressive electrolyte repletion as ordered. Recheck levels status post rep letion. 4. Malnutrition/homelessness Complicates care, management, recovery and prognosis. Continue supportive measures as noted above. TIME: 42 minutes of critical care time, independent of procedures, was spent addressing the patient's acute hypoxemic respiratory failure, significant esophageal dilation, hypokalemia, review of all data and collaboration with the care team. ([id number]) HPI Consult Data Date of Consult: 05/14/21 HPI Narrative Reason for Consultation: Acute hypoxemic respiratory failure HPI Narrative: The patient is a 65-year-old female, with a history as outlined below, who presented to the emergency department via EMS on May 13 with rather acute onset shortness of breath and respiratory distress approximately 3 hours after eating fish. The patient is currently homeless and resides within a local women's nursing home. History pertinent to her hospitalization was obtained primarily via chart review, as the patient is currently intubated. The patient has been admitted to the hospital in the past with intractable nausea and vomiting. On presentation to the emergency department, the patient was noted to be afebrile and hemodynamically stable. She was, nevertheless tachycardic and tachypneic. She was hypoxemic as well, initially requiring a Ventimask and then later a nonrebreather. Initial laboratory evaluation revealed a white blood cell count of 12,000. D-dimer was noted to be 0.92. Chemistry profile was notable for a sodium of 143, potassium of 3.0, bicarbonate of 34 and normal creatinine. I was initially contacted by the emergency department provider over concerns for potential foreign body aspiration. However, upon my review of the patient's chest x-ray, which revealed a widened mediastinum, my recommendation was to obtain a CT chest. Nevertheless, the patient was unable to lay supine to facilitate completion of the chest imaging. In light of her clinical decompensation, hypoxemia and the need to complete additional work-up, my recommendation was to intubate the patient for airway protection. Subsequent CTA chest showed no evidence for PE. However, there was significant dilation of the esophagus with air and gastric contents which was causing local compression of adjacent mediastinal structures and airway. After reviewing the CTA chest and after discussing the case with gastroenterology, the recommendation was to transfer the patient to a tertiary care facility. However, there were no beds available at any of the local tertiary care facilities and the patient ultimately had to be admitted, pending bed availability. [facility] Medical History unable to obtain Home Medications pantoprazole 40 mg PO DAILY #30 tab 10/06/19 [Rx Last Taken Unknown] Allergy/AdvReac Type Severity Reaction Status Date / Time aspirin Allergy facial Verified 10/04/19 07:25 swelling as a child formaldehyde Allergy Shortness Verified 10/04/19 07:25 of breath procaine [From Novocain] Allergy Angioedema Verified 10/04/19 07:25 chocolate flavor AdvReac Diarrhea Verified 10/04/19 07:25 cinnamon AdvReac Upset Verified 10/04/19 07:25 Stomach cobalt AdvReac Nausea/Vom/ Verified 10/04/19 07:25 Diarrhea yaa AdvReac Upset Verified 10/04/19 07:25 Stomach perfume AdvReac difficulty Verified 10/04/19 07:25 breathing pseudoephedrine AdvReac elevated Verified 10/04/19 07:25 [From Sudafed] heart rate ANTIBIOTICS AdvReac Nausea Uncoded 10/04/19 07:25 steroids AdvReac nausea/ears Uncoded 10/04/19 07:25 ringing Social History Smoking Status: Never smoker ROS Review of Systems ROS Unobtainable: due to endotracheal tube Physical Exam Const no apparent distress General Appearance: comfortable, frail and patient mechanically ventilated Nutritional Appearance: cachectic HEENT normocephalic and head/scalp atraumatic Mouth: endotracheal tube in place Eyes PERRL and conjunctivae normal Neck supple General: trachea midline Resp Auscultation: diminished lung sounds; Negative for rales, rhonchi or wheezes Cardio regular rate and regular rhythm GI soft to palpation Inspection: Negative for abdominal distention Extremity no clubbing, cyanosis or edema Skin no rashes or lesions noted Neuro Sensorium / Orientation: sedated on vent Lab / Micro Data Result Diagrams: 05/14/21 03:50 05/14/21 03:50 Labs: Laboratory Results - last 24 hr 05/13/21 18:45: WBC 12.0 H, RBC 4.01 L, Hgb 12.3, Hct 38.2, MCV 95.3, MCH 30.7, MCHC 32.2, RDW Std Deviation 51.7 H, RDW Coeff of Maribell 14.7 H, Plt Count 414, MPV 8.8, Immature Gran % (Auto) 3.400 H, Neut % (Auto) 61.9, Lymph % (Auto) 28.4, Beckham % (Auto) 4.7, Eos % (Auto) 0.8, Baso % (Auto) 0.8, Absolute Neuts (auto) 7.4, Absolute Lymphs (auto) 3.41, Nucleated RBC % 0 05/13/21 18:45: D-Dimer Quant (PE/DVT) 0.92 H* 05/13/21 18:45: Sodium 143, Potassium 3.0 L, Chloride 100, Carbon Dioxide 34.0 H , Anion Gap 9, BUN 17, Creatinine 0.93, Estim Creat Clear Calc 35.23, Est GFR (MDRD) Af Amer 78, Est GFR (MDRD) Non-Af 64, BUN/Creatinine Ratio 18.4, Glucose 228 H, Calcium 9.1 05/14/21 03:50: WBC 16.5 H, RBC 3.90 L, Hgb 11.9 L, Hct 37.0, MCV 94.9, MCH 30.5, MCHC 32.2, RDW Std Deviation 51.7 H, RDW Coeff of Maribell 14.7 H, Plt Count 346, MPV 8.4, Immature Gran % (Auto) 0.900, Neut % (Auto) 84.9 H, Lymph % (Auto) 9.5 L, Beckham % (Auto) 4.3, Eos % (Auto) 0.0, Baso % (Auto) 0.4, Absolute Neuts (auto) 14.0 H, Absolute Lymphs (auto) 1.57, Nucleated RBC % 0 05/14/21 03:50: Sodium 144, Potassium 2.6 L*, Chloride 104, Carbon Dioxide 28.0, Anion Gap 12, BUN 14, Creatinine 0.83, Estim Creat Clear Calc 40.73, Est GFR (MDRD) Af Amer 89, Est GFR (MDRD) Non-Af 73, BUN/Creatinine Ratio 16.9, Glucose 161 H, Calcium 8.0 L, Phosphorus 2.4 L, Magnesium 1.9, Total Bilirubin 0.50, AST 94 H, ALT 77 H, Alkaline Phosphatase 78, Total Protein 6.7, Albumin 3.1 L, Globulin 3.6, Albumin/Globulin Ratio 0.9, TSH 1.56 Micro: Microbiology 05/13/21 18:50 Nasal Secretion SARS-CoV-2 Antigen (Rapid) - Final ABG Data ABG results: ABG 05/14/21 03:30 Specimen Type ART Sample Site L Radial pH 7.52 H Bicarbonate Actual 26.1 H Total CO2 27 Base Excess 3 H O2 Saturation 100 H O2 % 21 ABG pCO2 31.9 L ABG pO2 170 H Benjamin Test N/A Respiration Rate 14 O2 Delivery Device Adult Vent Vent Mode AC Tidal Volume 400 POC PEEP 5 Radiology Impression Chest X-Ray 05/13/21 18:33 IMPRESSION: Widening of the upper mediastinum. Recommend chest CTA for further evaluation. Electronically Signed: Serafin Carty MD at 19:32 EDT Tel , Service support , Chest X-Ray 05/13/21 20:07 IMPRESSION: 1. Endotracheal tube as described. 2. No other interval change. Electronically Signed: Ar Cuevas DO at 20:48 EDT Tel [phone], Service support , Chest CTA 05/13/21 20:12 IMPRESSION: 1. No pulmonary embolus. 2. No aortic dissection or aneurysm. 3. Markedly dilated esophagus filled with debris and fluid. Alternatively, this could represent a gastric pull-up procedure in the proper clinical setting. No history of esophageal cancer surgery is provided 4. No acute pulmonary disease. Electronically Signed: Ar Cuevas DO at 21:27 EDT Tel [phone], Service support , Charges/Coding Procedures Hospitalists Procedures: 11537 Critial Care 1st Hr
--- NOTE | 2021-05-14 07:18 | PN.HOSP_ITS ---
Subjective Subjective Patient is a 65-year-old lady who presented to the emergency department with sudden onset of respiratory distress. She did complain of a sensation of food being stuck in her throat. She was found to be markedly hypoxic with oxygen saturation measured at 67% on room air was placed on supplemental oxygen and brought to the ED. Checks x-ray obtained demonstrated widened mediastinum and subsequently underwent a CT after intubation. CT demonstrated markedly dilated esophagus filled with debris and fluid. Patient was admitted to the intensive care unit after attempt had been made to have patient transferred to a tertiary care center for thoracic surgery evaluation Objective Data Objective Data Vital Signs: Vital Signs Temp Pulse Resp BP Pulse Ox 97.6 F L 70 12 136/97 H 100 05/14/21 04:00 05/14/21 07:00 05/14/21 07:00 05/14/21 07:00 05/14/21 07:00 Oxygen Flow Rate (L/min) 15 Oxygen Delivery Method Mechanical Ventilator Weight: 38.7 kg Body Mass Index (BMI) 14.6 Intake & Output: Intake and Output for Last 24 Hours 05/12/21 05/13/21 05/14/21 23:59 23:59 23:59 Intake Total 15.03 / 15.03 1395.58 / 1395.58 Output Total 1080 / 1080 Balance 15.03 / 15.03 315.58 / 315.58 Lab / Micro Data Result Diagrams: 05/14/21 03:50 05/14/21 03:50 Labs: Laboratory Results - last 24 hr 05/13/21 18:45: WBC 12.0 H, RBC 4.01 L, Hgb 12.3, Hct 38.2, MCV 95.3, MCH 30.7, MCHC 32.2, RDW Std Deviation 51.7 H, RDW Coeff of Maribell 14.7 H, Plt Count 414, MPV 8.8, Immature Gran % (Auto) 3.400 H, Neut % (Auto) 61.9, Lymph % (Auto) 28.4, [place] % (Auto) 4.7, Eos % (Auto) 0.8, Baso % (Auto) 0.8, Absolute Neuts (auto) 7.4, Absolute Lymphs (auto) 3.41, Nucleated RBC % 0 05/13/21 18:45: D-Dimer Quant (PE/DVT) 0.92 H* 05/13/21 18:45: Sodium 143, Potassium 3.0 L, Chloride 100, Carbon Dioxide 34.0 H , Anion Gap 9, BUN 17, Creatinine 0.93, Estim Creat Clear Calc 35.23, Est GFR (MDRD) Af Amer 78, Est GFR (MDRD) Non-Af 64, BUN/Creatinine Ratio 18.4, Glucose 228 H, Calcium 9.1 05/14/21 03:50: WBC 16.5 H, RBC 3.90 L, Hgb 11.9 L, Hct 37.0, MCV 94.9, MCH 30.5, MCHC 32.2, RDW Std Deviation 51.7 H, RDW Coeff of Maribell 14.7 H, Plt Count 346, MPV 8.4, Immature Gran % (Auto) 0.900, Neut % (Auto) 84.9 H, Lymph % (Auto) 9.5 L, [place] % (Auto) 4.3, Eos % (Auto) 0.0, Baso % (Auto) 0.4, Absolute Neuts (auto) 14.0 H, Absolute Lymphs (auto) 1.57, Nucleated RBC % 0 05/14/21 03:50: Sodium 144, Potassium 2.6 L*, Chloride 104, Carbon Dioxide 28.0, Anion Gap 12, BUN 14, Creatinine 0.83, Estim Creat Clear Calc 40.73, Est GFR (MD ZAYAS) Af Amer 89, Est GFR (MDRD) Non-Af 73, BUN/Creatinine Ratio 16.9, Glucose 161 H, Calcium 8.0 L, Phosphorus 2.4 L, Magnesium 1.9, Total Bilirubin 0.50, AST 94 H, ALT 77 H, Alkaline Phosphatase 78, Total Protein 6.7, Albumin 3.1 L, Globulin 3.6, Albumin/Globulin Ratio 0.9, TSH 1.56 Micro: Microbiology 05/13/21 18:50 Nasal Secretion SARS-CoV-2 Antigen (Rapid) - Final ABG Data ABG results: ABG 05/14/21 03:30 Specimen Type ART Sample Site L Radial pH 7.52 H Bicarbonate Actual 26.1 H Total CO2 27 Base Excess 3 H O2 Saturation 100 H O2 % 21 ABG pCO2 31.9 L ABG pO2 170 H Benjamin Test N/A Respiration Rate 14 O2 Delivery Device Adult Vent Vent Mode AC Tidal Volume 400 POC PEEP 5 Radiography Diagnostic Testing: Radiology Impression Chest X-Ray 05/13/21 18:33 IMPRESSION: Widening of the upper mediastinum. Recommend chest CTA for further evaluation. Electronically Signed: Serafin Carty MD at 19:32 EDT Tel , Service support , Chest X-Ray 05/13/21 20:07 IMPRESSION: 1. Endotracheal tube as described. 2. No other interval change. Electronically Signed: Ar Cuevas DO at 20:48 EDT Tel [phone], Service support , Chest CTA 05/13/21 20:12 IMPRESSION: 1. No pulmonary embolus. 2. No aortic dissection or aneurysm. 3. Markedly dilated esophagus filled with debris and fluid. Alternatively, this could represent a gastric pull-up procedure in the proper clinical setting. No history of esophageal cancer surgery is provided 4. No acute pulmonary disease. Electronically Signed: Ar Cuevas DO at 21:27 EDT Tel [phone], Service support , Chest X-Ray 05/14/21 06:05 IMPRESSION: Distended and fluid-filled esophagus versus esophagectomy with gastric pull-through procedure. Correlation with history would be helpful. ASSESSMENT: ABNORMAL report - There are abnormal findings in this report which may be related or unrelated to the reason for the exam. Electronically Signed: Dusty Cheek MD at 6:46 EDT Tel , Service support , Physical Exam Narrative GENERAL: Sedated on the vent HEENT ET tube in place EYES; Anicteric, Normal Conjunctiva NECK; supple, normal thyroid, RESPIRATORY: Diminished to auscultation CARDIOVASCULAR: Regular S1 S2, GI: soft, normoactive bowel sounds, : No Renal angle tenderness; EXTREMITIES: No edema, no clubbing, MUSCULOSKELETAL: no muscle waisting NEURO: Sedated on the vent SKIN: No Rash Assessment & Plan Assessment/Plan (1) Food impaction of esophagus: (2) Acute respiratory failure with hypoxia: (3) Hypokalemia: (4) Severe malnutrition: PLAN: Patient is a 65-year-old lady who presented to the emergency department with sudden onset of respiratory distress. She did complain of a sensation of food being stuck in her throat. She was found to be markedly hypoxic with oxygen saturation measured at 67% on room air was placed on supplemental oxygen and brought to the ED. Checks x-ray obtained demonstrated widened mediastinum and subsequently underwent a CT after intubation. CT demonstrated markedly dilated esophagus filled with debris and fluid. Patient was admitted to the intensive care unit after attempt had been made to have patient transferred to a tertiary care center for thoracic surgery evaluation 1. Acute hypoxic respiratory failure ?Secondary to esophageal food impaction with aspiration pneumonia. Patient was intubated in the ED for airway protection admitted to the intensive care unit started on broad-spectrum antibiotic therapy consult placed to special education aide 2. Esophageal food impaction ?CT obtained demonstrated Markedly dilated esophagus filled with debris and fluid.. Admitted to the intensive care unit pending transfer to a tertiary care center 3. Severe hypokalemia ?Corrected per protocol serial monitoring of electrolytes ordered 4. Severe protein calorie malnutrition ?As evidenced by low BMI of 14.6, low albumin as well as muscle wasting 5. GERD -Patient is on Protonix 40 mg at home did continue with IV Protonix 6. DVT prophylaxis ?SC heparin Charges/Coding Visit Charges Inpatient E&M: 93828 Subs Hosp L3
[2021-05-14] MEDS: Heparin Injection (Vial) 5,000 UNIT/ML VIAL 5000 UNIT SC ×2 (10:39→22:09)
--- NOTE | 2021-05-14 13:05 | CASEMGMT ---
Addendum entered by Irene Olguin 05/14/21 14:09: Social Work SW received call from pt's sister Kyung Linton. Kyung states that she has been estranged from pt for many years, is afraid of pt and does not feel comfortable making medical decisions for pt nor does she want listed as a jewelry salesperson. Kyung confirms that both parents are , there are no other siblings, pt has no children and pt has been from Lucas Shepherd for many years and he has since remarried. Kyung also states there are no other family members that would be involved with pt. Referral made to [facility] and Ankush updated on pt situation. Ankush requests to be notified when pt is transferred. APRIL will give handoff to [facility] when pt is transferred. SW received phone call from Naima Collier ([phone]) who states she is a friend of pt. They met in the [facility] at [facility] and Naima expressing concern for pt and that pt has no family and is going through a difficult divorce. Naima unsure of name of pt (pt sister indicates pt has been for years). Naima states she is only friend pt has and is inquiring about pt status. APRIL explained that because pt did not list her as contact, no information could be given. APRIL conferred with Lead Radio Communications Mechanician, WESTLEY Olivares. At this time no other person to list as next of kin. ISIDRO Lawson Original Note: Social Work SW attempting to locate family. Chart reviewed. No Health Care POA listed. APRIL spoke with Itzel Boyle, pt's listed next of kin. Itzel states that she does not have a relationship with pt. Itzel lived near pt's mother and assisted mother and knows pt but does not have a relationship with her. Itzel states pt mother and father are , pt has no children, pt has an ex Lucas Shepherd and a sister Kyung Ortiz Mast whom Itzel states pt is estranged from. APRIL requested Kyung Ortiz's phone number and Itzel states she will try to find it and call this SW back. APIRL spoke with Carlos, Public Information Officer at [address] [place] [address] where pt is currently staying. Pt gave contact information of Lyla Norton ([phone]). SW called this number with no answer and no VM. Carlos gave number for Lucas Shepherd stating he believed pt was still and divorce was pending. APRIL placed call to Lucas Shepherd but it was a wrong number. No other contact information for him. APRIL will await return call from [facility] with contact information for pt sister Kyung Alarcon. ISIDRO Lawson
[2021-05-14] MEDS: Propofol 10MG/Ml 1,000 MG/100 ML Bottle 4.5 MG CONT INF (16:13)
[2021-05-15] VITALS (29 sets, daily range): BP systolic 94–138; BP diastolic 65–86; PULSE 57–78; RESP 12–61; TEMP 36.2–36.6; O2SAT 98–100
[2021-05-15] MEDS: Chlorhexidine 15 ML PO ×2 (02:00→10:08)
[2021-05-15 04:08] LABS: Absolute Lymphocyte Count 1.73 X10^3/uL (0.83-4.51); Absolute Neutrophil Count 8.1 X10^3/uL (2.0-7.7); Basophil# 0.03 X10^3/uL; Basophil% 0.3 % (0-1); Eosinophil# 0.02 X10^3/uL; Eosinophils% 0.2 % (0-5); Hematocrit 37.3 % (37-47); Lymphocyte # 1.73 X10^3/ul (0.83-4.51); Lymphocyte % 15.9 % (19-41); Mean Corp Hgb Conc 32.2 g/dL (32-36); Mean Corpuscular Hgb 30.5 pg (27.0-32.0); Mean Corpuscular Volume 94.9 fL (81-99); Mean Platelet Vol. 8.6 fl (6.2-12.0); Monocyte# 0.95 X10^3/uL; Monocyte% 8.7 % (0-10); NRBC Flagged by Analyzer 0 % (0-5); Neutrophil # 8.11 X10^3/uL (2.7-7.7); Neutrophil % 74.4 % (47-70); Platelet Count 298 K/mm3 (150-450); RBC Distribution Width CV 15.9 % (11.6-14.6); RBC Distribution Width SD 55.9 fl (35.1-43.9); Red Blood Count 3.93 M/mm3 (4.2-5.4); White Blood Count 10.9 K/mm3 (4.4-11.0)
[2021-05-15 04:28] LABS: ALB/GLOB Ratio 0.7 RATIO (0.9-2.4); AST(SGOT) 39 U/L (15-37); Alanine Aminotransfer ALT/SGPT 52 U/L (13-56); Albumin, Serum 2.5 g/dL (3.2-5.0); Alkaline Phosphatase 65 U/L (45-117); Anion Gap 8 (5-15); BUN 9 mg/dL (7-18); BUN/Creat Ratio 13.3 RATIO (10-20); Chloride 106 mmol/L (98-107); Creatinine, Serum 0.68 mg/dL (0.55-1.02); EST Glomerular Filtration Rate 92 mL/min (>60); Est Glom Filt Rate - Afr Amer 112 mL/min (>60); Estimated Creatinine Clearance 35.64 ml/min; Globulin 3.4 g/dL (2.2-4.2); Glucose 85 mg/dL (74-106); Magnesium 1.8 mg/dL (1.6-2.6); Potassium 3.7 mmol/L (3.5-5.1); Protein, Total 5.9 g/dL (6.4-8.2); Sodium Level 141 mmol/L (136-145)
--- NOTE | 2021-05-15 05:34 | PN.CC_ITS ---
Assessment & Plan Assessment/Plan (1) Acute respiratory failure with hypoxia: (2) Esophageal dilatation: PLAN: RECOMMENDATIONS: 1. Continue patient on assist control mode mechanical ventilation and wean FiO2 for saturations greater than 90%. 2. Continue antimicrobials as ordered. 3. Continue appropriate GI prophylaxis. 4. Awaiting transfer to tertiary care facility. IMPRESSIONS: 1. Acute hypoxemic respiratory failure The patient was initially intubated in the emergency department after she presented with dyspnea and hypoxemia. Subsequent work-up, including CTA chest, revealed significant esophageal dilation, which was leading to compression of adjacent mediastinal and airway structures. The patient was felt to be too high risk to undergo any form of upper endoscopic procedure by GI. It was recommended that she be transferred to a tertiary care facility. For now, the patient will be continued on assist control mode mechanical ventilation. She will also be continued on Unasyn to cover for potential aspiration. Plan to continue appropriate GI prophylaxis. 2. Significant esophageal dilation The patient appears to have a large intrathoracic hernia with significant esophageal dilation and retain gastric material. The patient was felt to be high risk to undergo any form of endoscopic procedure to reduce the hernia. Therefore, it was recommended that she be transferred to a tertiary care facility with thoracic surgery availability. We are awaiting bed availability for transfer. 3. Malnutrition/homelessness Complicates care, management, recovery and prognosis. Continue supportive measures as noted above. TIME: 32 minutes of critical care time, independent of procedures, was spent addressing the patient's acute hypoxemic respiratory failure, significant esophageal dilation, review of all data and collaboration with the care team. ([id number]) Subjective Subjective The patient was seen and examined at the bedside this morning. Events from the last 24 hours have been reviewed. The patient is currently afebrile, hemodynamically stable and maintaining appropriate oxygen saturations on assist control mode mechanical ventilation with an FiO2 requirement of 21%. The patient remains appropriately sedated on propofol and fentanyl. She is alert and able to follow simple commands. She is currently documented to be overall net +2.3 L for the hospital admission. The patient remains on Unasyn to cover for possible aspiration. She is still awaiting transfer to a tertiary care facility, pending bed availability. Objective Data Objective Data The patient's most recent lab work, culture data and imaging studies have all been personally reviewed. Sputum culture is pending. Vital Signs: Vital Signs Temp Pulse Resp BP Pulse Ox 97.2 F L 62 12 115/76 100 05/15/21 04:00 05/15/21 05:13 05/15/21 05:13 05/15/21 04:00 05/15/21 05:13 Oxygen Flow Rate (L/min) 15 Oxygen Delivery Method Mechanical Ventilator Weight: 40.8 kg Body Mass Index (BMI) 14.6 Intake & Output: Intake and Output for Last 24 Hours 05/13/21 05/14/21 05/15/21 23:59 23:59 23:59 Intake Total . 3789.67 / 3799.17 159.5 / 159.5 Output Total 1580 / 1780 200 / 200 Balance . 2209.67 / 2019.17 -40.5 / -40.5 Medical Nutrition Assessment Dietitian: Malnutrition Criteria Met Start: 05/14/21 12:49 Freq: Status: Active Protocol: Document 05/14/21 12:49 AG (Rec: 05/14/21 12:49 [id number]) Nutrition Malnutrition Evidence of Malnutrition Exists Yes Malnutrition (severe): Chronic Evidenced By Weight Loss (Severe),Physical Changes (Severe) Intake Problem Inadequate Oral Intake Etiology r/t esophageal obstruction Signs/Symptoms as evidenced by inability to consume PO nutrition Status Active Problem Clinical Problem Chronic Disease or Condition Related Malnutrition Etiology severe, chronic malnutrition r /t predicted suboptimal energy intake d/t swallowing dysfunction and/or homelessness Signs/Symptoms as evidenced by severe muscle wasting/fat loss in upper extremities, acromion, clavicle, and orbital region per physical exam; unintentional wt loss of 13kg/ 25% >1 year; BMI 14.6 Status Active Problem Recommendation Dietitian Recommendations/Changes Will provide nutrition support recommendations as indicated. Lab / Micro Data Attestation: I reviewed the patient's lab results. Result Diagrams: 05/15/21 03:45 05/15/21 03:45 Labs: Laboratory Results - last 24 hr 05/15/21 03:45: WBC 10.9, RBC 3.93 L, Hgb 12.0, Hct 37.3, MCV 94.9, MCH 30.5, MCHC 32.2, RDW Std Deviation 55.9 H, RDW Coeff of Maribell 15.9 H, Plt Count 298, MPV 8.6, Immature Gran % (Auto) 0.500, Neut % (Auto) 74.4 H, Lymph % (Auto) 15.9 L, [place] % (Auto) 8.7, Eos % (Auto) 0.2, Baso % (Auto) 0.3, Absolute Neuts (auto) 8.1 H, Absolute Lymphs (auto) 1.73, Nucleated RBC % 0 05/15/21 03:45: Sodium 141, Potassium 3.7, Chloride 106, Carbon Dioxide 27.0, Anion Gap 8, BUN 9, Creatinine 0.68, Estim Creat Clear Calc 35.64, Est GFR (MDRD) Af Amer 112, Est GFR (MDRD) Non-Af 92, BUN/Creatinine Ratio 13.3, Glucose 85, Calcium 8.0 L, Magnesium 1.8, Total Bilirubin 0.40, AST 39 H, ALT 52, Alkaline Phosphatase 65, Total Protein 5.9 L, Albumin 2.5 L, Globulin 3.4, A lbumin/Globulin Ratio 0.7 L Micro: Microbiology 05/14/21 07:20 Sputum, Induced/Lukens Gram Stain - Final 05/13/21 18:50 Nasal Secretion SARS-CoV-2 Antigen (Rapid) - Final Radiography Diagnostic Testing: Radiology Impression Chest X-Ray 05/14/21 06:05 IMPRESSION: Distended and fluid-filled esophagus versus esophagectomy with gastric pull-through procedure. Correlation with history would be helpful. ASSESSMENT: ABNORMAL report - There are abnormal findings in this report which may be related or unrelated to the reason for the exam. Electronically Signed: Dusty Cheek MD at 6:46 EDT Tel , Service support , Physical Exam Const no apparent distress General Appearance: comfortable, frail and patient mechanically ventilated Nutritional Appearance: cachectic HEENT normocephalic and head/scalp atraumatic Mouth: endotracheal tube in place Eyes PERRL and conjunctivae normal Neck supple General: trachea midline Resp Auscultation: diminished lung sounds; Negative for rales, rhonchi or wheezes Cardio regular rate and regular rhythm GI soft to palpation Inspection: Negative for abdominal distention Extremity no clubbing, cyanosis or edema Skin no rashes or lesions noted Neuro Sensorium / Orientation: sedated on vent Charges/Coding Procedures Hospitalists Procedures: 00609 Critial Care 1st Hr
[2021-05-15] MEDS: 0.9% Normal Saline 1,000 ML 75 ML IV ×2 (05:35→20:49)
[2021-05-15] MEDS: Propofol 10MG/Ml 1,000 MG/100 ML Bottle 4.5 MG CONT INF (05:35)
[2021-05-15] MEDS: TITRATION PARAMETER CHANGE 1 EACH IV (06:20)
--- NOTE | 2021-05-15 07:20 | PCM.PN.HOSP ---
Subjective Subjective Patient seen awake on the vent follows appropriate commands. Still awaiting bed prior to transfer to [facility] Objective Data Objective Data Vital Signs: Vital Signs Temp Pulse Resp BP Pulse Ox 97.2 F L 58 L 12 138/74 H 100 05/15/21 04:00 05/15/21 07:12 05/15/21 07:12 05/15/21 06:00 05/15/21 07:12 Oxygen Flow Rate (L/min) 15 Oxygen Delivery Method Mechanical Ventilator Weight: 40.8 kg Body Mass Index (BMI) 14.6 Intake & Output: Intake and Output for Last 24 Hours 05/13/21 05/14/21 05/15/21 23:59 23:59 23:59 Intake Total 15.03 / 15.03 3789.67 / 3799.17 290.74 / 290.74 Output Total 1580 / 1780 200 / 200 Balance 15.03 / 15.03 2209.67 / 2019.17 90.74 / 90.74 Medical Nutrition Assessment Dietitian: Malnutrition Criteria Met Start: 05/14/21 12:49 Freq: Status: Active Protocol: Document 05/14/21 12:49 AG (Rec: 05/14/21 12:49 AG [id number]) Nutrition Malnutrition Evidence of Malnutrition Exists Yes Malnutrition (severe): Chronic Evidenced By Weight Loss (Severe),Physical Changes (Severe) Intake Problem Inadequate Oral Intake Etiology r/t esophageal obstruction Signs/Symptoms as evidenced by inability to consume PO nutrition Status Active Problem Clinical Problem Chronic Disease or Condition Related Malnutrition Etiology severe, chronic malnutrition r /t predicted suboptimal energy intake d/t swallowing dysfunction and/or homelessness Signs/Symptoms as evidenced by severe muscle wasting/fat loss in upper extremities, acromion, clavicle, and orbital region per physical exam; unintentional wt loss of 13kg/ 25% >1 year; BMI 14.6 Status Active Problem Recommendation Dietitian Recommendations/Changes Will provide nutrition support recommendations as indicated. Lab / Micro Data Result Diagrams: 05/15/21 03:45 05/15/21 03:45 Labs: Laboratory Results - last 24 hr 05/15/21 03:45: WBC 10.9, RBC 3.93 L, Hgb 12.0, Hct 37.3, MCV 94.9, MCH 30.5, MCHC 32.2, RDW Std Deviation 55.9 H, RDW Coeff of Maribell 15.9 H, Plt Count 298, MPV 8.6, Immature Gran % (Auto) 0.500, Neut % (Auto) 74.4 H, Lymph % (Auto) 15.9 L, [place] % (Auto) 8.7, Eos % (Auto) 0.2, Baso % (Auto) 0.3, Absolute Neuts (auto) 8.1 H, Absolute Lymphs (auto) 1.73, Nucleated RBC % 0 05/15/21 03:45: Sodium 141, Potassium 3.7, Chloride 106, Carbon Dioxide 27.0, Anion Gap 8, BUN 9, Creatinine 0.68, Estim Creat Clear Calc 35.64, Est GFR (MDRD) Af Amer 112, Est GFR (MDRD) Non-Af 92, BUN/Creatinine Ratio 13.3, Glucose 85, Calcium 8.0 L, Magnesium 1.8, Total Bilirubin 0.40, AST 39 H, ALT 52, Alkaline Phosphatase 65, Total Protein 5.9 L, Albumin 2.5 L, Globulin 3.4, Albumin/Globulin Ratio 0.7 L Micro: Microbiology 05/14/21 07:20 Sputum, Induced/Lukens Gram Stain - Final 05/13/21 18:50 Nasal Secretion SARS-CoV-2 Antigen (Rapid) - Final Physical Exam Narrative GENERAL: Awake on the vent HEENT ET tube in place EYES; Anicteric, Normal Conjunctiva NECK; supple, normal thyroid, RESPIRATORY: Diminished to auscultation CARDIOVASCULAR: Regular S1 S2, GI: soft, normoactive bowel sounds, : No Renal angle tenderness; EXTREMITIES: No edema, no clubbing, MUSCULOSKELETAL: no muscle waisting NEURO: No lateralizing signs SKIN: No Rash Assessment & Plan Assessment/Plan (1) Food impaction of esophagus: (2) Acute respiratory failure with hypoxia: (3) Hypokalemia: (4) Severe malnutrition: PLAN: Patient is a 65-year-old lady who presented to the emergency department with sudden onset of respiratory distress. She did complain of a sensation of food being stuck in her throat. She was found to be markedly hypoxic with oxygen saturation measured at 67% on room air was placed on supplemental oxygen and brought to the ED. Checks x-ray obtained demonstrated widened mediastinum and subsequently underwent a CT after intubation. CT demonstrated markedly dilated esophagus filled with debris and fluid. Patient was admitted to the intensive care unit after attempt had been made to have patient transferred to a tertiary care center for thoracic surgery evaluation 1. Acute hypoxic respiratory failure ?Secondary to esophageal food impaction with aspiration pneumonia. Patient was intubated in the ED for airway protection admitted to the intensive care unit started on broad-spectrum antibiotic therapy consult placed to critical power install technician -05/15/2021. Remains on broad-spectrum antibiotic therapy currently awake on the vent. Awaiting transfer to a tertiary care center 2. Esophageal food impaction ?CT obtained demonstrated Markedly dilated esophagus filled with debris and fluid.. Admitted to the intensive care unit pending transfer to a tertiary care center 3. Severe hypokalemia ?Corrected per protocol serial monitoring of electrolytes ordered 4. Severe protein calorie malnutrition ?As evidenced by low BMI of 14.6, low albumin as well as muscle wasting 5. GERD -Patient is on Protonix 40 mg at home did continue with IV Protonix 6. DVT prophylaxis ?SC heparin Charges/Coding Visit Charges Inpatient E&M: 29270 Subs Hosp L3
[2021-05-15] MEDS: Heparin Injection (Vial) 5,000 UNIT/ML VIAL 5000 UNIT SC (10:08)
[2021-05-15] MEDS: Propofol 10MG/Ml 1,000 MG/100 ML Bottle 4.9 MG CONT INF (16:51)
--- NOTE | 2021-05-15 19:16 | CM.ED ---
APRIL Note: SW was called by Switchboard that ICU wanted to speak to web content & social media manager. SW called ICU and spoke to patient. Laura said that patient has no one that would take responsibility and had no contacts. Laura said that patient is going to [facility] and inquired who would consent for transfer. APRIL reviewed situation with APRIL Hilario. Since patient has indicated she is a full code and there is no responsibility republican that is a decision maker the hospital is following patient's wishes and desire to continue treatment and thus needs to receive a higher level of care at [facility]. Patient is on a vent and can't verbally given consent for transfer. Treatment team is making a determination that as patient is a full code her treatment needs to be transferred to a tertiary care unit and thus MD can sign the transfer paperwork. APRIL updated Laura that this personal lines underwriter will document this conversation and review by this personal lines underwriter and APRIL Hilario. APRIL explained that MD needs to sign the consent for transfer and this is due to patient needing a higher level of care in accordance with her wishes to be a full code. Plan: Higher level of care Kyung HERRERA
--- NOTE | 2021-05-15 20:47 | DS.PCM_ITS ---
Providers Date of Admission: 05/14/21 Primary Care Physician: Brionna Primary Care Phys Consultations 05/14/21 05:23 Consult: Gastroenterology Routine Consulting Provider: Elsa Gastroenter[facility] Reason for Consult: Esophageal dilation and impaction EMERGENT Consult: No Notified: Yes Date Notified: 05/14/21 Time Notified: 01:45 Method of Notification: Page Consult: Creative Services Manager / Pulmonary Medicine Routine Consulting Provider: Pulmonary Medicine jarrett [place] Reason for Consult: Acute hypoxic respiratory failure EMERGENT Consult: No Notified: Yes Date Notified: 05/14/21 Time Notified: 05:24 Method of Notification: Text Method of Consult:: In-Person Reason For Visit: ESOPHAGEAL OBSTRUCTION/ACUTE HYPOXIC RESP Diagnosis Discharge Diagnosis (1) Acute respiratory failure with hypoxia: Status: Acute Code(s): J96.01 - Acute respiratory failure with hypoxia (2) Esophageal dilatation: Status: Acute Code(s): K22.89 - Other specified disease of esophagus Medications at Discharge Home Medications pantoprazole 40 mg PO DAILY #30 tab 10/06/19 Hospital Course Summary of Care Provided Minutes Spent on Discharge: 15 Hospital Course: DEBI SWAIN, is a 65 F who presented to the emergency department [facility] on 05/13/2021 with shortness of breath that started 3 hours prior to admission. She reported to the ED physician that she was eating fish and choked and believes food went into her trachea. Upon EMS arrival her oxygen saturation was 60%. On presentation she denied chest pain per documentation and was placed on a nonrebreather with normalization of her oxygen saturations. At the time of admission she denied any difficulty swallowing her own secretions and stated that this had happened before but she did not require an EGD at that time. Chest x-ray was performed and demonstrated widened mediastinum for which a CTA of the chest was performed and showed no pulmonary embolus, aortic dissection or aneurysm but a markedly dilated esophagus filled with debris and fluid that extended above the tracheal crow. Because the patient was not able to lie flat to have the CTA performed, she was electively intubated for this procedure. Since her mediastinum was so incredibly widened on her chest x-ray it was felt prudent to obtain a good study to further evaluate what was the cause of the widened mediastinum. Other than her hypoxemia her vital signs were stable throughout her hospital course.. Given the extensiveness of her esophageal dilation both GI and critical care medicine recommended transfer to tertiary center. Multiple facilities were called and the patient was accepted for transfer at [facility] pending bed availability. She was denied at multiple other hospitals given their current bed situations. On admission her CBC showed a mild leukocytosis of 12 which trended up and now has normalized, but is otherwise unremarkable. Her BMP showed mild hypokalemia with a potassium of 3.0 which has since been replaced and normalized. The rest of her BMP is unremarkable at the time of discharge. She was admitted to the intensive care unit awaiting a bed at [facility] in [place]. She maintained stability throughout her course and was treated with empiric Unasyn given concern for aspiration on admission. Her sputum culture was consistent with respiratory eric but culture had not resulted as final at d ischarge. Her Covid test was negative on 05/13/2021. On the evening of 05/15/2021 a bed became available at [facility] when she was transferred in stable condition to [facility]. Discharge diagnoses: Acute hypoxic respiratory failure Esophageal food impaction with marked dilation Aspiration pneumonia Hypokalemia GERD Hyperglycemia Severe malnutrition Homelessness Medical Records Data Medical Nutrition Assessment Dietitian: Malnutrition Criteria Met Start: 05/14/21 12:49 Freq: Status: Active Protocol: Document 05/15/21 11:47 AG (Rec: 05/15/21 11:47 AG [id number]) Nutrition Malnutrition Evidence of Malnutrition Exists Yes Malnutrition (severe): Chronic Evidenced By Weight Loss (Severe),Physical Changes (Severe) Intake Problem Inadequate Oral Intake Etiology r/t esophageal obstruction Signs/Symptoms as evidenced by inability to consume PO nutrition Status Active Problem Clinical Problem Chronic Disease or Condition Related Malnutrition Etiology severe, chronic malnutrition r /t predicted suboptimal energy intake d/t swallowing dysfunction and/or homelessness Signs/Symptoms as evidenced by severe muscle wasting/fat loss in upper extremities, acromion, clavicle, and orbital region per physical exam; unintentional wt loss of 13kg/ 25% >1 year; BMI 15.4 Status Active Problem Recommendation Dietitian Recommendations/Changes Will provide nutrition support recommendations as indicated. Weight / BMI Weight Weight: 40.8 kg Body Mass Index (BMI) 14.6 ABG / Lab / Microbiology Data Result Diagrams: 05/15/21 03:45 05/15/21 03:45 Laboratory: Laboratory Results - last 24 hr 05/15/21 03:45: WBC 10.9, RBC 3.93 L, Hgb 12.0, Hct 37.3, MCV 94.9, MCH 30.5, MCHC 32.2, RDW Std Deviation 55.9 H, RDW Coeff of Maribell 15.9 H, Plt Count 298, MPV 8.6, Immature Gran % (Auto) 0.500, Neut % (Auto) 74.4 H, Lymph % (Auto) 15.9 L, [place] % (Auto) 8.7, Eos % (Auto) 0.2, Baso % (Auto) 0.3, Absolute Neuts (auto) 8.1 H, Absolute Lymphs (auto) 1.73, Nucleated RBC % 0 05/15/21 03:45: Sodium 141, Potassium 3.7, Chloride 106, Carbon Dioxide 27.0, Anion Gap 8, BUN 9, Creatinine 0.68, Estim Creat Clear Calc 35.64, Est GFR (MDRD) Af Amer 112, Est GFR (MDRD) Non-Af 92, BUN/Creatinine Ratio 13.3, Glucose 85, Calcium 8.0 L, Magnesium 1.8, Total Bilirubin 0.40, AST 39 H, ALT 52, Alkaline Phosphatase 65, Total Protein 5.9 L, Albumin 2.5 L, Globulin 3.4, Albumin/Globulin Ratio 0.7 L Microbiology: Microbiology 05/14/21 07:20 Sputum, Induced/Lukens Gram Stain - Final 05/14/21 07:20 Sputum, Induced/[place]ukens Respiratory Culture - Preliminary Appears to be normal respiratory eric. Further studies to follow. 05/13/21 18:50 Nasal Secretion SARS-CoV-2 Antigen (Rapid) - Final Meaningful Use Info Meaningful Use Diagnoses (Choose all that apply): None applicable Discharge Plan Admission Admit Date/Time: 05/14/21 01:01 Primary Reason for Your Visit: aspiration/esophageal impaction Attending Provider: Raz Galvez Primary Care Provider: Care Physician,No Primary Consulting Providers: Cholo Werner ; Broderick Cisneros ; Selma Gil BRICK PITCHER Discharge Orders/Prescriptions Prescriptions: No Action pantoprazole 40 MG tablet 40 mg PO DAILY Qty: 30 RF: 0 Referrals / Follow Up: Care Physician,No Primary [Primary Care Provider] - Disposition Disposition (needs filled in before D/C Order can be placed): [facility]
--- NOTE | 2021-05-15 20:50 | NURSING ---
[facility] ground transport crew at bedside to transport patient.
--- NOTE | 2021-05-15 21:25 | NURSING ---
[facility] ground crew departs with patient for transport to [facility]. This RN attempts to call report, phone rings but eventually goes to busy signal.
--- NOTE | 2021-05-15 22:10 | NURSING ---
[facility] RN calls, nurse to nurse report given.
--- NOTE | 2021-05-15 22:15 | CM.ED ---
SW Note SW called ICU to check on status of patient going to [facility]. SW spoke to Morena who advised patient had already been transferred to [facility]. No further SW needs at this time. Plan: Mike HERRERA
--- NOTE | 2021-05-16 08:46 | CASEMGMT ---
SW called Ankush with [facility], message left letting her know pt went to [facility]. SW called the [facility] dept and left a message for the SW there to call this SW should she want additional information regarding who SW in ICU has attempted to contact and who she did contact regarding family. DEVORA Cisneros
--- NOTE | 2021-05-16 14:08 | CASEMGMT ---
Addendum entered by Negin De La Rosa 05/16/21 14:51: SW spoke w/the SW at [facility], gave her the information in regard to all of the people SW Irene had called and attempted to call for pt, and she has the information below as well. DEVORA Cisneros Original Note: Pt's aunt called in, Sekou Porter([phone]), asking for information. escrow secretary passed information on to this SW. SW called [facility] SW dept and gave her information to the SW department to follow up. SW also left this SW's number should they want any additional information about who SW here attempted to and did contact for pt. BERNARD CisnerosS
== END 2021-05-15 21:30 | disposition short-term general hospital (02) | DRG 393 ==
LOC: ED 05-14 00:51 → ICU 05-14 01:33
PROVIDERS: Admitting Provider Internal Medicine; Emergency Provider Emergency Medicine; Visit Provider Internal Medicine
DX: T18.128A Food in esophagus causing other injury, initial encounter (principal); J96.01 Acute respiratory failure with hypoxia; J69.0 Pneumonitis due to inhalation of food and vomit; E43 Unspecified severe protein-calorie malnutrition; J98.59 Other diseases of mediastinum, not elsewhere classified; X58.XXXA Exposure to other specified factors, initial encounter; K22.89 Other specified disease of esophagus; E87.6 Hypokalemia; K21.9 Gastro-esophageal reflux disease without esophagitis; R73.9 Hyperglycemia, unspecified; Z59.01 Sheltered homelessness
CPT/HCPCS: 31500; 31720; 36600; 51702; 71045; 71275; 80048; 80053; 82803; 83735; 84100; 84443; 85025; 85379; 87070; 87205; 87426; 93005; 94002; 94003; 94640; 97166; 99251; 99285; J7030; J7050; Q9967; A4216; G0463; J0295; J0330; J3010